=== PATIENT | female | born 2000 | race Caucasian/White ===

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

== ENCOUNTER 2021-04-19 10:37 | Outpatient (REF) | payer OTHER, SELFPAY ==
[2021-04-19 19:27] LABS: Anion Gap 12.8 mmol/L (3-11); BUN 14 mg/dL (7-18); CO2 24.2 mmol/L (21.0-32.0); CREATININE 0.7 mg/dL (0.55-1.02); Calcium 9.2 mg/dL (8.5-10.1); Chloride 103 mmol/L (98-107); Glucose 88 mg/dL (74-106); Potassium 4.3 mmol/L (3.5-5.1); Sodium 140 mmol/L (136-145)
== END 2021-04-19 10:38 | disposition home or self-care (01) ==
LOC: NCHCN 10:37
PROVIDERS: Visit Provider Nurse Practitioner Family
DX: Z51.81 Encounter for therapeutic drug level monitoring (principal); N89.8 Other specified noninflammatory disorders of vagina
CPT/HCPCS: 80048; 87480; 87510; 87660

== ENCOUNTER 2021-08-26 20:40 | Outpatient (REF) | payer MEDICAID, SELFPAY ==
[2021-08-28 14:49] LABS: Chlamydia Result Negative (Negative); GC Result Negative (Negative)
== END 2021-08-26 20:41 | disposition home or self-care (01) ==
LOC: LBN 20:40
PROVIDERS: Visit Provider Nurse Practitioner Family
DX: Z11.3 Encounter for screening for infections with a predominantly sexual mode of transmission (principal)
CPT/HCPCS: 87491; 87591

== ENCOUNTER 2022-06-02 18:48 | Outpatient (REF) | payer BC, SELFPAY ==
[2022-06-02 20:26] LABS: Bilirubin Negative (Negative); Blood Negative (Negative); Clarity Sl Cloudy (Clear); Glucose Negative (Negative); Ketones Negative (Negative); Leukocyte Esterase Negative (Negative); Nitrite Negative (Negative); Specific Gravity 1.025 (1.005-1.025); Urobilinogen 0.2 EU/dL (Up TO 0.2)
== END 2022-06-02 18:49 | disposition home or self-care (01) ==
LOC: NCHCN 18:48
PROVIDERS: Visit Provider Nurse Practitioner Family
DX: R10.9 Unspecified abdominal pain (principal)
CPT/HCPCS: 81003

== ENCOUNTER 2022-06-06 19:32 | Emergency (ER) | payer BC, SELFPAY ==
--- NOTE | 2022-06-06 19:43 | ED.GENADUL_ITS ---
Discharge Plan Disposition Patient Disposition: HOME Condition: Stable Discharge Details Clinical Impression: Ovarian cyst rupture Primary Care Provider: Kaylynn Tristan ED Provider: Jacqueline Magallon Home Meds and New Rx's Prescriptions: Continued norgestimate-ethinyl estradiol [[place]ah] 0.25-35 mg-mcg tablet 1 tab PO DAILY Discharge Instructions Instructions: Ovarian Cyst (ED) Additional Instructions: Please follow-up with the [facility] doctor listed Presents for ultrasound on Thursday 8 Should you have return of pain, you should have an immediate ultrasound Ibuprofen and Tylenol as needed for discomfort Referrals: Roxane Canales DO [OSTEOPATHIC DOCTOR] - Discharge Data Discharge Date/Time-TO BE ENTERED AT DEPARTURE: 06/06/22 23:17 Medical Decision Making Patient without obvious evidence of torsion, clinically patient is resting comfortably in room with mild tenderness in the right lower quadrant CT shows evidence of likely ruptured ovarian cyst, suspect this is hemorrhagic given her level of pain initially She is otherwise hemodynamically stable, CBC and CMP are reassuring She declines as needed analgesia She will take ibuprofen and Tylenol as needed for pain She is aware that she will need an emergent ultrasound of her ovaries should her pain return She is safe for outpatient ovarian ultrasound on Thursday as we do not have capability to perform ultrasonography in the evening or weekend facility Medical Records Medical records reviewed: Yes I reviewed the patient's medical records. Lab Data Lab results reviewed: Yes I reviewed the patient's lab results. HPI General Date/Time Provider Initiated Documentation: 06/06/22 19:41 . HPI Narrative: This otherwise healthy 21-year-old female presents with report of bilateral lower abdominal discomfort. She states this has been ongoing intermittently since the when she was seen at urgent care. States today she presents at approximately 3 she had severe pain in bilateral lower quadrants. She states that she had a similar episode on the but it resolved quickly. She states this episode lasted approximately 2 to 3 minutes and then resolved. At this time she is not in pain. She denies any nausea or vomiting. She denies history of urinary complaints. She denies any chance of . She denies risk of sexually transmitted disease and sexually active and monogamous with her partner. She denies any dyspareunia. Pain was reportedly initially exacerbated with ambulation, is now resolved. Sharp at time of onset. Related Data Home Medications Medication Instructions Recorded Confirmed norgestimate 0.25 mg-ethinyl 1 tab PO DAILY 10/26/20 06/09/22 estradiol 35 mcg tablet ([place]-L[place]ah) Allergies Allergy/AdvReac Type Severity Reaction Status Date / Time No Known Allergies Allergy Unverified 06/09/22 13:20 Review of Systems All systems reviewed & are unremarkable except as noted in HPI and below PFSH All Active Problems (Updated 06/09/22 @ 15:48 by JOHN Huff) Ovarian cyst rupture (Acute) Hemorrhagic cyst of ovary (Acute) Missed menses (Acute) Contraception (Acute) Family History Mother Hypothyroidism Father No problems noted. Sister No problems noted. Sister No problems noted. Brother No problems noted. Social History Smoking/Tobacco Use Status: Never Smoking risk assessment performed?: Yes Alcohol Intake: never Substance use type: does not use Do you feel safe at home: Yes Do you feel safe in your relationship?: Yes History History 0 Para Hx # Term Pregnancies Multiple births Hx # Pregnancies Ectopic pregnancies AB induced Hx Number of Living Children AB spontaneous Exam Const General: cooperative, comfortable and no acute distress Eyes Pupils: PERRL Resp Effort & Inspection: normal respiratory effort Auscultation: clear to auscultation bilaterally Cardio Rate: regular rate Rhythm: regular rhythm GI Inspection: normal to inspection Other: bilateral pelvic tenderness Skin General skin exam: no rashes or lesions noted Neuro General: patient alert and patient oriented x3
[2022-06-06 19:50] VITALS: BP 113/76; PULSE 92; RESP 16; TEMP 37.2; O2SAT 98
--- NOTE | 2022-06-06 20:15 | DI.CT_ITS ---
Exam(s) CT ABDOMEN PELVIS W EXAM: CT ABDOMEN PELVIS W CLINICAL HISTORY: RLQ pain. TECHNIQUE: Imaging Protocol: Axial computed tomography images with coronal and sagittal reformatted images were created and reviewed CONTRAST MATERIAL: Intravenous: Omnipaque 100cc Oral: None COMPARISON: US ABDOMEN PELVIS ULTRASOUND from 05/30/2017 FINDINGS: VISUALIZED LUNG BASES: No nodules nor pleural effusions evident. ABDOMEN: There is no ascites in the upper abdomen. LIVER: There are no focal hepatic lesions evident . GALLBLADDER/BILIARY: Gallbladder is collapsed. No obvious radiopaque calculi within the lumen. CBD is not dilated. PANCREAS: No evidence of pancreatic mass nor dilatation of the pancreatic duct. SPLEEN: Spleen is not enlarged. No obvious intrasplenic lesions. There is a 12 x 10 millimeter dens ity interposed between the spleen and lateral border of the upper pole left kidney. This is probably a benign splenule ADRENALS: There are no significant adrenal masses. KIDNEYS:No cysts evident. No solid renal masses. No calculi nor hydronephrosis.. ABDOMINAL AORTA: Abdominal aorta is not enlarged. LYMPH NODES:There is no retroperitoneal nor paraaortic adenopathy. ABDOMINAL WALL: No evidence of significant anterior abdominal wall nor inguinal hernia. GI: There is no evidence of bowel obstruction, free air, nor abscess. PELVIS: GI: The appendix is difficult to visualize as a separate structure here.No evidence of sigmoid divert iculitis. LYMPH NODES: There is no intrapelvic nor inguinal adenopathy. REPRODUCTIVE: Uterus is retroverted/retroflexed.. In the right adnexa there is a large cyst, probabl y ovarian. This measures 5.4 cm craniocaudal by 4.5 cm wide. Slightly smaller cyst in the left adne xa noted which is possibly in the process of rupturing, given its appearance, as well as moderate kerrie unt of fluid in the cul-de-sac. URINARY BLADDER: No calculi nor obvious masses evident OSSEOUS: No significant osseous lesions. No fractures. SI joints appear unremarkable. IMPRESSION: 1. Large cysts in both adnexal regions with a left ovarian cyst appearing to be rupturing and this ma y explain the small-moderate amount of free fluid in the dependent aspect of the gzwiqy-nfz-ni-sac. The uterus is noted to be retroverted-retroflexed. 2. 12 x 10 millimeter structure/density interposed between the nonenlarged spleen and the lateral bor tyler of the left kidney. This is probably a benign splenule. Study 1st read by [facility] RADIATION DOSE DELIVERED: 805.43mGy.cm Total DLP DATA REPOSITORY: All CT scans at this facility are submitted to the National Radiology Data Registry (NRDR) Dose Index Registry (DIR) with the [employer] (ACR). RADIATION OPTIMIZATION: All CT scans at this facility use at least one of these dose optimization te chniques: automated exposure control; mA and/or kV adjustment per patient size (includes targeted exa ms where dose is matched to clinical indication); or iterative reconstruction.
[2022-06-06 21:38] LABS: Bilirubin Negative (Negative); Blood Negative (Negative); Clarity Clear (Clear); Glucose Negative (Negative); Ketones Negative (Negative); Leukocyte Esterase Negative (Negative); Nitrite Negative (Negative)
[2022-06-06 21:38] LABS: Abs Immature Grans 0.03 10^3/uL (0.0-0.06); Absolute Basophil Count 0.03 10^3/uL (0.0-0.2); Absolute Eosinophil Count 0.09 10^3/uL (0.0-0.7); Absolute Lymphocyte Count 1.92 10^3/uL (1.2-3.4); Absolute Monocyte Count 0.45 10^3/uL (0.1-0.8); Absolute Neutrophil Count 4.86 10^3/uL (1.2-6.7); Basophils % 0.4; Eosinophils % 1.2; HCT 42.7 % (36.0-46.0); HGB 13.9 g/dL (11.2-15.7); Immature Grans % 0.4; MCH 28.6 pg (27.0-33.0); MCHC 32.6 % (32.0-36.0); MCV 88 fL (80-95); MPV 10.2 fL (8.0-11.0); Monocytes % 6.1; Neutrophils % 65.9; Platelet Count 247 10^3/uL (130-400); RBC 4.86 10^6/uL (3.93-5.22); RDW 12.8 % (11.7-14.6); RDW-SD 41.2 fL; WBC 7.38 10^3/uL (4.4-10.8)
[2022-06-06] MEDS: Omnipaque 350 MG/ML 100 ML BTL IJ (21:47)
[2022-06-06 21:52] LABS: ALT 24 U/L (14-59); AST 15 U/L (15-37); Albumin 3.9 g/dL (3.4-5.0); Alkaline Phosphatase 69 U/L (46-116); Anion Gap 7.4 mmol/L (3-11); BUN 7 mg/dL (7-18); Bilirubin, Total 0.2 mg/dL (0.2-1.0); CO2 28.6 mmol/L (21.0-32.0); CREATININE 0.6 mg/dL (0.55-1.02); Calcium 9.4 mg/dL (8.5-10.1); Chloride 104 mmol/L (98-107); Glucose 97 mg/dL (74-106); Potassium 3.9 mmol/L (3.5-5.1); Sodium 140 mmol/L (136-145); Total Protein 7.8 g/dL (6.4-8.2)
--- NOTE | 2022-06-06 22:27 | DI.VRAD_ITS ---
PROCEDURE INFORMATION: Exam: CT Abdomen And Pelvis With Contrast Exam date and time: 06/06/2022 9:48 PM Age: 21 years old Clinical indication: Other: Rlq pain TECHNIQUE: Imaging protocol: Computed tomography of the abdomen and pelvis with contrast. Radiation optimization: All CT scans at this facility use at least one of these dose optimization techniques: automated exposure control; mA and/or kV adjustment per patient size (includes targeted exams where dose is matched to clinical indication); or iterative reconstruction. Contrast material: OMNIPAQUE 350; Contrast volume: 100 ml; Contrast route: INTRAVENOUS (IV); COMPARISON: US ABDOMEN PELVIS ULTRASOUND 05/30/2017 1:08 PM FINDINGS: Lungs: The imaged lung bases are clear. Pleural spaces: No pleural effusion. Heart: The heart is normal in size. No pericardial effusion. Mediastinal space: The distal esophagus is normal appearance. Liver: The liver is mildly enlarged. No abnormal enhancement or mass. Gallbladder and bile ducts: The gallbladder is contracted. No calcified gallstones. No pericholecystic fluid or gallbladder wall thickening. No bile duct dilatation. Pancreas: The pancreas is normal appearance. No pancreatic ductal dilatation. Spleen: The spleen is normal appearance. Adrenal glands: The bilateral adrenal glands are normal appearance. Kidneys and ureters: The bilateral kidneys are normal appearance. Stomach and bowel: The stomach is normal appearance. The small bowel is nondilated and fluid-filled. A moderate amount of stool is seen throughout the colon to the level of the rectum. No bowel obstruction. Appendix: The appendix is normal appearance. Intraperitoneal space: No free air or abscess. A small to moderate amount of free pelvic fluid is seen, as described under the Reproductive findings. Vasculature: The abdominal aorta is normal in caliber without aneurysm. Lymph nodes: No lymphadenopathy. Urinary bladder: Mild circumferential wall thickening within the urinary bladder. The urinary bladder is nondistended. Reproductive: A large simple appearing right ovarian cyst is seen, measuring 5.3 x 4.7 x 6.3 cm. A probable defect is seen along the posterior wall of the cyst, adjacent to small to moderate amount of free pelvic fluid. This likely represents an acutely rupturing physiological cyst. A cyst is also seen within the left ovary, which appears to be collapsing, measuring 3.2 x 3.9 x 3.7 cm. A small amount of fluid also surrounds the left ovarian cyst. The uterus is normal appearance. Bones/joints: No acute osseous abnormality. Soft tissues: Unremarkable. IMPRESSION: 1. Large bilateral simple appearing ovarian cysts, with a small to moderate amount of free pelvic fluid. This likely represents physiological cysts, which are rupturing/ruptured. This can be confirmed with a pelvic ultrasound, as clinically indicated. 2. Mild circumferential wall thickening within the urinary bladder, which may be due to underdistension. Cystitis could have this appearance, in the correct clinical context. Dictated and Authenticated by: Ginna Thompson MD. Ordering:FELIX Phillips MD
[2022-06-06 23:15] VITALS: BP 108/64; PULSE 65; RESP 16; TEMP 37.2; O2SAT 99
--- NOTE | 2022-06-07 08:36 | NUR.NOTE ---
patient called to see if she needed to be on an abx for her burst cyst. Advised her that normally patients aren't put on an abx for this unless there was some sign of infection.
== END 2022-06-06 23:17 | disposition home or self-care (01) ==
PROVIDERS: Emergency Provider Physician Assistant; PCP Nurse Practitioner Family
DX: N83.11 Corpus luteum cyst of right ovary (principal)
CPT/HCPCS: 80053; 81025; 99285; 74177; 81003; 85025; 99284; J3490

== ENCOUNTER 2022-06-09 13:09 | Emergency (ER) | payer BC, SELFPAY ==
[2022-06-09 13:14] VITALS: BP 121/66; PULSE 84; RESP 16; TEMP 37.5; O2SAT 100
--- NOTE | 2022-06-09 14:55 | W.ED.GENAD ---
Discharge Plan Disposition Patient Disposition: HOME Condition: Stable Discharge Details Clinical Impression: Hemorrhagic cyst of ovary Primary Care Provider: Kaylynn Tristan ED Provider: Kya Rodriguez Home Meds and New Rx's Prescriptions: Continued norgestimate-ethinyl estradiol [[place]-Linyah] 0.25-35 mg-mcg tablet 1 tab PO DAILY Discharge Instructions Instructions: Ovarian Cyst (ED) Additional Instructions: As we discussed, your ultrasound shows cysts on both of your ovaries. I would like for you to follow up with [facility] to reassessment and continued management. Please call to schedule appointment, number listed below. You may use ibuprofen for discomfort. Please continue with your control until reassessed by [facility]. If you develop increased pain, fevers/chills, or other new/worsening symptoms, please seek care urgently once again. Referrals: Roxane Canales DO [OSTEOPATHIC DOCTOR] - Discharge Data Discharge Date/Time-TO BE ENTERED AT DEPARTURE: 06/09/22 15:56 Medical Decision Making Patient is a pleasant 21 year old female presenting today for results of her US after being seen in the ED 3 days ago with RLQ discomfort and CT findings concerning for ruptured ovarian cyst. She states pain has improved. No fevers/chills. No N/V. States that this was associated with menses. Had stopped her OCP briefly in the upcoming month as she was not sure if she was ready to concieve but went back on it. Typically does not have this type of pain with her menses since she began her OCP years ago. US reviewed by radiologist: UTERUS: Position: Retroverted. Size: 5.8 long by 4.0 AP by 5.0 transverse cm Endometrium: 0.8 cm. Normal for patient's menstrual status. Myometrium: Unremarkable. Cervix: Unremarkable. OVARIES: Right: 6.8 x 4.0 x 5.0 cm Cyst or mass: There is a 4.8 x 3.1 x 5.4 cm hemorrhagic cyst with retracting clot.? Left: 5.0 x 3.1 x 4.4 cm Cyst or mass: There is a 4 x 4 x 3.3 cm hemorrhagic cyst.? DOPPLER: Color: Symmetric and uniform flow to both ovaries.? CUL-DE-SAC: Free fluid: Small amount of fluid in the cul-de-sac.? Other: None. IMPRESSION: 1. Limited evaluation of the kidneys is unremarkable. 2. Normal-appearing uterus with endometrial stripe within normal limits. 3. Bilateral hemorrhagic cysts.? Consulted with Dr. Canales and reviewed tthe case, she advised that she will f/u with pt in clinic. Can use NSAID for discomfort. Discussed these recommendations with the patient. Discussed return precautions. As her pain is resolved at this time, no further emergent intervention warranted at this time. [facility] Patient also has not yet had her first PAP and encouraged she discuss this with them as well. All of her quesitons and concerns were addressed, she is in agreement with this plan. HPI General Date/Time Provider Initiated Documentation: 06/09/22 14:55. Limitations to Documentation: no limitations. Information obtained by: patient, RN notes reviewed and old records reviewed. History of Present Illness 21 year old F presents to the emergency department with the chief complaint of f/u for recent US of RUQ pain, concerned for ruptured ovarian cyst, described as mild (states pain has resolved since she was here 3 days ago), and is localized to the abdomen. Patient reports no radiation. Patient started experiencing this day(s) and it has been now resolved. No relieving factors improve symptom(s), No exacerbating factors reported . Patient notes no other symptoms.. Patient did receive the following treatments prior to arrival, none Related Data Home Medications Medication Instructions Recorded Confirmed norgestimate 0.25 mg-ethinyl 1 tab PO DAILY 10/26/20 06/09/22 estradiol 35 mcg tablet ([place]) Allergies Allergy/AdvReac Type Severity Reaction Status Date / Time No Known Allergies Allergy Unverified 06/09/22 13:20 General Stated Complaint: Recheck CORNELIA: 5 Review of Systems Constitutional Constitutional: Reports as per HPI, Denies chills and Denies fever(s) Cardiovascular Cardiovascular: Reports as per HPI and Denies dyspnea Respiratory Respiratory: Reports as per HPI, Denies cough and Denies dyspnea Gastrointestinal Gastrointestinal: Reports as per HPI Integumentary/Breasts Skin/Breast: Reports as per HPI and Denies rash PFSH All Active Problems (Updated 06/09/22 @ 15:48 by JOHN Huff) Ovarian cyst rupture (Acute) Hemorrhagic cyst of ovary (Acute) Missed menses (Acute) Contraception (Acute) Family History Mother Hypothyroidism Father No problems noted. Sister No problems noted. Sister No problems noted. Brother No problems noted. Social History Smoking/Tobacco Use Status: Never Smoking risk assessment performed?: Yes Alcohol Intake: never Substance use type: does not use Do you feel safe at home: Yes Do you feel safe in your relationship?: Yes History History 0 Para Hx # Term Pregnancies Multiple births Hx # Pregnancies Ectopic pregnancies AB induced Hx Number of Living Children AB spontaneous Exam Const General: cooperative, healthy appearing, comfortable, no acute distress and well developed Nutritional Appearance: average body habitus and well nourished Orientation: alert and awake Resp Effort & Inspection: normal respiratory effort, able to speak in complete sentences and no respiratory distress Skin General skin exam: no rashes or lesions noted Trauma: no lacerations or abrasions Neuro General: patient alert and patient awake Cognition: normal cognition Speech: speech normal Gait: normal gait Psych Appearance: grossly normal and well kempt Mental Status: mental status grossly normal Speech and Movement: speech and movement normal Course Vital Signs Vital signs: Vital Signs Temperature 37.5 C 06/09/22 13:14 Pulse 84 06/09/22 13:14 Respiratory Rate 16 06/09/22 13:14 Blood Pressure 121/66 06/09/22 13:14 Pulse Oximetry 100 06/09/22 13:14 Temperature 37.5 C 06/09/22 13:14 Temperature Source Temporal Artery Scan 06/09/22 13:14 Pulse 84 06/09/22 13:14 Respiratory Rate 16 06/09/22 13:14 Respiratory Effort Non-Labored 06/09/22 13:17 Blood Pressure 121/66 06/09/22 13:14 Blood Pressure Position Sitting 06/09/22 13:14 Pulse Oximetry 100 06/09/22 13:14 Oxygen Delivery Method Room Air 06/09/22 13:14 Oxygen Flow Rate 0 06/09/22 13:14 Pain Level 0 06/09/22 13:14
== END 2022-06-09 15:56 | disposition home or self-care (01) ==
PROVIDERS: Emergency Provider Physician Assistant; PCP Nurse Practitioner Family
DX: N83.201 Unspecified ovarian cyst, right side (principal); N83.202 Unspecified ovarian cyst, left side
CPT/HCPCS: 99281; 99282

== ENCOUNTER 2022-07-02 21:35 | Outpatient (REF) | payer BC, SELFPAY ==
[2022-07-03 14:41] LABS: Chlamydia Result Negative (Negative); GC Result Negative (Negative)
== END 2022-07-02 21:36 | disposition home or self-care (01) ==
LOC: LBN 21:35
PROVIDERS: PCP Nurse Practitioner Family; Visit Provider Obstetrics & Gynecology
DX: Z11.3 Encounter for screening for infections with a predominantly sexual mode of transmission (principal)
CPT/HCPCS: 87491; 87591

== ENCOUNTER 2022-12-01 13:32 | Outpatient (REF) | payer BC, SELFPAY ==
--- NOTE | 2022-12-01 13:20 | PAPFT_PTH ---
PATIENT: Delmy Lazo LOC: [facility] U#:[id number] AGE/SX: 22/F ROOM: RE12/01/[address]: Sangita Licona NP : 2000 BED: DIS: 12/01/2022 SPEC #: [id number] RECD: 12/01/22 17:52 STATUS: JORGE REGodwin #: [id number] NOÉ: 12/01/22 13:[address]: Sangita Licona NP DEPT: [facility], [facility] Cytology RECD BY: Jacqueline Tolbert ENTERED: 12/01/22 17:52 SP TYPE: PAPFT OTHR DR: Kaylynn Tristan Tissues: 1 - CX/ENDOCX FOR PAP SMEARS Procedures: PAP THIN PREP/UVM Screening Comments: [id number] (CHLAMYDIA/GC)
[2022-12-02 13:55] LABS: Chlamydia Result Negative (Negative); GC Result Negative (Negative)
== END 2022-12-01 13:33 | disposition home or self-care (01) ==
LOC: LBN 13:32
PROVIDERS: PCP Nurse Practitioner Family; Visit Provider Nurse Practitioner Women's Health
DX: Z11.3 Encounter for screening for infections with a predominantly sexual mode of transmission (principal); Z12.4 Encounter for screening for malignant neoplasm of cervix
CPT/HCPCS: 87491; 87591; 88142

== ENCOUNTER 2023-04-15 21:49 | Outpatient (REF) | payer BC, SELFPAY | END 2023-04-15 21:50 | disposition home or self-care (01) | LOC: NCHCN 21:49 | PROVIDERS: PCP Nurse Practitioner Family; Visit Provider Nurse Practitioner Family | DX: N89.8 Other specified noninflammatory disorders of vagina (principal) | CPT/HCPCS: 87480; 87510; 87660 ==

== ENCOUNTER 2023-04-24 20:58 | Outpatient (REF) | payer BC, SELFPAY ==
[2023-04-24 21:25] LABS: Bilirubin Negative (Negative); Blood Trace-intact (Negative); Clarity Clear (Clear); Glucose Negative (Negative); Ketones Negative (Negative); Leukocyte Esterase Negative (Negative); Nitrite Negative (Negative); Specific Gravity <= 1.005 (1.005-1.025); Urobilinogen 0.2 mg/dL (Up to 0.2)
[2023-04-24 21:47] LABS: Bacteria Rare HPF (Negative); C & S Indicated? No; Casts Negative LPF (Negative); Crystals Negative HPF (Negative); Epithelial Cells Rare HPF (Negative); Mucus Negative (Negative); RBC 0-2 HPF (0-2); WBC 0-2 HPF (0-5)
== END 2023-04-24 20:59 | disposition home or self-care (01) ==
LOC: LBN 20:58
PROVIDERS: PCP Nurse Practitioner Family; Visit Provider Physician Assistant
DX: N76.0 Acute vaginitis (principal); N39.0 Urinary tract infection, site not specified
CPT/HCPCS: 81003; 81015; 87480; 87510; 87660

== ENCOUNTER 2023-04-25 16:19 | Outpatient (REF) | payer BC, SELFPAY ==
[2023-04-27 09:34] LABS: Chlamydia Result Negative (Negative); GC Result Negative (Negative)
== END 2023-04-25 16:20 | disposition home or self-care (01) ==
LOC: LBN 16:19
PROVIDERS: PCP Nurse Practitioner Family; Visit Provider Physician Assistant
DX: R10.2 Pelvic and perineal pain (principal)
CPT/HCPCS: 87491; 87591

== ENCOUNTER 2023-09-21 16:51 | Outpatient (REF) | payer MEDICAID, SELFPAY ==
[2023-09-21 21:22] LABS: Bilirubin Negative (Negative); Blood Negative (Negative); Clarity Clear (Clear); Glucose Negative (Negative); Ketones Negative (Negative); Leukocyte Esterase Negative (Negative); Nitrite Negative (Negative); Specific Gravity 1.015 (1.005-1.025); Urobilinogen 0.2 mg/dL (Up to 0.2); pH 6.5 (5-8)
== END 2023-09-21 16:52 | disposition home or self-care (01) ==
LOC: LBN 16:51
PROVIDERS: PCP Nurse Practitioner Family; Visit Provider Nurse Practitioner Family
DX: R39.89 Other symptoms and signs involving the genitourinary system (principal); R35.0 Frequency of micturition; Z33.1 Pregnant state, incidental
CPT/HCPCS: 81003

== ENCOUNTER 2023-10-26 05:15 | Outpatient (CLI) | payer MEDICAID, SELFPAY ==
[2023-10-26 14:38] LABS: Panorama Kit Sent via Fed Ex
[2023-10-26 14:44] LABS: Abs Immature Grans 0.04 10^3/uL (0.0-0.06); Absolute Basophil Count 0.03 10^3/uL (0.0-0.2); Absolute Eosinophil Count 0.08 10^3/uL (0.0-0.7); Absolute Lymphocyte Count 1.71 10^3/uL (1.2-3.4); Absolute Monocyte Count 0.44 10^3/uL (0.1-0.8); Absolute Neutrophil Count 7.06 10^3/uL (1.2-6.7); Basophils % 0.3; Eosinophils % 0.9; HCT 38.5 % (36.0-46.0); Immature Grans % 0.4; Lymphocytes % 18.3; MCH 29.1 pg (27.0-33.0); MCHC 33.8 % (32.0-36.0); MCV 86 fL (80-95); MPV 9.7 fL (8.0-11.0); Monocytes % 4.7; Neutrophils % 75.4; Platelet Count 258 10^3/uL (130-400); RBC 4.47 10^6/uL (3.93-5.22); RDW 12.5 % (11.7-14.6); WBC 9.36 10^3/uL (4.4-10.8)
[2023-10-26 15:35] LABS: TSH (W/Ref FT4) 1.29 uIU/mL (0.36-3.74)
[2023-10-26 23:16] LABS: Hepatitis B Surface Ag Negative (Negative)
[2023-10-26 23:57] LABS: Hepatitis C Ab w Rflx HCV PCR Negative (Negative)
[2023-10-27 10:45] LABS: Rubella IgG Ab (UVM) Positive (See Note); Varicella IgG Antibody Negative (See Note)
[2023-10-27 11:25] LABS: HIV-1/2 Ag & Ab Screen Negative (Negative)
[2023-10-28 18:54] LABS: Syphilis IgG w/Reflex Nonreactive (Nonreactive)
[2023-11-13 12:42] LABS: Result Summary NEGATIVE; Specimen WB Whole Blood
== END 2023-10-26 05:16 | disposition home or self-care (01) ==
LOC: LBO 05:15
PROVIDERS: PCP Nurse Practitioner Family; Visit Provider Advanced Practice Midwife
DX: Z34.91 Encounter for supervision of normal pregnancy, unspecified, first trimester
CPT/HCPCS: 36415; 81220; 81222; 86787; 86803; 86850; 86900; 86901; 87340; 87389; 84443; 85025; 86762; 86780

== ENCOUNTER 2023-10-26 13:23 | Outpatient (REF) | payer MEDICAID, SELFPAY ==
[2023-10-26 15:53] LABS: *AMPHETAMINES SCREEN URINE Negative (Negative); *BARBITURATES SCREEN URINE Negative (Negative); *BENZODIAZEPINES SCREEN URINE Negative (Negative); Cannabinoids THC Negative (Negative); Cocaine Screen,Urine Negative (Negative); METHADONE URINE SCREEN Negative (Negative); OPIATES URINE SCREEN Negative (Negative)
[2023-10-26 15:56] LABS: Tricyclic Antidepressants Negative (Negative)
[2023-10-28 14:40] LABS: Chlamydia Result Negative (Negative); GC Result Negative (Negative)
[2023-10-30 08:52] LABS: Buprenorphine Negative ng/mL (Cutoff: 5.0); Norbuprenorphine Negative ng/mL (Cutoff: 2.5)
== END 2023-10-26 13:24 | disposition home or self-care (01) ==
LOC: LBN 13:23
PROVIDERS: PCP Nurse Practitioner Family; Visit Provider Advanced Practice Midwife
DX: Z34.91 Encounter for supervision of normal pregnancy, unspecified, first trimester
CPT/HCPCS: 80307; 80348; 87491; 87591; 87086

== ENCOUNTER → 2023-12-21 02:15 | Outpatient (CLI) | payer MEDICAID, SELFPAY ==
--- NOTE | 2023-12-21 07:30 | DI.US_ITS ---
Exam(s) US OB 2-3 TRIMESTER EXAM: US OB 2-3 TRIMESTER CLINICAL HISTORY: anatomy survey,z34.90,z34.91. TECHNIQUE: Transabdominal obstetrical ultrasound performed. COMPARISON: US US PELVIS TRANSVAGINAL from 06/09/2022 FINDINGS: Number of fetuses: 1 position: VARIED heart rate: 159bpm Placental location: There is a grade 1 posterior placenta. The placental tip is 4.6 cm from the inte rnal os. No evidence of previa. Amniotic fluid index: Amount of fluid is within normal limits. ANATOMICAL SURVEY: Within normal limits. BIOMETRIC DATA: BPD: 4.46cm, 19weeks 3days HC: 16.98cm, 19weeks 4days AC: 13.97cm, 19weeks 3days FL: 2.79cm, 18weeks 4days Cisterna magna: 6.6mm Cerebellum: 1.81cm Lateral ventricle: EFW: 271.41g, 0.61lb, 25.2% Composite Age: 19weeks 2days NAVA: 05/14/2024 Heart Rate: 159bpm ANATOMICAL SURVEY: Four-chambered heart: Unremarkable. RVOT: Unremarkable. LVOT: Unremarkable. Left-sided stomach: Unremarkable. urinary bladder: Unremarkable. Bilateral kidneys: Unremarkable. Three-vessel cord: Unremarkable. Cord insertion: Unremarkable. Posterior fossa: Unremarkable. ventricles: Unremarkable. nose/lips: Unremarkable. Palate: Unremarkable. spine: Unremarkable. Two arms and two legs: Unremarkable. IMPRESSION: 1. Single live intrauterine gestation as above. 2. Normal anatomic survey. DATA REPOSITORY:
== END ==
PROVIDERS: PCP Nurse Practitioner Family; Visit Provider Advanced Practice Midwife
DX: Z34.92 Encounter for supervision of normal pregnancy, unspecified, second trimester (principal); Z3A.19 19 weeks gestation of pregnancy
CPT/HCPCS: 76805

== ENCOUNTER 2024-01-04 12:23 | Outpatient (REF) | payer MEDICAID, SELFPAY | END 2024-01-04 12:24 | disposition home or self-care (01) | LOC: LBN 12:23 | PROVIDERS: PCP Nurse Practitioner Family; Visit Provider Advanced Practice Midwife | DX: O26.892 Other specified pregnancy related conditions, second trimester (principal); N89.8 Other specified noninflammatory disorders of vagina; Z3A.21 21 weeks gestation of pregnancy | CPT/HCPCS: 87480; 87510; 87660 ==

== ENCOUNTER 2024-01-30 03:47 | Emergency (ER) | payer MEDICAID, SELFPAY ==
[2024-01-30 03:50] VITALS: BP 127/71; PULSE 110; RESP 18; TEMP 36.8; O2SAT 100
[2024-01-30 04:19] LABS: Bilirubin Negative (Negative); Blood Large (Negative); Clarity Clear (Clear); Glucose Negative (Negative); Ketones Negative (Negative); Leukocyte Esterase Negative (Negative); Nitrite Negative (Negative); Urobilinogen 0.2 mg/dL (Up to 0.2)
[2024-01-30 04:21] LABS: Bacteria Rare HPF (Negative); C & S Indicated? No; Casts Negative LPF (Negative); Crystals Negative HPF (Negative); Epithelial Cells Few HPF (Negative); Mucus Negative (Negative); WBC Negative HPF (0-5)
[2024-01-30] MEDS: Normal Saline 1,000 ML 1000 ML IV (04:34)
[2024-01-30] MEDS: ACETAMINOPHEN 1,000 MG/100 ML BTL 400 MG IVPB (04:34)
[2024-01-30 04:35] LABS: Absolute Basophil Count 0.05 10^3/uL (0.0-0.2); Absolute Eosinophil Count 0.09 10^3/uL (0.0-0.7); Absolute Lymphocyte Count 1.29 10^3/uL (1.2-3.4); Absolute Monocyte Count 0.69 10^3/uL (0.1-0.8); Absolute Neutrophil Count 8.35 10^3/uL (1.2-6.7); Basophils % 0.5; Eosinophils % 0.8; HCT 33.8 % (36.0-46.0); HGB 11.4 g/dL (11.2-15.7); Immature Grans % 1.9; Lymphocytes % 12.1; MCH 30.4 pg (27.0-33.0); MCHC 33.7 % (32.0-36.0); MCV 90 fL (80-95); MPV 9.5 fL (8.0-11.0); Monocytes % 6.5; Neutrophils % 78.2; Platelet Count 190 10^3/uL (130-400); RBC 3.75 10^6/uL (3.93-5.22); RDW 13.5 % (11.7-14.6); RDW-SD 44.2 fL; WBC 10.67 10^3/uL (4.4-10.8)
--- NOTE | 2024-01-30 04:36 | W.ED.GENAD ---
Discharge Plan Disposition Patient Disposition: Home Condition: Improving Discharge Details Clinical Impression: Hematuria, Renal colic on left side Primary Care Provider: Kaylynn Tristan ED Provider: Kota Gary Home Meds and New Rx's Prescriptions: New metoclopramide HCl [Reglan] 10 mg tablet 10 mg PO Q8H PRN PRN (Reason: nausea and vomiting) Qty: 10 0RF hydrocodone-acetaminophen 5-325 mg tablet 1 tab PO Q8H PRN (Reason: pain) Qty: 10 0RF No Action PNV,calcium 16-hons-dqiro acid 27 mg iron- 1 mg tablet 1 tab PO DAILY Qty: 90 4RF Rx Instructions: give with food (meal/snack) Discharge Instructions Instructions: Renal Colic (ED) Additional Instructions: You can take two 325 mg acetaminophen tablets every 4-6 hours as needed for symptoms of left-sided flank pain. You can take 1 Reglan tablet every 8 hours as needed for symptoms of any nausea and vomiting that might develop. You can take 1 Yancey tablet up to every 8 hours as needed for pain not alleviated by the acetaminophen alone. Bear in mind that a Yancey tablet contains 325 mg of acetaminophen, so do not take additional acetaminophen with it. Yancey may make you sleepy or impair your coordination. Use caution similar to taking alcohol when using this medication. Never drive or perform any hazardous activities, be prepared to rest. Your symptoms are most likely going to resolve on their own over the course of the next 12 to 48 hours. If your symptoms are lasting longer than this, or not being treated well with this care plan, contact and follow-up with your [employer] group for further management instructions. You can always return to the ER for any new concerns or sudden changes in your health which you feel require emergency medical attention. Discharge Data Discharge Physician: Kota Gary [facility] General Date/Time Provider Initiated Documentation: 01/30/24 04:01. HPI Narrative: The patient is a 23-year-old female, G1, P0, at 25 weeks gestation, who presents the emergency department this evening complaining of a left flank discomfort which she describes as an intense tingling feeling which awoke her from sleep and prevented her from going back to bed. The patient urinated twice and saw blood in her urine, which she describes as a intense pink color. Patient denies any stabbing or piercing pain. The patient denies any nausea or vomiting associated with the symptoms. The patient has been having regular bowel movements. She denies having any significant prior history of recurrent urinary tract infections. She tells me that she only knows of 1 prior urinary tract infection which did not feel similar to this. She has not been sexually active with her current partner in the last 48 hours. She denies any bleeding from the vagina or any other vaginal discharge. Related Data Home Medications Medication Instructions Recorded Confirmed vitamin with calcium 1 tab PO DAILY #90 tabs 09/09/23 01/30/24 no.72-iron 27 mg-folic acid 1 mg tablet hydrocodone 5 mg-acetaminophen 325 1 tab PO Q8H PRN pain #10 tabs 01/30/24 mg tablet metoclopramide HCl 10 mg tablet 10 mg PO Q8H PRN PRN nausea and 01/30/24 (Reglan) vomiting #10 tabs Previous Rx's Medication Instructions Recorded vitamin with calcium 1 tab PO DAILY #90 tabs 09/09/23 no.72-iron 27 mg-folic acid 1 mg tablet hydrocodone 5 mg-acetaminophen 325 1 tab PO Q8H PRN pain #10 tabs 01/30/24 mg tablet metoclopramide HCl 10 mg tablet 10 mg PO Q8H PRN PRN nausea and 01/30/24 (Reglan) vomiting #10 tabs Allergies Allergy/AdvReac Type Severity Reaction Status Date / Time No Known Allergies Allergy Verified 01/30/24 03:58 General Stated Complaint: FlankPain CORNELIA: 3 Exam Const General: cooperative, healthy appearing, no acute distress, well developed and well groomed Resp Effort & Inspection: normal respiratory effort and able to speak in complete sentences Auscultation: clear to auscultation bilaterally Cardio Rate: regular rate Rhythm: regular rhythm GI Other: The patient has a gravid abdomen, with palpable movement. There are normal bowel sounds. There is no significant CVA tenderness. Neuro Cranial Nerves: CN's II-XI intact bilaterally Motor: muscle tone normal throughout and strength 5/5 throughout Sensory Exam: no sensory deficits noted Extrem Other: No significant cyanosis, clubbing, or edema. Course Vital Signs Vital signs: Vital Signs Temperature 36.8 C 01/30/24 03:50 Pulse 110 H 01/30/24 03:50 Respiratory Rate 18 01/30/24 03:50 Blood Pressure 127/71 01/30/24 03:50 Pulse Oximetry 100 01/30/24 03:50 Temperature 36.8 C 01/30/24 03:50 Temperature Source Temporal Artery Scan 01/30/24 03:50 Pulse 110 H 01/30/24 03:50 Respiratory Rate 18 01/30/24 03:50 Respiratory Effort Normal 01/30/24 03:56 Blood Pressure 127/71 01/30/24 03:50 Pulse Oximetry 100 01/30/24 03:50 Oxygen Delivery Method Room Air 01/30/24 03:50 Oxygen Flow Rate 0 01/30/24 03:50 Pain Level 2 01/30/24 03:56 Lab/Test Results Lab/Test Results: Laboratory Tests Range/Units 01/30/24 03:55 Urine Color (Yellow) Yellow Urine Clarity (Clear) Clear Urine pH (5-8) 7.0 Ur Specific [place] (1.005-1.025) 1.010 Urine Protein (Neg-Trace) mg/dL Negative Urine Ketones (Negative) mg/dL Negative Urine Blood (Negative) Large H Urine Nitrite (Negative) Negative Urine Bilirubin (Negative) Negative Urine Urobilinogen (Up to 0.2) mg/dL 0.2 Ur Leukocyte Esterase (Negative) Negative Urine RBC (0-2) HPF 10-20 H Urine WBC (0-5) HPF Negative Ur Epithelial Cells (Negative) HPF Few Urine Crystals (Negative) HPF Negative Urine Bacteria (Negative) HPF Rare Urine Casts (Negative) LPF Negative Urine Mucus (Negative) Negative Ur Culture Indicated? No Urine Glucose (Negative) mg/dL Negative Medical Decision Making The patient was seen and examined. Her urine was positive for essentially only red blood cells. A bedside ultrasound did not reveal any significant abnormalities in the visualized portions of the fetus or placenta. They did not appear to be any significant subchorionic bleeding on the visualized portions of the placenta. Images of the left kidney did not show any significant dilation of the calyx or visualized portions of the proximal ureter. While symptoms and available laboratory data to seem to support a likely renal stone in transit, there is no evidence to suggest a concomitant urinary tract infection. There were no white blood cells or leukocyte esterase within the urine. The patient does not have any fevers or chills. There are no urinary symptoms consistent with urinary tract infection such as urgency or frequency. The patient denies any lower pelvic cramping. The patient will have her kidney function checked here tonight, will be hydrated and given IV acetaminophen to help alleviate her discomfort. Assuming that she continues to have her current level of discomfort, the patient can most likely be discharged home with oral analgesics and close OB follow-up. 0630 - The patient has improved here in the ER with treatment. The patient likely has a small renal calculus which is minimally symptomatic, at least for now. I discussed the case with Dr. Jimenez, who will let the office know in case the patient has any significant decompnesation in the interval. Quality:SDOH Health Related Social Needs: No Data to Display PFSH All Active Problems (Updated 01/30/24 @ 06:34 by Kota Gary MD) Renal colic on left side (Acute) Hematuria (Acute) Rh negative state in antepartum period (Acute) Vaginal discharge during (Acute) Vaginal irritation (Acute) Sciatic nerve pain (Acute) Susceptible to varicella (non-immune), currently (Acute) Family history of thyroid disease in mother (Acute) (Acute) Medical History (Updated 01/30/24 @ 06:34 by Kota Gary MD) Constipation w/u by PCP, considering GI referral Hemorrhagic cysts of both ovaries Family History Mother Hypothyroidism Father No problems noted. Sister No problems noted. Sister No problems noted. Brother No problems noted. Social History Smoking/Tobacco Use Status: Never Smoking risk assessment performed?: Yes Alcohol Intake: never Substance use type: does not use current occupation: [employer] Pets and animals: Yes Pets and animals: dog(s) Sexually active: Yes Do you think of yourself as: straight/heterosexual Current gender identity: female Do you feel safe at home: Yes Do you feel safe in your relationship?: Yes History History 1 Para 0 Hx # Term Pregnancies 0 Multiple births 0 Hx # Pregnancies 0 Ectopic pregnancies 0 AB induced 0 Hx Number of Living Children 0 AB spontaneous 0
[2024-01-30 04:45] LABS: Anion Gap 11.7 mmol/L (3-11); BUN 8 mg/dL (7-18); CO2 23.3 mmol/L (21.0-32.0); CREATININE 0.5 mg/dL (0.55-1.02); Calcium 8.6 mg/dL (8.5-10.1); Chloride 105 mmol/L (98-107); Estimated GFR 135.91 (mL/min/1.73m2); Glucose 100 mg/dL (74-106); Potassium 3.7 mmol/L (3.5-5.1); Sodium 140 mmol/L (136-145)
[2024-01-30 06:34] VITALS: BP 104/61; PULSE 91; RESP 16; O2SAT 99
== END 2024-01-30 06:42 | disposition home or self-care (01) ==
PROVIDERS: Emergency Provider Emergency Medicine Emergency Medical Services; PCP Nurse Practitioner Family
DX: R10.32 Left lower quadrant pain (principal); N23 Unspecified renal colic; R31.9 Hematuria, unspecified; O26.832 Pregnancy related renal disease, second trimester
CPT/HCPCS: 36415; 80048; 96361; 96365; 99284; 81003; 81015; 85025; 99283; J0131

== ENCOUNTER 2024-02-03 11:49 | Outpatient (REF) | payer MEDICAID, SELFPAY | END 2024-02-03 11:50 | disposition home or self-care (01) | LOC: LBN 11:49 | PROVIDERS: PCP Nurse Practitioner Family; Visit Provider Advanced Practice Midwife | DX: O26.892 Other specified pregnancy related conditions, second trimester (principal); R30.0 Dysuria; R31.9 Hematuria, unspecified; Z3A.25 25 weeks gestation of pregnancy | CPT/HCPCS: 87086 ==

== ENCOUNTER → 2024-02-05 00:22 | Outpatient (CLI) | payer MEDICAID, SELFPAY ==
--- NOTE | 2024-02-05 06:45 | DI.US_ITS ---
Exam(s) US RENAL EXAM: US RENAL CLINICAL HISTORY: follow up POCUS done in ED,lt sided abd pain,hematuria in ,r31.9. TECHNIQUE: Jackson scale, color and spectral Doppler were used. COMPARISON: CT CT ABDOMEN PELVIS W from 06/06/2022 US POCUS EXAM from 10/01/2023 US US OB 2-3 TRIMESTER from 12/21/2023 FINDINGS: Renal size in cm: Right: 11.1. Left: 12.1. Echogenicity: Normal. Hydronephrosis: Moderate left hydronephrosis. Cyst or mass: No. Nephrolithiasis: There is a 1.4 cm echogenic focus in the inferior pole of the left kidney. There is a 4 mm echogenic focus in the upper pole of the left kidney. Other findings: There is a known intrauterine gestation present. No diagnostic images of the fetus w ere obtained. Bladder:Normal. Ureteral jets: Right: Not visualized on this examination. Left: Visualized and unremarkable. Prevoid vol:330 cc Postvoid vol:0 cc Renal color flow: Symmetric and within normal limits. IMPRESSION: 1. Moderate left hydronephrosis. 2. Echogenic foci in the left kidney suspicious for nephrolithiasis. DATA REPOSITORY:
== END ==
PROVIDERS: PCP Nurse Practitioner Family; Visit Provider Advanced Practice Midwife
DX: O26.892 Other specified pregnancy related conditions, second trimester (principal); R31.9 Hematuria, unspecified; R10.32 Left lower quadrant pain; N13.30 Unspecified hydronephrosis; N20.0 Calculus of kidney; Z3A.26 26 weeks gestation of pregnancy
CPT/HCPCS: 76770

== ENCOUNTER 2024-02-23 05:13 | Outpatient (CLI) | payer MEDICAID, SELFPAY ==
[2024-02-23 12:23] LABS: HCT 32.4 % (36.0-46.0); HGB 10.8 g/dL (11.2-15.7); MCH 30.3 pg (27.0-33.0); MCHC 33.3 % (32.0-36.0); MCV 91 fL (80-95); MPV 9.7 fL (8.0-11.0); Platelet Count 204 10^3/uL (130-400); RBC 3.56 10^6/uL (3.93-5.22); RDW 13.4 % (11.7-14.6); RDW-SD 44.6 fL; WBC 9.44 10^3/uL (4.4-10.8)
[2024-02-23 12:29] LABS: Glucose,1 Hr (Glucola) 156 mg/dL (80-140)
== END 2024-02-23 05:14 | disposition home or self-care (01) ==
LOC: LBO 05:13
PROVIDERS: PCP Nurse Practitioner Family; Visit Provider Advanced Practice Midwife
DX: Z34.93 Encounter for supervision of normal pregnancy, unspecified, third trimester (principal); O26.899 Other specified pregnancy related conditions, unspecified trimester; Z67.91 Unspecified blood type, Rh negative
CPT/HCPCS: 36415; 82950; 85027; 86850; 90384

== ENCOUNTER 2024-03-01 05:10 | Outpatient (CLI) | payer MEDICAID, SELFPAY ==
[2024-03-01 08:57] LABS: Glucose 1 Hour 157 mg/dL
[2024-03-01 10:59] LABS: Glucose 3 Hour 103 mg/dL
== END 2024-03-01 05:11 | disposition home or self-care (01) ==
LOC: LBO 05:10
PROVIDERS: PCP Nurse Practitioner Family; Visit Provider Advanced Practice Midwife
DX: Z34.93 Encounter for supervision of normal pregnancy, unspecified, third trimester (principal); Z3A.28 28 weeks gestation of pregnancy
CPT/HCPCS: 36415; 82951

== ENCOUNTER 2024-04-18 09:04 | Outpatient (CLI) | payer MEDICAID, SELFPAY ==
[2024-04-18 09:26] VITALS: BP 110/64; PULSE 102; TEMP 36.7
[2024-04-18 09:39] VITALS: BP 110/64; PULSE 102
[2024-04-18 10:30] LABS: HCT 34.4 % (36.0-46.0); HGB 11.2 g/dL (11.2-15.7); MCH 29.7 pg (27.0-33.0); MCHC 32.6 % (32.0-36.0); MCV 91 fL (80-95); Platelet Count 177 10^3/uL (130-400); RBC 3.77 10^6/uL (3.93-5.22); RDW 13.6 % (11.7-14.6); RDW-SD 45.7 fL; WBC 8.79 10^3/uL (4.4-10.8)
--- NOTE | 2024-04-18 10:39 | W.OBNST ---
Date of service: 04/18/24 Time of Service: 10:40 NST Evaluation Reason for NST Reasons for Nonstress Test: GESTATIONAL HYPERTENSION Gestational Age Gestational Age in Weeks and Days: 36 Weeks and 3Days Test and Monitor Explained Test/Monitor Explained: Test Explained, Monitor Explained and Patient Verbalized Understanding Vital Signs Blood Pressure: 110/64 Pulse: 102 Temperature: 98.1 F Urine Results Urine Protein: Negative Urine Ketones: Negative Urine Glucose: Negative Urine Blood: Negative NST Information Date on Monitor: 04/18/24 Time on Monitor: 09:28 Date off Monitor: 04/18/24 Time off Monitor: 09:55 Total Time on Monitor: 27 NST Interventions: None NST Evaluation Patient States Movement: Present FHR Baseline: 155 Variability: Moderate 6-25 bpm Accelerations: 15x15 Decelerations: None NST Results: Reactive Note Ultrasound Done: N/A. NST Note Note: Delmy experienced increased edema over the weekend in heat and humidity. Her ankles have a trace of edema this morning and she was seen at the Center. Relief methods discussed CBC drawn and is pending. GBS swab taken. Return to [facility] in 1 week. NST Reviewed and Verified by: Lea Harris
[2024-04-18 10:40] VITALS: BP 110/64; PULSE 102; TEMP 36.7
== END 2024-04-18 10:25 | disposition home or self-care (01) ==
LOC: BCD 09:05 → OBS 09:23
PROVIDERS: PCP Nurse Practitioner Family; Visit Provider Advanced Practice Midwife
DX: O13.3 Gestational [pregnancy-induced] hypertension without significant proteinuria, third trimester (principal); Z3A.36 36 weeks gestation of pregnancy
CPT/HCPCS: 59025; 36415; 85027; 87081

== ENCOUNTER 2024-05-20 02:17 | Inpatient (IN) | payer MEDICAID, SELFPAY ==
[2024-05-20] VITALS (203 sets, daily range): BP systolic 106–152; BP diastolic 54–94; PULSE 0–137; RESP 14–18; TEMP 36.5–37.4; O2SAT 97–100; BMI 39.4
--- OUTSIDE RECORDS SUMMARY | 2024-05-20 00:40 | XMS_ITS | Clinical Summary ---
Author Organization [facility] Address [facility] [place] [address] Care Team Providers Care Sort Line Name Role Phone Kaylynn Tristan APRN Primary Care Provider [phone] Allergies No known active allergies Medications Medication Sig Dispensed Refills Start Date End Date Status clobetasol-emollient (TEMOVATE E) 0.05 % Cream Apply to eczema twice daily 50 g 3 06/01/2017 Active medroxyPROGESTERone (DEPO-PROVERA) 150 mg/mL Suspension 05/23/2019 Active norgestimate-ethinyl estradioL (Sprintec-28) 0.25-35 mg-mcg Tablet Take 1 tablet by mouth. 10/26/2020 Active spironolactone (Aldactone) 100 mg Tablet Take one tablet by mouth nightly for one week then one tablet by mouth twice daily 60 tablet 1 01/25/2021 Active Active Problems Problem Noted Date Diagnosed Date Eczema 08/18/2017 Acne 12/01/2014 Eczematous dermatitis 01/31/2013 Social History Tobacco Use Types Packs/Day Years Used Date Smoking Tobacco: Never Smokeless Tobacco: Never Sex and Gender Information Value Date Recorded Sex Assigned at Not on file Gender Identity Not on file Sexual Orientation Not on file Plan of Treatment Health Maintenance Due Date Last Done Comments Chlamydia Screening 2016 HPV vaccine (1 - 3-dose series) 2016 HIV screen 2019 Hepatitis C Screening 2019 Hepatitis B vaccine (0-59 yrs) (1) 2020 Tdap adult 2020 Tetanus vaccine 2020 PAP Smear 2022 Covid-19 Vaccine ( season) 2023 Influenza (Flu) vaccine (1 o f 1 - Influenza standard series) 06/12/2024 Care Teams Sort Line Relationship Specialty Start Date End Date Kaylynn Tristan APRN [address] [place] [address] PCP - General Family Medicine 12/14/20
--- OUTSIDE RECORDS SUMMARY | 2024-05-20 00:40 | XMS_ITS | Encounter Summary ---
Author Organization [facility] Address [address] [place] [address] Care Team Providers Care Relief Captain Name Role Phone Saira Jeffers [facility] Primary Care Provider + Encounter Details Date Type Department Care Team (Late st Contact Info) Description 10/26/2023 Lab Requisition [facility] Pathology & Laboratory Medicine - [address] [address] Outr Resulting Lab, Provider Social History Tobacco Use Types Packs/Day Years Used Date Smoking Tobacco: Never Assessed Sex and Gender Information Value Date Recorded Sex Assigned at Not on file Gender Identity Not on file Sexual Orientation Not on file documented as of this encounter Plan of Treatment Not on file documented as of this encounter Procedures Procedure Name Priority Date/Time Associated Diagnosis Comments HIV 1/2 ANTIGEN AND ANTIBODY, 4TH GENERATION Routine 10/26/2023 14:30 EST documented in this encounter Results * HIV 1/2 ANTIGEN AND ANTIBODY, 4TH GENERATION (10/26/2023 14:30 EST) HIV 1 and 2 Antibody/p24 Antigen, 4th Generation Negative Negative 10/27/2023 11:20 EST [facility] Comment:If acute HIV-1 infec tion is suspected in a high risk patient, submit plasma specimen for HIV-1 RNA quantitation test. Blood VENOUS BLOOD / Unknown 10/26/2023 14:30 EST 10/26/2023 21:39 EST Narrative [facility] - 10/27/2023 11:20 EST Fourth Generation assay performed on the Siemens Centaur XPT. Provider Outr Resulting Lab IMMUNOLOGY A ND SEROLOGY ORDERABLES [facility] [address] [place] [address] documented in this encounter Visit Diagnoses Not on filedocumented in this encounter Care Teams Relief Captain Relationship Specialty Start Date End Date Saira Jeffers FNP-BC PCP - General 05/04/17 documented as of this encounter
--- OUTSIDE RECORDS SUMMARY | 2024-05-20 00:40 | XMS_ITS | Encounter Summary ---
Author Organization [facility] [place] [address] Care Team Providers Care Cooker Meal Name Role Phone Saira Linares APRN Primary Care Provider + Reason for Visit * Reason Comments Follow-up Encounter Details Date Type Department Care Team (Late st Contact Info) Description 10/29/2017 10:00 AM EST Office Visit Dermatology at [place] [address] [facility] [address] Reece Pacheco MD [address] [facility] [place] [address] Eczema, unspecified type Social History Tobacco Use Types Packs/Day Years Used Date Smoking Tobacco: Never Smokeless Tobacco: Never Sex and Gender Information Value Date Recorded Sex Assigned at Not on file Gender Identity Not on file Sexual Orientation Not on file documented as of this encounter Progress Notes * Reece Pacheco MD - 10/29/2017 10:00 AM EST PROBLEMS: 1. Acne vulgaris. 2. Followup eczematous dermatitis. Delmy follows up today by herself. She has been doing well. She has run out of medication so things are starting to act up a little bit again both in terms of the eczema and her acne. 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 Actually today, more just on the mild side. This is an improvement over her last visit. She does have some small a few scattered icepick scarred areas. She has no significant eczematous dermatitis on the antecubital fossa or body. She has some mild erythema and mild eczematous dermatitis on the antecubital fossa and behind her knees where it is recurring following running out of her cyclosporin on October 25. A/P: 1. Eczematous dermatitis, atopic, out of cyclosporin. a. Continue current dosing of cyclosporin. Will ask her just to take 1 mg p.o. b.i.d. through the winter months. b. Return to clinic in three months for repeat check. c. At that time, we will taper her down to one a day. d. Discussed the option of Dupixent, but I think for now I would stick with the modified cyclosporin, which is working well for her. e. Continue clobetasol cream p.r.n. for her eczema and CeraVe cream as an emollient for dry skin. 2. Acne vulgaris. a. The patient is out of her Bactrim, renew this double strength 1 p.o. b.i.d. #60 dispensed with two refills. b. Return to clinic in three months for repeat check. Answer patient questions. cc: Saira Linares APRN documented in this encounter Plan of Treatment Not on file documented as of this encounter Visit Diagnoses Diagnosis Eczema, unspecified type documented in this encounter Care Teams Cooker Meal Relationship Specialty Start Date End Date Saira Linares APRN [address] [place] [address] PCP - General Family Medicine 06/01/17 12/13/20 documented as of this encounter
--- OUTSIDE RECORDS SUMMARY | 2024-05-20 00:40 | XMS_ITS | Encounter Summary ---
Author Organization [facility] [place] [address] Care Team Providers Care Vaccine Key Customer Leader Name Role Phone Saira Linares APRN Primary Care Provider + Reason for Visit * Reason Comments Follow-up Encounter Details Date Type Department Care Team (Late st Contact Info) Description 12/31/2018 8:45 AM EDT Office Visit Dermatology at [address] [place] [address] Reece Pacheco MD [address] [facility] [place] [address] Eczema, unspecified type; Acne vulgaris Social History Tobacco Use Types Packs/Day Years Used Date Smoking Tobacco: Never Smokeless Tobacco: Never Sex and Gender Information Value Date Recorded Sex Assigned at Not on file Gender Identity Not on file Sexual Orientation Not on file documented as of this encounter Progress Notes * Reece Pacheco MD - 12/31/2018 8:45 AM EDT Problem: 1. Follow-up acne vulgaris using topical clindamycin 1% solution twice daily, off of oral antibiotics times 3 months 2. Follow-up atopic eczematous dermatitis on cyclosporine 100 mg 1 p.o. bid janet Brock follows up and continues to do beautifully. Both her acne and eczema doing well. She confides to me today that she actually has not been taking cyclosporine since June, when she had her wisdom teeth out and had to stop cyclosporine. Her acne has been doing well off of the Bactrim and is using the clindamycin solution in the morning and the tretinoin cream at night. Physical examination reveals a pleasant 18-year-old who has no active acne vulgaris today. Her blood pressure is good at 100/62. She has no eczema in the popliteal fossa, antecubital fossa but nothing on her neck and hands. Assessment plan: Eczematous dermatitis and atopic, quiescent, off of all therapies except for him on gentle emollients 1. Discontinue use of cyclosporine which patient did herself already back in June 2. Continue with CeraVe cream as an emollient, continue with clobetasol cream as needed for active eczema, and continue with sensitive skin care precautions. Avoid fragranced soaps detergents etc. Acne vulgaris, inflammatory, controlled 1. Continue clindamycin 1% solution apply to face in the mornings, and use tretinoin 0.025% cream in the evenings. 2. Return to clinic in 6 months for repeat check CC: Saira Linares APRN documented in this encounter Plan of Treatment Not on file documented as of this encounter Visit Diagnoses Diagnosis Eczema, unspecified type Acne vulgaris Other acne documented in this encounter Care Teams Vaccine Key Customer Leader Relationship Specialty Start Date End Date Saira Linares APRN [address] [place] [address] PCP - General Family Medicine 06/01/17 12/13/20 documented as of this encounter
--- OUTSIDE RECORDS SUMMARY | 2024-05-20 00:40 | XMS_ITS | Encounter Summary ---
Author Organization [facility] Address [address] [place] [address] Care Team Providers Care Slitter And Rewinder Name Role Phone Saira Jeffers [facility] Primary Care Provider + Encounter Details Date Type Department Care Team (Late st Contact Info) Description 04/26/2023 Lab Requisition [facility] Pathology & Laboratory Medicine - [address] [address] Outr Resulting Lab, Provider Social History Tobacco [...] Procedure Name Priority Date/Time Associated Diagnosis Comments CHLAMYDIA/N. GONORRHOEAE AMPLIFIED NUCLEIC ACID Routine 04/25/2023 17:00 EDT documented in this encounter Results * CHLAMYDIA/N. GONORRHOEAE AMPLIFIED RNA (04/25/2023 17:00 EDT) Neisseria gonorrhoeae Result Negative Negative 04/27/2023 9:28 EDT [facility] Chlamydia trachomatis Result Negative Negative 04/27/2023 9:28 EDT [facility] Urine URINE / Unknown 04/25/2023 1 7:00 EDT 04/26/2023 15:41 EDT Narrative [facility] - 04/27/2023 9:28 EDT A first catch urine specimen is acceptable for detection of Gonorrhea and Chlamydia, but might detect up to 10% fewer infections when compared with vaginal and endocervical swab samples. Provider Outr Resulting Lab MICROBIOLOGY - GENERAL ORDERABLES [facility] [address] [place] [address] documented in this encounter Visit Diagnoses Not on filedocumented in this encounter Care Teams Slitter And Rewinder Relationship Specialty Start Date End Date Saira Jeffers FNP- PCP - General 05/04/17 documented as of this encounter
--- OUTSIDE RECORDS SUMMARY | 2024-05-20 00:40 | XMS_ITS | Encounter Summary ---
Author Organization [facility] Address [facility] [place] [address] Care Team Providers Care Sleep Lab Technician Name Role Phone Saira Linares APRN Primary Care Provider + Encounter Details Date Type Department Care Team (Late st Contact Info) Description 07/03/2017 Refill Dermatology at [address] [place] [address] Bianca Schulz, PROFESSOR OF BIOLOGY Social History Tobacco Use Types Packs/Day Years Used Date Smoking Tobacco: Never Smokeless Tobacco: Never Sex and Gender Information Value Date Recorded Sex Assigned at Not on file Gender Identity Not on file Sexual Orientation Not on file documented as of this encounter Plan of Treatment Not on file documented as of this encounter Visit Diagnoses Not on filedocumented in this encounter Care Teams Sleep Lab Technician Relationship Specialty Start Date End Date Saira Linares APRN [address] [place] [address] PCP - General Family Medicine 06/01/17 12/13/20 documented as of this encounter
--- OUTSIDE RECORDS SUMMARY | 2024-05-20 00:40 | XMS_ITS | Encounter Summary ---
Author Organization [facility] [place] [address] Care Team Providers Care Weatherization And Housing Inspector Name Role Phone Abdi Ro MD Primary Care Provider [phone] Reason for Visit * Reason Comments Follow-up Encounter Details Date Type Department Care Team (Late st Contact Info) Description 12/01/2014 3:15 PM EST Office Visit Dermatology at [place] [address] [facility] [place] [address] [place] [address] Reece Pacheco MD [address] [facility], [place] [address] Eczematous dermatitis (Primary Dx); Acne vulgaris Discharge Disposition: Home Social History Tobacco Use Types Packs/Day Years Used Date Smoking Tobacco: Never Sex and Gender Information Value Date Recorded Sex Assigned at Not on file Gender Identity Not on file Sexual Orientation Not on file documented as of this encounter Patient Instructions * Patient Instructions* Rachel Clark LPN - 12/01/2014 3:19 PM EST Images from the original note were not included. [facility] Dermatitis: After Your Child's Visit Your Care Instructions Dermatitis is the general name used for any rash or inflammation of the skin. Different kinds of dermatitis cause different kinds of rashes. Common causes of a rash include new medicines, plants (such as poison oak or poison milton), heat, stress, and allergies to soaps, cosmetics, detergents, chemicals, and fabrics. Certain illnesses can also cause a rash. Unless caused by an infection, these rashes cannot be spread from person to person. How long your child's rash will last depends on what caused it. Rashes may last a few days or months. Follow-up care is a penn part of your child's treatment and safety. Be sure to make and go to all appointments, and call your doctor if your child is having problems. It's also a good idea to know your child's test results and keep a list of the medicines your child takes. How can you care for your child at home? ?? Do not let your child scratch. Cut your child's nails short, and file them smooth. Or you may have your child wear gloves if this helps keep him or her from scratching. ?? If you use soap on the rash, choose a gentle soap and use as little as possible. ?? Put cold, wet cloths on the rash to reduce itching. ?? Keep your child cool and out of the sun. Heat makes itching worse. ?? Leave the rash open to the air when you can. If your child's clothes have to cover the rash, have him or her wear cotton or silk. ?? If the rash itches, use hydrocortisone cream. Follow the directions on the label. Calamine lotion may help for plant rashes. ?? Try an aypp-nge-pltjqyy antihistamine such as diphenhydramine (Benadryl) or loratadine (Claritin). Read and follow all instructions on the label. ?? If your child gets a prescription steroid cream or pills, use them as directed. When should you call for help? Call your doctor now or seek immediate medical care if: ?? Your child has signs of infection, such as: ?? Increased pain, swelling, warmth, or redness. ?? Red streaks leading from the rash. ?? Pus draining from the rash. ?? A fever. ?? Your child has joint pain along with the rash. ?? The rash gets worse or spreads to other parts of your child's body. Watch closely for changes in your child's health, and be sure to contact your doctor if: ?? Your child does not get better after 2 to 3 weeks of home treatment. Where can you learn more? Visit our health information library at [email or web address] You can also view health information on [employer], your personal patient account. Log in or sign up today. Enter D979 in the search box to learn more about Dermatitis: After Your Child's Visit. ?? [phone] [facility] [employer] [employer], [place]. Care instructions adapted under license by [facility]. This care instruction is for use with your licensed healthcare professional. If you have questions about a medical condition or this instruction, always ask your healthcare professional. [employer] disclaims any warranty or liability for your use of this information. Content Version: 10.3.173276; Current as of: December 21, 2013 documented in this encounter Progress Notes * Reece Pacheco MD - 12/01/2014 3:50 PM EST Problem: Followup eczematous dermatitis. Delmy follows up today with her grandfather, Mani. She has been doing reasonably well but needs refills. Physical examination reveals mild patches of eczematous dermatitis on the right antecubital fossa and on her left medial ankle. Otherwise she has no cutaneous involvement. She has a little bit on the nape of the neck. She has erythematous, slightly hyperkeratotic patches. She has early opened and closed comedonal acne of the forehead and central face. Assessment and Plan: 1. 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 a. Patient has been using fluocinonide 0.1% cream, but would recommend that we switch now because of probable tachyphylaxis to another alternative corticosteroid, clobetasol cream. Use this q.day b.i.d. to affected areas of eczema as needed, 30 grams dispensed with three refills. b. Continue using CeraVe cream as an emollient. c. Continue avoiding fragranced products, soaps. d. For scalp involvement, she was given clobetasol solution to apply to scalp on a q.h.s. basis as needed, 60 mL dispensed with five refills; and also use ketoconazole 2% shampoo as a good shampoo as needed, 120 mL dispensed with five refills. 2. Acne vulgaris, facial, opened and closed comedonal. a. Today the patient states that things are good. Often she will have more inflammatory papules, but she never has involvement of the chest or back. b. Recommend that we begin clindamycin 1% solution, apply to face q.a.m., 60 mL dispensed with five refills; and begin tretinoin 0.025% cream, applying on a q.h.s. basis one half hour after washing, 20 grams dispensed with five refills. Return to clinic here at the point of diminishing returns. I am pleased to see that overall her eczema is improving with age and is now quite mild compared to when I saw her as a child. COPY: Abdi Ro M.D. documented in this encounter Plan of Treatment Not on file documented as of this encounter Visit Diagnoses Diagnosis Eczematous dermatitis- Primary Contact dermatitis and other eczema, due to unspecified cause Acne vulgaris Other acne documented in this encounter Care Teams Weatherization And Housing Inspector Relationship Specialty Start Date End Date Abdi Ro MD [address] [place] [address] PCP - General 09/03/10 05/31/17 documented as of this encounter
--- OUTSIDE RECORDS SUMMARY | 2024-05-20 00:40 | XMS_ITS | Encounter Summary ---
Author Organization [facility] Address [facility] [place] [address] Care Team Providers Care Patent Solicitor Name Role Phone Kaylynn Tristan MELISA Primary Care Provider [phone] Encounter Details Date Type Department Care Team (Late st Contact Info) Description 01/25/2021 2:45 PM EDT TH Visit (TeleHealth) Dermatology at [address] [place] [address] Reece Pacheco MD [address] [facility], [place] [address] Acne vulgaris Social History Tobacco Use Types Packs/Day Years Used Date Smoking Tobacco: Never Smokeless Tobacco: Never Sex and Gender Information Value Date Recorded Sex Assigned at Not on file Gender Identity Not on file Sexual Orientation Not on file documented as of this encounter Progress Notes * Reece Pacheco MD - 01/25/2021 2:45 PM EDT Problem: 1. ??Follow-up acne vulgaris ??using topical clindamycin 1% solution twice daily 2. ??Follow-up atopic eczematous dermatitis??off of cyclosporine??100 mg 1 p.o.??bid??modified??since June 2018 3. telehealth telephone platform visit Delmy is contacted today utilizing the telehealth telephone platform and did not see much improvement with 50 twice daily of cyclosporine. She is having some mild headaches associated with it. She has not had any other problems. She wonders about advancing the dosing. I think that would be a good idea. Assessment plan: Acne vulgaris inflammatory in a young adult 1. Advance spironolactone from 50 mg 1 p.o. twice daily to 100 mg. Take 100 mg nightly for a week then 1 p.o. twice daily thereafter. 2. Spironolactone 100 mg 1 p.o. nightly x1 week then 1 p.o. twice daily thereafter dispense #60 with 1 refill 3. We will plan another telehealth conference in 6 weeks. CC: Kaylynn Tristan APRN documented in this encounter Plan of Treatment Not on file documented as of this encounter Visit Diagnoses Diagnosis Acne vulgaris Other acne documented in this encounter Care Teams Patent Solicitor Relationship Specialty Start Date End Date Kaylynn Tristan APRN [address] [place] [address] PCP - General Family Medicine 12/14/20 documented as of this encounter
--- OUTSIDE RECORDS SUMMARY | 2024-05-20 00:40 | XMS_ITS | Encounter Summary ---
Author Organization [facility] Address [facility] [place] [address] Care Team Providers Care Brazing Furnace Feeder Name Role Phone Abdi Ro MD Primary Care Provider [phone] Reason for Visit * Reason Comments Eczema Encounter Details Date Type Department Care Team (Late st Contact Info) Description 01/31/2013 1:45 PM EDT Office Visit Dermatology [facility] [address] [place] [address] Reece Pacheco MD [address] [facility] [address], [place] [address] Eczematous dermatitis (Primary Dx) Social History Tobacco Use Types Packs/Day Years Used Date Smoking Tobacco: Never Sex and Gender Information Value Date Recorded Sex Assigned at Not on file Gender Identity Not on file Sexual Orientation Not on file documented as of this encounter Progress Notes * Reece Pacheco MD - 01/31/2013 2:02 PM EDT Problem is followup eczema. Delmy follows up today with her grandmother and apparently over the last couple of weeks she has had a bad flare of her eczema. She did well all winter. She was seen about a month ago by Dr. Ro for bronchitis and was given azithromycin, Phenergan with codeine, and also had been given Guiatuss. The eczema has gotten so bad and has so quickly gotten bad that she is not able to get ahead of it with her topicals, which heretofore have been working well for her. Physical examination reveals a pleasant 12-year-old whom I last saw in October of 2010. She has eczematous spongiotic papules individually and then coalescing into small patches widely over the torso, upper and lower extremities. On the antecubital and popliteal fossa, she has lichenified patches. Assessment and Plan: Eczematous dermatitis and atopic, flaring. a. Begin prednisone 10 mg, take three of these p.o. b.i.d. for four days, then two p.o. q.day for a week, one p.o. q.day for a week, then one p.o. q.o.day for a week, then discontinue. Dispensed one course. b. Refills called in for desoximetasone 0.25% ointment, which she can apply on a q.day basis b.i.d. 45 grams with five refills called in to [facility]. For eyelid involvement in the future, refills called in for her 2.5% hydrocortisone cream, which they can apply b.i.d. p.r.n. to affected areas. 45 grams dispensed with five refills. d. Recommend that they use CeraVe cream, as CeraVe cream is a better option than Eucerin for moisturizing her skin. They have been more recently just using Cetaphil lotion, but I think CeraVe would be much better for her eczema. Return to clinic here for future flares/problems. COPY: Abdi Ro M.D. documented in this encounter Plan of Treatment Not on file documented as of this encounter Visit Diagnoses Diagnosis Eczematous dermatitis- Primary Contact dermatitis and other eczema, due to unspecified cause documented in this encounter Care Teams Brazing Furnace Feeder Relationship Specialty Start Date End Date Abdi Ro MD [address] [place] [address] PCP - General 09/03/10 05/31/17 documented as of this encounter
--- OUTSIDE RECORDS SUMMARY | 2024-05-20 00:40 | XMS_ITS | Encounter Summary ---
Author Organization [facility] Address [address] [place] [address] Care Team Providers Care Seasonal Warehouse Associate Name Role Phone Saira Jeffers [facility] Primary Care Provider + Encounter Details Date Type Department Care Team (Late st Contact Info) Description 10/26/2023 Lab Requisition [facility] [place] [facility] Pathology & Laboratory Medicine - [address] [address] Outr Resulting Lab, Provider Social History Tobacco [...] Procedure Name Priority Date/Time Associated Diagnosis Comments HEPATITIS C AB W REFLEX TO HCV RNA BY PCR Routine 10/26/2023 14:30 EST HEPATITIS B SURFACE ANTIGEN Routine 10/26/2023 14:30 EST documented in this encounter Results * HEPATITIS B SURFACE ANTIGEN (10/26/2023 14:30 EST) Hep B Surface Ag Negative Negative 10/26/2023 23:11 EST [facility] Blood VENOUS BLOOD / Unknown 10/26/2023 14:30 EST 10/26/2023 21:32 EST Provider Outr Resulting Lab CHEMISTRY & BLOOD GAS ORDERABLES [facility] [address] [place] [id number] * HEPATITIS C AB W REFLEX TO HCV RNA BY PCR (10/26/2023 14:30 EST) Hep C Antibody Negative Negative 10/26/2023 23:51 EST [facility] Blood VENOUS BLOOD / Unknown 10/26/2023 14:30 EST 10/26/2023 21:32 EST Provider Outr Resulting Lab CHEMISTRY & BLOOD GAS ORDERABLES Performing Organization Address City/State/[facility] Co de Phone Number [facility] [address] [place] [address] documented in this encounter Visit Diagnoses Not on filedocumented in this encounter Care Teams Seasonal Warehouse Associate Relationship Specialty Start Date End Date Saira Jeffers, DIGITAL FORENSIC EXAMINER-DICK PCP - General 05/04/17 documented as of this encounter
--- OUTSIDE RECORDS SUMMARY | 2024-05-20 00:40 | XMS_ITS | Encounter Summary ---
Author Organization [facility] Address [facility] [place] [address] Care Team Providers Care Heavy Truck Mechanic Name Role Phone Kaylynn Tristan MELISA Primary Care Provider [phone] Encounter Details Date Type Department Care Team (Late st Contact Info) Description 08/30/2021 9:30 AM EST TH Visit (TeleHealth) Dermatology at [address] [place] [address] Reece Pacheco MD [address] [facility], [place] [address] Acne vulgaris; Eczema, unspecified type Social History Tobacco Use Types Packs/Day Years Used Date Smoking Tobacco: Never Smokeless Tobacco: Never Sex and Gender Information Value Date Recorded Sex Assigned at Not on file Gender Identity Not on file Sexual Orientation Not on file documented as of this encounter Progress Notes * Reece Pacheco MD - 08/30/2021 9:30 AM EST Problem: 1. ??Follow-up acne vulgaris now on spironolactone 100 mg 1 p.o. twice daily x6 weeks 2. ??Follow-up atopic eczematous dermatitis??off of cyclosporine??100 mg 1 p.o.??bid??modified??since June 2018 3. On no active therapy for her atopic eczematous dermatitis 4.?? telehealth telephone platform visit ?? Delmy follows up utilizing the [employer] telephone platform. She states her acne is quiescent. She has even been able to stop the spironolactone and has had no flares of her acne since September. 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 As she is getting a little bit of some eczema acting up with the change of seasons on her hands but she is able to control this with the CeraVe cream and clobetasol. Assessment plan: Adult acne vulgaris 1. Quiescent 2. Patient off of spironolactone 3. Agree with cessation of medication return to clinic now will be as needed. Eczematous dermatitis and atopic, quiescent 1. Continue sensitive skin care precautions 2. Continue CeraVe cream as emollient 3. If her flare hands flare, continue with clobetasol as needed. 4. Return to clinic as needed. CC: Kaylynn Tristan APRN documented in this encounter Plan of Treatment Not on file documented as of this encounter Visit Diagnoses Diagnosis Acne vulgaris Other acne Eczema, unspecified type documented in this encounter Care Teams Heavy Truck Mechanic Relationship Specialty Start Date End Date Kaylynn Tristan APRN [address] [place] [address] PCP - General Family Medicine 12/14/20 documented as of this encounter
--- OUTSIDE RECORDS SUMMARY | 2024-05-20 00:40 | XMS_ITS | Encounter Summary ---
Author Organization [facility] Address [facility] [place] [address] Care Team Providers Care Rodent Exterminator Name Role Phone Abdi Ro MD Primary Care Provider [phone] Encounter Details Date Type Department Care Team (Late st Contact Info) Description 10/14/2010 4:45 PM EST Office Visit Dermatology [address] [facility] [address] [place], [place] [address] Reece Pacheco MD [address] [place] [address], [place] [address] Social History Tobacco Use Types Packs/Day Years Used Date Smoking Tobacco: Never Assessed Sex and Gender Information Value Date Recorded Sex Assigned at Not on file Gender Identity Not on file Sexual Orientation Not on file documented as of this encounter Plan of Treatment Not on file documented as of this encounter Visit Diagnoses Not on filedocumented in this encounter Care Teams Rodent Exterminator Relationship Specialty Start Date End Date Abdi Ro MD [address] [place] [address] PCP - General 09/03/10 05/31/17 documented as of this encounter
--- OUTSIDE RECORDS SUMMARY | 2024-05-20 00:40 | XMS_ITS | Encounter Summary ---
Author Organization [facility] Address [facility] [place] [address] Care Team Providers Care Administrative Associate Name Role Phone Kaylynn Tristan MELISA Primary Care Provider [phone] Reason for Visit * Reason Comments Acne Encounter Details Date Type Department Care Team (Late st Contact Info) Description 12/14/2020 8:45 AM EST Office Visit Dermatology at [place] [address] [place] [phone] Reece Pacheco MD [address] [facility], [place] [address] Eczema, unspecified type; Acne vulgaris Social History Tobacco Use Types Packs/Day Years Used Date Smoking Tobacco: Never Smokeless Tobacco: Never Sex and Gender Information Value Date Recorded Sex Assigned at Not on file Gender Identity Not on file Sexual Orientation Not on file documented as of this encounter Progress Notes * Reece Pacheco MD - 12/14/2020 8:45 AM EST Problem: 1. ??Follow-up acne vulgaris ??using topical clindamycin 1% solution twice daily 2. ??Follow-up atopic eczematous dermatitis off of cyclosporine 100 mg 1 p.o.??bid??modified since June 2018 ?? Delmy follows up and is now 20. She is working at [employer]'s first shift, 4 days a week. Her eczema is really quiesced sent. She is pleased about that. She is using clindamycin once or twice a day but her facial acne is getting worse gradually over time. Physical examination reveals a pleasant 20-year-old who has acne on the jawline and the lateral cheeks but sparing the chest the back sparing her neck and sparing her forehead. Assessment plan: Acne vulgaris, inflammatory, no longer controlled with clindamycin 1% solution 1. Begin spironolactone 50 mg 1 p.o. every morning for 1 week then 1 p.o. twice daily thereafter dispense #60 with 1 refill. 2. We will call in to her [facility] [place] 3. Plan a telephone follow-up in 6 weeks. Consider advancing dose if necessary Atopic eczematous dermatitis, now in remission 1. Continue with CeraVe cream and as needed use of clobetasol if and when needed. CC: Kaylynn Tristan APRN documented in this encounter Plan of Treatment Not on file documented as of this encounter Visit Diagnoses Diagnosis Eczema, unspecified type Acne vulgaris Other acne documented in this encounter Care Teams Administrative Associate Relationship Specialty Start Date End Date Kaylynn Tristan APRN [address] [place] [address] PCP - General Family Medicine 12/14/20 documented as of this encounter
--- OUTSIDE RECORDS SUMMARY | 2024-05-20 00:40 | XMS_ITS | Encounter Summary ---
Author Organization [facility] Address [facility] [place] [address] Care Team Providers Care Cattle Examiner Name Role Phone Saira Linares APRN Primary Care Provider + Reason for Visit * Reason Comments Follow-up Acne Encounter Details Date Type Department Care Team (Late st Contact Info) Description 07/03/2017 4:30 PM EDT Office Visit Dermatology at [address] [place] [address] Reece Pacheco MD [address] [facility], [place] [address] Eczema, unspecified type Social History Tobacco Use Types Packs/Day Years Used Date Smoking Tobacco: Never Smokeless Tobacco: Never Sex and Gender Information Value Date Recorded Sex Assigned at Not on file Gender Identity Not on file Sexual Orientation Not on file documented as of this encounter Progress Notes * Reece Pacheco MD - 07/03/2017 4:30 PM EDT PROBLEM: 1. Followup eczematous dermatitis. 2. Followup acne vulgaris. Delmy follows up with her grandmother, Gabby. Her acne has been doing much better since we started cyclosporin 100 mg modified 1 p.o. b.i.d. 1 month ago. She has been having a little bit of a queasy feeling in her stomach, however. She has been taking medication sometimes on a full stomach, sometimes not. Also, after 2 weeks of not seeing improvement with the minocycline she stopped it. Physical examination reveals a pleasant 16-year-old who has widespread eczematous patches on the nape of the neck, the popliteal antecubital fossa, on her arms and legs are much better. They are much less prominent. She had a little bit of itching last night and so has some eczematous patches on the dorsal hands between the finger web spaces. However, certainly is much better. Her acne, unfortunately, still is fairly prominent with moderate severity, open and closed comedonal acne and moderate inflammatory acne vulgaris involvement of the face too. Blood pressure today was taken and was 110/70. ASSESSMENT AND PLAN: 1. Eczematous dermatitis, atopic, improved. a. Continue cyclosporin modified 100 mg p.o. b.i.d., #60 dispensed with 1 refill called into her [facility]. Plan another 6 weeks. Then return to clinic. Will taper down once at that point. b. Mentioned briefly the option of other therapy such as Dupixent. c. Continue clobetasol cream applying this b.i.d. 2. Acne vulgaris. a. Cautioned patient that acne therapies take 4-6 weeks of regular rastafarian dosing before she will see improvement. b. Double dosing of her minocycline to 50-100 mg 1 p.o. b.i.d., #60 dispensed with 1 refill. Return to clinic in 6 weeks for repeat check. CC: Saira Linares APRN documented in this encounter Plan of Treatment Not on file documented as of this encounter Visit Diagnoses Diagnosis Eczema, unspecified type documented in this encounter Care Teams Cattle Examiner Relationship Specialty Start Date End Date Saira Linares APRN [address] [place] [address] PCP - General Family Medicine 06/01/17 12/13/20 documented as of this encounter
--- OUTSIDE RECORDS SUMMARY | 2024-05-20 00:40 | XMS_ITS | Referral Summary ---
Author Organization [facility] Address [address] [place] [address] Care Team Providers Care Dining Manager Name Role Phone Saira Jeffers [facility] Primary Care Provider + Social History Tobacco Use Types Packs/Day Years Used Date Smoking Tobacco: Never Assessed Sex and Gender Information Value Date Recorded Sex Assigned at Not on file Gender Identity Not on file Sexual Orientation Not on file Plan of Treatment Not on file Procedures Procedure Name Priority Date/Time Associated Diagnosis Comments HEPATITIS C AB W REFLEX TO HCV RNA BY PCR Routine 10/26/2023 14:30 EST from Last 3 Months or Most Recently Relevant to Health Maintenance Results * HEPATITIS C AB W REFLEX TO HCV RNA BY PCR (10/26/2023 14:30 EST) Hep C Antibody Negative Negative 10/26/2023 23:51 EST [facility] Blood VENOUS BLOOD / Unknown 10/26/2023 14:30 EST 10/26/2023 21:32 EST Provider Outr Resulting Lab CHEMISTRY & BLOOD GAS ORDERABLES [facility] [address] [place] [address] from Last 3 Months or Most Recently Relevant to Health Maintenance Care Teams Dining Manager Relationship Specialty Start Date End Date Saira Jeffers [facility] PCP - General 05/04/17
--- OUTSIDE RECORDS SUMMARY | 2024-05-20 00:40 | XMS_ITS | Clinical Summary ---
Author Organization [facility] Address [address] [place] [address] Care Team Providers Care Furniture Lumber Production Worker Name Role Phone Saira Jeffers [facility]- Primary Care Provider + Social History Tobacco Use Types Packs/Day Years Used Date Smoking Tobacco: Never Assessed Sex and Gender Information Value Date Recorded Sex Assigned at Not on file Gender Identity Not on file Sexual Orientation Not on file Plan of Treatment Health Maintenance Due Date Last Done Comments Hepatitis B Vaccine (1 of 3 - 19+ 3-dose series) 08/11 COVID-19 Vaccine (2022- season) 2023 Hepatitis C Screen Completed 10/26/2023 Procedures Procedure Name Priority Date/Time Associated Diagnosis Comments HEPATITIS C AB W REFLEX TO HCV RNA BY PCR Routine 10/26/2023 14:30 EST from Last 3 Months or Most Recently Relevant to Health Maintenance Results * HEPATITIS C AB W REFLEX TO HCV RNA BY PCR (10/26/2023 14:30 EST) Hep C Antibody Negative Negative 10/26/2023 23:51 EST [facility] Blood VENOUS BLOOD / Unknown 10/26/2023 14:30 EST 10/26/2023 21:32 EST Provider Outr Resulting Lab CHEMISTRY & BLOOD GAS ORDERABLES [facility] [address] [place] [address] from Last 3 Months or Most Recently Relevant to Health Maintenance Care Teams Furniture Lumber Production Worker Relationship Specialty Start Date End Date [facility] PCP - General 05/04/17
--- OUTSIDE RECORDS SUMMARY | 2024-05-20 00:40 | XMS_ITS | Encounter Summary ---
Author Organization [facility] Address [facility] [place] [address] Care Team Providers Care Cw Operator Name Role Phone Kaylynn Tristan APRN Primary Care Provider [phone] Encounter Details Date Type Department Care Team (Late st Contact Info) Description 12/14/2020 Refill Dermatology at [address] [place] [phone] Bianca Schulz, OLIVE KNOCKER Social History Tobacco Use Types Packs/Day Years [...] on filedocumented in this encounter Care Teams Cw Operator Relationship Specialty Start Date End Date Kaylynn Tristan APRN [address] [place] [address] PCP - General Family Medicine 12/14/20 documented as of this encounter
--- OUTSIDE RECORDS SUMMARY | 2024-05-20 00:40 | XMS_ITS | Encounter Summary ---
Author Organization [facility] Address [facility] [place] [address] Care Team Providers Care Raimann Machine Operator Name Role Phone Kaylynn Tristan MELISA Primary Care Provider [phone] Encounter Details Date Type Department Care Team (Late st Contact Info) Description 03/01/2021 3:45 PM EDT TH Visit (TeleHealth) Dermatology at [place] [address] [facility] [place] [address] Reece Pacheco MD [address] [facility] [place] [address] Acne vulgaris; Eczema, unspecified type Social History Tobacco Use Types Packs/Day Years Used Date Smoking Tobacco: Never Smokeless Tobacco: Never Sex and Gender Information Value Date Recorded Sex Assigned at Not on file Gender Identity Not on file Sexual Orientation Not on file documented as of this encounter Progress Notes * Reece Pacheco MD - 03/01/2021 3:45 PM EDT Problem: 1. ??Follow-up acne vulgaris now on spironolactone 100 mg 1 p.o. twice daily x6 weeks 2. ??Follow-up atopic eczematous dermatitis??off of cyclosporine??100 mg 1 p.o.??bid??modified??since June 2018 3. On no active therapy for her atopic eczematous dermatitis 4. telehealth telephone platform visit Delmy follows up utilizing the [employer] telephone platform and is enjoying a day of from work. She states that her acne is doing much better. The 100 mg twice daily is working well for her without any side effects. While she does have some increased urination she has no headaches and no intermenstrual spotting. She states that if she gets an acne breakout, it is limited to just 1 or 2 lesions and these do not last long they heal very rapidly. She is pleased with his progress and will like to continue the medication. Assessment and plan: Acne vulgaris, inflammatory in a young adult 1. Continue spironolactone 100 mg 1 p.o. twice daily dispense #180 for a 3-month supply with 1 refill 2. We will plan another telehealth telephone visit in 6 months. 3. Patient to contact us with any questions or concerns. 4. Congratulated on her wonderful response to therapy History of atopic eczematous dermatitis 1. Quiescent off of all treatments. CC: Kaylynn Tristan APRN ?? documented in this encounter Plan of Treatment Not on file documented as of this encounter Visit Diagnoses Diagnosis Acne vulgaris Other acne Eczema, unspecified type documented in this encounter Care Teams Raimann Machine Operator Relationship Specialty Start Date End Date Kaylynn Tristan APRN [address] [place] [address] PCP - General Family Medicine 12/14/20 documented as of this encounter
--- OUTSIDE RECORDS SUMMARY | 2024-05-20 00:40 | XMS_ITS | Encounter Summary ---
Author Organization [facility] [place] [address] Care Team Providers Care Airline Pilot/First Officer Name Role Phone Saira Linares APRN Primary Care Provider + Reason for Visit * Reason Comments Eczema Follow-up Encounter Details Date Type Department Care Team (Late st Contact Info) Description 06/01/2017 4:00 PM EDT Office Visit Dermatology at [address] [place] [address] Reece Pacheco MD [address] [facility] [place] [address] Eczema, unspecified type Social History Tobacco Use Types Packs/Day Years Used Date Smoking Tobacco: Never Smokeless Tobacco: Never Sex and Gender Information Value Date Recorded Sex Assigned at Not on file Gender Identity Not on file Sexual Orientation Not on file documented as of this encounter Progress Notes * Reece Pacheco MD - 06/01/2017 4:00 PM EDT PROBLEM: Followup eczematous dermatitis. Delmy follows up today with her grandmother, Gabby. Unfortunately, her eczema is flaring and has been flaring since last winter. Physical examination reveals a pleasant now 16-year-old who has widespread eczematous patches in the posterior scalp, on the nape of her neck, in the popliteal and antecubital fossae, patchy areas on the arms, on her legs. When she tries to shave, she will get eczema. Her skin is diffusely xerotic. She does not have any significant folliculitis but some areas do appear to be perhaps colonized. A/P: 1. Eczematous dermatitis in atopic currently flaring for several months. a. Patient was given triamcinolone cream to use by her PCP which unfortunately has not been helpful. b. Recommend that we begin cyclosporin 100 mg 1 p.o. b.i.d.; #60 dispensed with zero refills, called into [facility] in [facility]. We will taper her rapidly down and off of this once her skin is controlled. She is beyond the reach of just using simple topicals. c. Begin clobetasol cream, apply to eczema on a b.i.d. basis; 50 g dispensed with 3 refills. Also this will be called into [facility] in [facility]. 2. Acne vulgaris. a. Begin minocycline 50 mg 1 p.o. b.i.d.; dispense #60 with 2 refills. Also called into [facility]. This will also help with her bacterial colonization. b. Recommend using a fragrance-free shampoo such as Free and Clear or DHS Clear shampoo. c. Continue using fragrance-free soap. Follow sensitive skin care precautions. Return to clinic in a month for repeat check. cc: Saira Linares APRN documented in this encounter Plan of Treatment Not on file documented as of this encounter Visit Diagnoses Diagnosis Eczema, unspecified type documented in this encounter Care Teams Airline Pilot/First Officer Relationship Specialty Start Date End Date Saira Linares APRN [address] [place] [address] PCP - General Family Medicine 06/01/17 12/13/20 documented as of this encounter
--- OUTSIDE RECORDS SUMMARY | 2024-05-20 00:40 | XMS_ITS | Encounter Summary ---
Author Organization [facility] Address [facility] [place] [address] Care Team Providers Care Talent Acquisition Program Manager Name Role Phone Saira Linares APRN Primary Care Provider + Reason for Visit * Reason Comments Follow-up Eczema Encounter Details Date Type Department Care Team (Late st Contact Info) Description 09/17/2018 2:00 PM EST Office Visit Dermatology at [address] [place] [address] Reece Pacheco MD [address] [facility] [place] [address] Eczema, unspecified type; Acne vulgaris Social History Tobacco Use Types Packs/Day Years Used Date Smoking Tobacco: Never Smokeless Tobacco: Never Sex and Gender Information Value Date Recorded Sex Assigned at Not on file Gender Identity Not on file Sexual Orientation Not on file documented as of this encounter Progress Notes * Reece Pacheco MD - 09/17/2018 2:00 PM EST Problem: 1. Follow-up acne vulgaris using topical clindamycin 1% solution twice daily, off of oral antibiotics times 3 months 2. Follow-up atopic eczematous dermatitis on cyclosporine 100 mg 1 p.o. daily janet Brock follows up and is doing beautifully. Both her acne is doing well and her eczema. Physical examination reveals a pleasant 18-year-old who just had her 18th birthday and has good blood pressure today of 100/64. She has moderate comedonal acne however that is forming, but no significant inflammatory involvement. She has no eczema in the popliteal fossa nor in the antecubital fossa. She has really minimal to no eczema on her neck and hands she doing very well. She is quite pleased. Renal function studies 3 months were within normal limits. Assessment plan: Eczematous dermatitis in an atopic, doing well on cyclosporine modified 100 mg 1 p.o. daily 1. Continue this dosing 2. Dispense 90 of the cyclosporine modified capsules will be called into [facility] in [place] without refills. 3. Return to clinic in 3 months for repeat check. 4. May continue with CeraVe cream as an emollient and if she needs it, may use clobetasol cream foractive areas of eczema. 5. Return to clinic in 3 months for repeat check. We will repeat renal function studies after that next visit Acne vulgaris inflammatory controlled but with worsening comedonal involvement 1. Continue clindamycin 1% solution applying to face in the morning, but in the evening in its place use tretinoin 0.025% cream applying Q OHS for 2 weeks then once nightly thereafter dispense 20 g with 3 refills. CC: Saira Linares APRN documented in this encounter Plan of Treatment Not on file documented as of this encounter Visit Diagnoses Diagnosis Eczema, unspecified type Acne vulgaris Other acne documented in this encounter Care Teams Talent Acquisition Program Manager Relationship Specialty Start Date End Date Saira Linares APRN [address] [place] [address] PCP - General Family Medicine 06/01/17 12/13/20 documented as of this encounter
--- OUTSIDE RECORDS SUMMARY | 2024-05-20 00:40 | XMS_ITS | Encounter Summary ---
Author Organization [facility] Address [facility] [place] [address] Care Team Providers Care Flexographic Printing Press Operator Name Role Phone Kaylynn Tristan APRN Primary Care Provider [phone] Encounter Details Date Type Department Care Team (Late st Contact Info) Description 01/25/2021 Refill Dermatology at [address] [place] [phone] Bianca Schulz, FINISHING LAB TECHNICIAN Social History Tobacco Use Types Packs/Day Years [...] on filedocumented in this encounter Care Teams Flexographic Printing Press Operator Relationship Specialty Start Date End Date Kaylynn Tristan APRN [address] [place] [address] PCP - General Family Medicine 12/14/20 documented as of this encounter
--- OUTSIDE RECORDS SUMMARY | 2024-05-20 00:40 | XMS_ITS | Encounter Summary ---
Author Organization [facility] Address [facility] [place] [address] Care Team Providers Care Medical Records Technician Name Role Phone Saira Linares APRN Primary Care Provider + Encounter Details Date Type Department Care Team (Late st Contact Info) Description 08/18/2017 Refill Dermatology at [address] [place] [address] Bianca Schulz, TROLLEY CLEANER Social History Tobacco Use Types Packs/Day Years [...] on filedocumented in this encounter Care Teams Medical Records Technician Relationship Specialty Start Date End Date Saira Linares APRN [address] [place] [address] PCP - General Family Medicine 06/01/17 12/13/20 documented as of this encounter
--- OUTSIDE RECORDS SUMMARY | 2024-05-20 00:40 | XMS_ITS | Encounter Summary ---
Author Organization [facility] Address [facility] [place] [address] Care Team Providers Care Second Butler Name Role Phone Abdi Ro MD Primary Care Provider [phone] Reason for Visit * Reason Comments Eczema Encounter Details Date Type Department Care Team (Late st Contact Info) Description 06/02/2013 1:00 PM EDT Office Visit Dermatology [address] [place] [address] [address] [place] [address] Reece Pacheco MD [address] [facility] [address] [place] [address] Eczematous dermatitis (Primary Dx) Social History Tobacco Use Types Packs/Day Years Used Date Smoking Tobacco: Never Sex and Gender Information Value Date Recorded Sex Assigned at Not on file Gender Identity Not on file Sexual Orientation Not on file documented as of this encounter Progress Notes * Reece Pacheco MD - 06/02/2013 1:15 PM EDT Problem is followup eczema. Delmy follows up today with her grandmother, Gabby. She has had a rough summer. She has had a number of flares. They called my office when they were on vacation in [facility] visiting a [place] because of a significant flare. I called in refills of her prednisone, which she is now into the third day of and will be taking for three weeks. Already things are improving. Physical examination reveals a pleasant 12-year-old who has healing plaques of eczema on the lower forearms, popliteal fossa, also patches on her forearms and on the back of her heels. She had a couple of papules on her abdomen. There was postinflammatory hypopigmentation at the sites of involvement. Assessment and Plan: Eczematous dermatitis in an atopic, improving on prednisone. a. Continue prednisone course and then DC. b. Patient may have developed tachyphylaxis to desoximetasone that she has been using now actually on a four-year basis that she has been using on a p.r.n. basis. We will DC that and instead begin using fluocinonide ointment. Apply this on a b.i.d. basis p.r.n. to affected areas. Would recommend that she use it now to clear up remaining cutaneous lesions. c. May continue to use 2.5% hydrocortisone cream for face and eyelid involvement. d. Continue using CeraVe cream as an emollient. e. Grandmother, Gabby, does have a pool in which Delmy swims, and Gabby does use chlorine for the pool water. She is looking into a saltwater system, and I would encourage that for Delmy's skin. Recommend that I see her back again in another two months for repeat check. COPY: Abdi Ro M.D. documented in this encounter Plan of Treatment Not on file documented as of this encounter Visit Diagnoses Diagnosis Eczematous dermatitis- Primary Contact dermatitis and other eczema, due to unspecified cause documented in this encounter Care Teams Second Butler Relationship Specialty Start Date End Date Abdi Ro MD [address] [place] [address] PCP - General 09/03/10 05/31/17 documented as of this encounter
--- OUTSIDE RECORDS SUMMARY | 2024-05-20 00:40 | XMS_ITS | Encounter Summary ---
Author Organization [facility] Address [address] [place] [address] Care Team Providers Care Structural Steel Erection Supervisor Name Role Phone Saira Jeffers [facility] Primary Care Provider + Encounter Details Date Type Department Care Team (Late st Contact Info) Description 10/26/2023 Lab Requisition [facility] Pathology & Laboratory Medicine - [address] [address] Outr Resulting Lab, Provider Social History Tobacco [...] Procedure Name Priority Date/Time Associated Diagnosis Comments RUBELLA IGG ANTIBODY Routine 10/26/2023 14:30 EST VARICELLA IGG ANTIBODY Routine 10/26/2023 14:30 EST documented in this encounter Results * VARICELLA IGG ANTIBODY (10/26/2023 14:30 EST) Varicella IgG Ab Negative See Note 10/27/2023 10:39 EST [facility] Comment:Absence of detectabl e Varicella Zoster virus IgG antibodies. A negative result generally indicates no detectable antibody, but does not rule out acute infection. If VZV exposure is suspected, a second sample should be collected and tested no less than one or two weeks later. Blood VENOUS BLOOD / Unknown 10/26/2023 14:30 EST 10/26/2023 21:31 EST Provider Outr Resulting Lab IMMUNOLOGY A ND SEROLOGY ORDERABLES Performing Organization Address [facility] Co de Phone Number [facility] [address] [place] [address] * RUBELLA IGG ANTIBODY (10/26/2023 14:30 EST) Rubella IgG Ab Positive See Note 10/27/2023 10:40 EST [facility] Comment:Positive for IgG ant ibodies to Rubella virus. Blood VENOUS BLOOD / Unknown 10/26/2023 14:30 EST 10/26/2023 21:31 EST Provider Outr Resulting Lab CHEMISTRY & BLOOD GAS ORDERABLES Performing Organization Address [facility] Co de Phone Number [facility] [address] [place] [address] documented in this encounter Visit Diagnoses Not on filedocumented in this encounter Care Teams Structural Steel Erection Supervisor Relationship Specialty Start Date End Date Saira Jeffers, INFORMATICS COORDINATOR-DICK PCP - General 05/04/17 documented as of this encounter
--- OUTSIDE RECORDS SUMMARY | 2024-05-20 00:40 | XMS_ITS | Encounter Summary ---
Author Organization [facility] Address [facility] [place] [address] Care Team Providers Care Store Operations Manager Name Role Phone Saira Linares APRN Primary Care Provider + Encounter Details Date Type Department Care Team (Late st Contact Info) Description 06/01/2017 Refill Dermatology at [address] [place] [address] Bianca Schulz, STAPLE LASTER Social History Tobacco Use Types Packs/Day Years [...] on filedocumented in this encounter Care Teams Store Operations Manager Relationship Specialty Start Date End Date Saira Linares APRN [address] [place] [address] PCP - General Family Medicine 06/01/17 12/13/20 documented as of this encounter
--- OUTSIDE RECORDS SUMMARY | 2024-05-20 00:40 | XMS_ITS | Encounter Summary ---
Author Organization [facility] Address [facility] [place] [address] Care Team Providers Care Commercial Roofer Name Role Phone Abdi Ro MD Primary Care Provider [phone] Reason for Visit * Reason Comments Follow-up Encounter Details Date Type Department Care Team (Late st Contact Info) Description 08/08/2013 4:05 PM EDT Office Visit Dermatology at [place] [address] [facility] [place] [address] Reece Pacheco MD [address] [facility] [place] [address] Eczematous dermatitis (Primary Dx) Social History Tobacco Use Types Packs/Day Years Used Date Smoking Tobacco: Never Sex and Gender Information Value Date Recorded Sex Assigned at Not on file Gender Identity Not on file Sexual Orientation Not on file documented as of this encounter Progress Notes * Reece Pacheco MD - 08/08/2013 4:37 PM EDT Problem: Followup of eczema. Delmy follows up today for a two month check. She is here with her grandmother, Gabby. She has been doing reasonably well, but has intermittent flares. Because she does not like the fluocinonide ointment, she has not been using that much, but has been relying instead on 2.5% hydrocortisone cream. She did have a flare in [facility] earlier this summer, then a course of prednisone was called in that really had straightened things out. Physical examination reveals patches of eczematous dermatitis on her antecubital fossa, on the wrists, and on her posterior ankles. She has no facial involvement today. Assessment and Plan: 1. Eczematous dermatitis and an atopic. a. Continue fluocinonide 0.01%, but switch from ointment to cream, 60 grams dispensed with five refills. Recommend that she use this on a b.i.d. basis to affected areas until clear. b. Continue using CeraVe cream as an emollient at least once a day. c. Continue using 2.5% hydrocortisone cream for face and eyelid involvement b.i.d. p.r.n. d. Patient in the past has taken loratadine per Dr. Ro and was taking 5 mg once a day. Recommend that she go back on this to see if will not help decrease her itching. Today, she was given #30 of the 5 mg loratadine with three refills. Return to clinic in two months for repeat check. COPY: Abdi Ro M.D. documented in this encounter Plan of Treatment Not on file documented as of this encounter Visit Diagnoses Diagnosis Eczematous dermatitis- Primary Contact dermatitis and other eczema, due to unspecified cause documented in this encounter Care Teams Commercial Roofer Relationship Specialty Start Date End Date Abdi Ro MD [address] [place] [address] PCP - General 09/03/10 05/31/17 documented as of this encounter
--- OUTSIDE RECORDS SUMMARY | 2024-05-20 00:40 | XMS_ITS | Encounter Summary ---
Author Organization [facility] Address [facility] [place] [address] Care Team Providers Care Director Talent Name Role Phone Saira Linares APRN Primary Care Provider + Reason for Visit * Reason Comments Follow-up Acne Encounter Details Date Type Department Care Team (Late st Contact Info) Description 08/18/2017 4:15 PM EST Office Visit Dermatology at [address] [place] [address] Reece Pacheco MD [address] [facility] [place] [address] Eczema, unspecified type Social History Tobacco Use Types Packs/Day Years Used Date Smoking Tobacco: Never Smokeless Tobacco: Never Sex and Gender Information Value Date Recorded Sex Assigned at Not on file Gender Identity Not on file Sexual Orientation Not on file documented as of this encounter Progress Notes * Reece Pacheco MD - 08/18/2017 4:15 PM EST PROBLEM: 1. Follow up acne vulgaris. 2. Follow up eczematous dermatitis. Delmy follows up today by herself. She has been doing well. Her acne however is a problem. Despite minocycline 100 mg 1 p.o. b.i.d. she still has moderate inflammatory acne vulgaris of the cheeks. Some of these are borderline scarring and are leaving some icepick jurado on her lateral cheeks. This does not involve her back or shoulders or chest. Her eczema is very well controlled with modified cyclosporin, taking one of these b.i.d. Blood pressure today is 98/72. Physical examination reveals a pleasant 17-year-old girl who has [id number] inflammatory acne vulgaris of the bilateral cheeks, a little bit on the lateral cheeks as well, and forehead. She has no significant eczematous dermatitis on the antecubital fossa or behind her knees. A/P: 1. Eczematous dermatitis, atopic, well controlled. a. Attempt to modify cyclosporin from 100 mg p.o. b.i.d. to just 1 p.o. daily. She just picked up #60 so will have enough now for 2 months at this dosing. b. We discussed in the past the option of Dupixent and I think that would be another options for her. c. Continue clobetasol cream applying this b.i.d. p.r.n. 2. Acne vulgaris. a. Discontinue minocycline. b. Begin instead Bactrim double-strength 1 p.o. b.i.d. Patient has no known sulfa allergy. Dispensed #60 with 1 refill. Return to clinic in 6 weeks for repeat check. CC: Saira Linares APRN documented in this encounter Plan of Treatment Not on file documented as of this encounter Visit Diagnoses Diagnosis Eczema, unspecified type documented in this encounter Care Teams Director Talent Relationship Specialty Start Date End Date Saira Linares APRN [address] [place] [id number] PCP - General Family Medicine 06/01/17 12/13/20 documented as of this encounter
--- OUTSIDE RECORDS SUMMARY | 2024-05-20 00:40 | XMS_ITS | Encounter Summary ---
Author Organization [facility] Address [facility] [place] [address] Care Team Providers Care Pedodontist Name Role Phone Saira Linares APRN Primary Care Provider + Reason for Visit * Reason Comments Follow-up Encounter Details Date Type Department Care Team (Late st Contact Info) Description 05/21/2018 8:30 AM EDT Office Visit Dermatology at [address] [place] [address] Reece Pacheco MD [address] [facility] [place] [address] Eczema, unspecified type; Acne vulgaris Social History Tobacco Use Types Packs/Day Years Used Date Smoking Tobacco: Never Smokeless Tobacco: Never Sex and Gender Information Value Date Recorded Sex Assigned at Not on file Gender Identity Not on file Sexual Orientation Not on file documented as of this encounter Progress Notes * Reece Pacheco MD - 05/21/2018 8:30 AM EDT Problem: 1. Follow-up acne vulgaris on Bactrim 2. 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 I tapered her down from twice daily cyclosporineto daily but she did not feel like she was doing well with that so she increased back to twice daily dosing and course out of medication. She been out of it for 2 weeks. Her r acne continues to be under good control on twice daily Bactrim. She states however (?) That she has been taking minocycline. Physical examination reveals a pleasant 17-year-old whose acne today is quiescent. She e has small eczematous patches one on either dorsal hand and one on the right anterior ankle. Otherwise her skinis clear. Things really look good. Off of cyclosporine today her blood pressure is 104/70 Assessment plan: Eczematous dermatitis in an atopic, out of cyclosporine times 2 weeks 1. Encouraged patient not this change dosing without discussing with me first 2. Recommend that we stick with just 1 a day of cyclosporine today she is given #90 for 3 supply ofthe 100 mg modifyed cyclosporine. Take 1 p.o. daily this will be [facility] [place] 2. Stressed importance of CeraVe cream as an emollient and the use of her clobetasol cream for active eczematous dermatitis. Remember to use the creams using regularly not just intermittently as she is currently doing. Topical therapy is very important adjunct for control of her eczema. 4. Discussed the fact that her eczema is likely doing better now than it will this winters are usually the worst for her. Return to clinic in 3 months for repeat check 5. Continue sensitive skin care precautions Acne vulgaris 1. DC oral antibiotics Bactrim 2. Begin clindamycin 1% solution apply to face on a twice daily basis. 60with with 5 refills. Return to clinic here in 3 months repeat check Cc: Lyndsey Linares APRN documented in this encounter Plan of Treatment Not on file documented as of this encounter Visit Diagnoses Diagnosis Eczema, unspecified type Acne vulgaris Other acne documented in this encounter Care Teams Pedodontist Relationship Specialty Start Date End Date Saira Linares APRN [address] [place] [address] PCP - General Family Medicine 06/01/17 12/13/20 documented as of this encounter
--- OUTSIDE RECORDS SUMMARY | 2024-05-20 00:40 | XMS_ITS | Encounter Summary ---
Author Organization [facility] Address [facility] [place] [address] Care Team Providers Care Store Shopper Name Role Phone Saira Linares APRN Primary Care Provider + Reason for Visit * Reason Comments Eczema Encounter Details Date Type Department Care Team (Late st Contact Info) Description 02/05/2018 8:30 AM EDT Office Visit Dermatology at [place] [address] [facility] [place] [address] Reece Pacheco MD [address] [facility] [place] [address] Eczema, unspecified type; Acne vulgaris Social History Tobacco Use Types Packs/Day Years Used Date Smoking Tobacco: Never Smokeless Tobacco: Never Sex and Gender Information Value Date Recorded Sex Assigned at Not on file Gender Identity Not on file Sexual Orientation Not on file documented as of this encounter Progress Notes * Reece Pacheco MD - 02/05/2018 8:30 AM EDT Problem: 1. Acne vulgaris 2. Follow-up atopic eczematous dermatitis. Delmy follows up today with her grandfather chris. She been doing well. The her acne and eczema under good control. Physical examination reveals a pleasant 17-year-old whose mild to moderate inflammatory acne vulgaris of the bilateral cheeks is actually under excellent control. She is a few erythematous macules present at's prior sites of involvement. She has mild erythema in the patchy fashion in the antecubital fossa and some areas over the dorsal hands but this is quite minimal. She has no active eczematousdermatitis. Her blood pressure today on cyclosporine is 112/72. Assessment plan: Eczematous dermatitis atopic on cyclosporine modified. 1. Recommend that we taper from twice daily dosing to daily dosing of her cyclosporine 100 mg modified will call in #90 for a 3 month supply to her [facility] in [place] return to clinic here in 3 months for repeat check Acne vulgaris 1. Continue Bactrim double strength 1 p.o. twice daily we will dispense #180 for a 3 month supply with 0 refills. Today we will check CBC BUN and creatinine to monitor both her Bactrim and her cyclosporine and we will call both these prescriptions into her [facility] in [place]. Cc: Saira Linares APRN documented in this encounter Plan of Treatment Not on file documented as of this encounter Visit Diagnoses Diagnosis Eczema, unspecified type Acne vulgaris Other acne documented in this encounter Care Teams Store Shopper Relationship Specialty Start Date End Date Saira Linares APRN [address] [place] [address] PCP - General Family Medicine 06/01/17 12/13/20 documented as of this encounter
--- OUTSIDE RECORDS SUMMARY | 2024-05-20 00:40 | XMS_ITS | Encounter Summary ---
Author Organization [facility] Address [facility] [place] [address] Care Team Providers Care Stain Dipper Name Role Phone Saira Linares APRN Primary Care Provider + Reason for Visit * Reason Comments Follow-up Skin Check Encounter Details Date Type Department Care Team (Late st Contact Info) Description 07/04/2019 8:45 AM EDT Office Visit Dermatology at [address] [place] [address] Reece Pacheco MD [address] [facility] [place] [address] Eczema, unspecified type; Acne vulgaris Social History Tobacco Use Types Packs/Day Years Used Date Smoking Tobacco: Never Smokeless Tobacco: Never Sex and Gender Information Value Date Recorded Sex Assigned at Not on file Gender Identity Not on file Sexual Orientation Not on file documented as of this encounter Progress Notes * Reece Pacheco MD - 07/04/2019 8:45 AM EDT Problem: 1. ??Follow-up acne vulgaris ??using topical clindamycin 1% solution twice daily 2. ??Follow-up atopic eczematous dermatitis off of cyclosporine 100 mg 1 p.o. bid modified since June 2018 Delmy follows up and is doing beautifully. Her eczema is almost nonexistent. She has one little dry patch on her right lateral ankle but is not itchy is quite minimal and she is not applying any emollients nor any clobetasol cream to that. She is not taking any antihistamines. Her acne is well controlled with twice daily applications and clindamycin 1% solution. Physical examination reveals a pleasant 18-year-old who has 2 small inflammatory superficial acne papules today on her upper lip and one on her glabella. Otherwise she is clear. Her skin is mildly dry but there is no evidence of any active eczematous dermatitis. She has no eczema in the popliteal fossae, antecubital fossae, nothing on her neck nor hands Assessment plan: Eczematous dermatitis in an atopic, quiescent, off of all therapies. 1. Patient is clobetasol cream to use at home if she needs it, and CeraVe cream 2. Continue to avoid fragranced soaps detergents etc. 3. Continue with sensitive skin care precautions 4. Encouraged evaluation therapy this winter if her skin becomes dry and itchy Acne vulgaris, inflammatory, controlled 1. Continue with clindamycin 1% solution applying twice daily to face. 2. Return to clinic in 6 months for recheck. 3. If doing well at that time may be able to recommend PRN follow-ups. CC: Saira Linares APRN documented in this encounter Plan of Treatment Not on file documented as of this encounter Visit Diagnoses Diagnosis Eczema, unspecified type Acne vulgaris Other acne documented in this encounter Care Teams Stain Dipper Relationship Specialty Start Date End Date Saira Linares APRN [address] [place] [address] PCP - General Family Medicine 06/01/17 12/13/20 documented as of this encounter
--- OUTSIDE RECORDS SUMMARY | 2024-05-20 00:40 | XMS_ITS | Encounter Summary ---
Author Organization [facility] Address [address] [place] [address] Care Team Providers Care Paste Worker Name Role Phone Saira Jeffers [facility] Primary Care Provider + Encounter Details Date Type Department Care Team (Late st Contact Info) Description 12/02/2022 Lab Requisition [facility] Pathology & Laboratory Medicine - [address] [address] Sangita Licona, MARINE INSULATOR [address] [place] [address] Encounter for other general examination Social History Tobacco Use Types Packs/Day Years Used Date Smoking Tobacco: Never Assessed Sex and Gender Information Value Date Recorded Sex Assigned at Not on file Gender Identity Not on file Sexual Orientation Not on file documented as of this encounter Plan of Treatment Not on file documented as of this encounter Procedures Procedure Name Priority Date/Time Associated Diagnosis Comments PAP TEST Today 12/01/2022 13:20 EST Encounter for other general examination documented in this encounter Results * PAP TEST (12/01/2022 13:20 EST) Specimens A. Cervix and/or Endocervix , ThinPrep Imaging System with Manual Evaluation 12/15/2022 10:36 [facility] Specimen Adequacy Satisfactory for Evaluation - transformation zone component present 12/15/2022 10:36 [facility] General Categorization Negative for intraepithelial lesion or malignancy 12/15/2022 10:36 [facility] Attestation . 12/15/2022 10:36 [facility] at 1036 Clinical History SEE BELOW 12/16/19 10:36 EST [facility] Performing Lab [facility] 12/15/2022 10:36 EST [facility] Scanned Images 12/15/2022 10:36 EST [facility] Papanicolaou smear specimen (specimen) CERVIX UTERI STRUCTURE / Unknown 12/01/2022 13:20 EST 12/02/2022 13:39 EST Sangita Licona MARINE INSULATOR PATHOLOGY ORDERAB LES [facility] [address] [place] [address] documented in this encounter Visit Diagnoses Diagnosis Encounter for other general examination documented in this encounter Care Teams Paste Worker Relationship Specialty Start Date End Date Saira Jeffers FNP-DICK PCP - General 05/04/17 documented as of this encounter
--- OUTSIDE RECORDS SUMMARY | 2024-05-20 00:40 | XMS_ITS | Encounter Summary ---
Author Organization [facility] Address [address] [place] [address] Care Team Providers Care Custom Leather Products Maker Name Role Phone Saira Jeffers [facility] Primary Care Provider + Encounter Details Date Type Department Care Team (Late st Contact Info) Description 10/26/2023 Lab Requisition [facility] Pathology & Laboratory Medicine - [address] [address] Outr Resulting Lab, Provider Social History Tobacco [...] Comments CHLAMYDIA/N. GONORRHOEAE AMPLIFIED NUCLEIC ACID Routine 10/26/2023 14:00 EST documented in this encounter Results * CHLAMYDIA/N. GONORRHOEAE AMPLIFIED RNA (10/26/2023 14:00 EST) Neisseria gonorrhoeae Result Negative Negative 10/28/2023 14:34 EST [facility] Chlamydia trachomatis Result Negative Negative 10/28/2023 14:34 EST [facility] Swab VAGINAL STRUCTURE / Unknown 10/26/2023 14:00 EST 10/27/2023 10:03 EST Provider Outr Resulting Lab MICROBIOLOGY - GENERAL ORDERABLES [facility] [address] [place] [address] documented in this encounter Visit Diagnoses Not on filedocumented in this encounter Care Teams Custom Leather Products Maker Relationship Specialty Start Date End Date Saira Jeffers, RETAIL LEASING AGENT- PCP - General 05/04/17 documented as of this encounter
--- OUTSIDE RECORDS SUMMARY | 2024-05-20 00:41 | XMS_ITS | Encounter Summary ---
Author Organization [facility] Address [address] [place] [address] Care Team Providers Care Quill Cleaner Name Role Phone Saira Jeffers [facility] Primary Care Provider + Encounter Details Date Type Department Care Team (Late st Contact Info) Description 07/02/2022 Lab Requisition [facility] Pathology & Laboratory Medicine - [address] [address] Outr Resulting Lab, Provider Social History Tobacco [...] Comments CHLAMYDIA/N. GONORRHOEAE AMPLIFIED NUCLEIC ACID Routine 07/02/2022 12:56 EDT documented in this encounter Results * CHLAMYDIA/N. GONORRHOEAE AMPLIFIED RNA (07/02/2022 12:56 EDT) Neisseria gonorrhoeae Result Negative Negative 07/03/2022 14:36 EDT [facility] Chlamydia trachomatis Result Negative Negative 07/03/2022 14:36 EDT [facility] Urine URINE / Unknown 07/02/2022 1 2:56 EDT 07/02/2022 22:14 EDT Narrative [facility] - 07/03/2022 14:36 EDT A first catch urine specimen is acceptable for detection of Gonorrhea and Chlamydia, but might detect up to 10% fewer infections when compared with vaginal and endocervical swab samples. Provider Outr Resulting Lab MICROBIOLOGY - GENERAL ORDERABLES [facility] [address] [place] [address] documented in this encounter Visit Diagnoses Not on filedocumented in this encounter Care Teams Quill Cleaner Relationship Specialty Start Date End Date Saira Jeffers FNP- PCP - General 05/04/17 documented as of this encounter
--- OUTSIDE RECORDS SUMMARY | 2024-05-20 00:41 | XMS_ITS | Data Portability ---
Author Organization [place] [facility], [facility] Address [place] [address] Assessment Encounter Date Assessment Date Assessment LastModified by Organization Details LastModified Time 11/06/2023 11/06/2023 Delmy is here today for annual exam. She is approximately 12 weeks . She is feeling well. She declines COVID-19 vaccination. Influenza vaccination was administered today. Delmy is taking a vitamin and not using any substances. She is established with OB. She feels as though her mental health is doing well. She is managing constipation sufficiently at this time. We agree to FU approximately 3 months after her due date. [email or web address] Not available 11/09/2023 10:03:42 Plan of Treatment Reminders Order Date Submit Date Provider Last Modified By Organization Details Last Modified Time Details Appointments Office Visit 30 2023 10:00A M TYREL TRISTAN, Not available Not available Not available Lab None recorded . Referral None recorded . Procedures None recorded . Surgeries None recorded . Imaging None recorded . Medication Orders None recorded . Patient TargetsNo targets recorded. Patient InstructionsNo instructions recorded. Reason for Referral None Reported. Results Created Date Observation Date Name Description Value Unit Range Abnormal Flag LastModifiedBy Organization Detail LastModifiedTime 10/26/19 24 10/26/2023 PANOR AMA KIT panorama kit Sent via Fed Ex Not Available [address] [place], [address] 10/26/2023 14:40:23 10/26/19 24 10/26/2023 COMPL ETE BLOOD COUNT W/DIF F WBC 9.36 10_3/ uL 4.4-10 .8 normal Not Available [address] [place], [address] 10/26/2023 14:47:30 10/26/19 24 10/26/2023 COMPL ETE BLOOD COUNT W/DIF F RBC 4.47 10_6/ uL 3.93-5 .22 normal Not Available [address] [place], [address] 10/26/2023 14:47:30 10/26/19 24 10/26/2023 COMPL ETE BLOOD COUNT W/DIF F HGB 13.0 g/dL 11.2-1 5.7 normal Not Available [address] [place], [address] 10/26/2023 14:47:30 10/26/19 24 10/26/2023 COMPL ETE BLOOD COUNT W/DIF F HCT 38.5 % 36.0-4 6.0 normal Not Available [address] [place], [address] 10/26/2023 14:47:30 10/26/19 24 10/26/2023 COMPL ETE BLOOD COUNT W/DIF F MCV 86 fL 80-95 normal Not Available [address] [place], [address] 10/26/2023 14:47:30 10/26/19 24 10/26/2023 COMPL ETE BLOOD COUNT W/DIF F MCH 29.1 pg 27.0-3 3.0 normal Not Available [address] [place], [address] 10/26/2023 14:47:30 10/26/19 24 10/26/2023 COMPL ETE BLOOD COUNT W/DIF F MCHC 33.8 % 32.0-3 6.0 normal Not Available [address] [place], [address] 10/26/2023 14:47:30 10/26/19 24 10/26/2023 COMPL ETE BLOOD COUNT W/DIF F RDW 12.5 % 11.7-1 4.6 normal Not Available [address] [place], [address] 10/26/2023 14:47:30 10/26/19 24 10/26/2023 COMPL ETE BLOOD COUNT W/DIF F platelet count 258 10_3/ uL 130-40 0 normal Not Available [address] [place], [address] 10/26/2023 14:47:30 10/26/19 24 10/26/2023 COMPL ETE BLOOD COUNT W/DIF F MPV 9.7 fL 8.0-11 .0 normal Not Available [address] [place], [address] 10/26/2023 14:47:30 10/26/19 24 10/26/2023 COMPL ETE BLOOD COUNT W/DIF F neutrophils % 75.4 Not Available [address] [place], [address] 10/26/2023 14:47:30 10/26/19 24 10/26/2023 COMPL ETE BLOOD COUNT W/DIF F lymphocytes % 18.3 Not Available [address] [place], [address] 10/26/2023 14:47:30 10/26/19 24 10/26/2023 COMPL ETE BLOOD COUNT W/DIF F monocytes % 4.7 Not Available [address] [place], [address] 10/26/2023 14:47:30 10/26/19 24 10/26/2023 COMPL ETE BLOOD COUNT W/DIF F eosinophils % 0.9 Not Available [address] [place], [address] 10/26/2023 14:47:30 10/26/19 24 10/26/2023 COMPL ETE BLOOD COUNT W/DIF F basophils % 0.3 Not Available [address] [place], [address] 10/26/2023 14:47:30 10/26/19 24 10/26/2023 COMPL ETE BLOOD COUNT W/DIF F immature grans % 0.4 Not Available [address] [place], [address] 10/26/2023 14:47:30 10/26/19 24 10/26/2023 COMPL ETE BLOOD COUNT W/DIF F nucleated RBC 0.0 % 0.0-0. 3 normal Not Available [address] [place], [address] 10/26/2023 14:47:30 10/26/19 24 10/26/2023 COMPL ETE BLOOD COUNT W/DIF F absolute neutrophil count 7.06 10_3/ uL 1.2-6. 7 high Not Available [address] [place], [address] 10/26/2023 14:47:30 10/26/19 24 10/26/2023 COMPL ETE BLOOD COUNT W/DIF F absolute lymphocyte count 1.71 10_3/ uL 1.2-3. 4 normal Not Available [address] [place], [address] 10/26/2023 14:47:30 10/26/19 24 10/26/2023 COMPL ETE BLOOD COUNT W/DIF F absolute monocyte count 0.44 10_3/ uL 0.1-0. 8 normal Not Available [address] [place], [address] 10/26/2023 14:47:30 10/26/19 24 10/26/2023 COMPL ETE BLOOD COUNT W/DIF F absolute eosinophil count 0.08 10_3/ uL 0.0-0. 7 normal Not Available [address] [place], [address] 10/26/2023 14:47:30 10/26/19 24 10/26/2023 COMPL ETE BLOOD COUNT W/DIF F absolute basophil count 0.03 10_3/ uL 0.0-0. 2 normal Not Available [address] [place], [address] 10/26/2023 14:47:30 10/26/19 24 10/26/2023 TSH (W/RE F FT4) TSH (w/ref FT4) 1.29 uIU/m L 0.36-3 .74 normal Not Available [address] [place], [address] 10/26/2023 15:41:36 10/26/19 24 10/26/2023 URINE DRUG SCREE N ([facility] ) methadone Negati ve negati ve Not Available [address] [place], [address] 10/26/2023 15:58:39 10/26/19 24 10/26/2023 URINE DRUG SCREE N ([facility] ) benzodiazepi nas Negati ve negati ve Not Available [address] [place], [address] 10/26/2023 15:58:39 10/26/19 24 10/26/2023 URINE DRUG SCREE N ([facility] ) cocaine Negati ve negati ve Not Available [address] [place], [address] 10/26/2023 15:58:39 10/26/19 24 10/26/2023 URINE DRUG SCREE N ([facility] ) amphetamines Negati ve negati ve Not Available [address] [place], [address] 10/26/2023 15:58:39 10/26/19 24 10/26/2023 URINE DRUG SCREE N ([facility] ) tetrahydroca nnabinol Negati ve negati ve Not Available [address] [place], [address] 10/26/2023 15:58:39 10/26/19 24 10/26/2023 URINE DRUG SCREE N ([facility] ) opiates Negati ve negati ve Not Available [address] [place], [address] 10/26/2023 15:58:39 10/26/19 24 10/26/2023 URINE DRUG SCREE N ([facility] ) barbiturates Negati ve negati ve Not Available [address] [place], [address] 10/26/2023 15:58:39 10/26/19 24 10/26/2023 URINE DRUG SCREE N ([facility] ) tricyclic antidepressa nts Negati ve negati ve Not Available [address] [place], [address] 10/26/2023 15:58:39 10/26/19 24 10/26/2023 HEPAT ITIS C AB W RFLX HCV PCR hepatitis C Ab W rflx HCV PCR Negati ve negati ve Not Available [address] [place], [address] 10/27/2023 08:35:26 10/26/19 24 10/26/2023 HEPAT ITIS B SURFA CE AG hepatitis B surface Ag Negati ve negati ve Not Available [address] [place], [address] 10/27/2023 08:35:26 10/26/19 24 10/27/2023 HIV-1 /2 AG AB SCREE N HIV-1/2 Ag Ab screen Negati ve negati ve Not Available [address] [place], [address] 10/27/2023 12:35:53 10/26/19 24 10/27/2023 URINE CULTU RE urine culture Not Available [address] [place], [address] 10/27/2023 12:36:46 10/26/19 24 10/27/2023 URINE CULTU RE urine culture colon ies/m L Not Available [address] [place], [address] 10/27/2023 12:36:46 10/26/19 24 10/28/2023 URINE CULTU RE urine culture Not Available [address] [place], [address] 10/28/2023 08:32:40 10/26/19 24 10/28/2023 URINE CULTU RE urine culture colon ies/m L Not Available [address] [place], [address] 10/28/2023 08:32:40 10/26/19 24 10/28/2023 CHLAM YDIA/ GC AMPLI FIED RNA chlamydia result Negati ve negati ve Not Available [address] [place], [address] 10/28/2023 15:18:39 10/26/19 24 10/28/2023 CHLAM YDIA/ GC AMPLI FIED RNA GC result Negati ve negati ve Not Available [address] [place], [address] 10/28/2023 15:18:39 10/26/19 24 10/27/2023 RUBEL LA IGG AB (UVM) rubella IgG Ab (uvm) Positi ve see note Not Available [address] [place], [address] 10/29/2023 12:26:29 10/26/19 24 10/27/2023 VARIC AFIA IGG ANTIB NANCY varicella IgG antibody Negati ve see note Not Available [address] [place], [address] 10/29/2023 12:26:29 10/26/19 24 10/28/2023 SYPHI LIS IGG W/REF MARYAN syphilis IgG w/reflex Nonrea ctive nonrea ctive Not Available [address] [place], [address] 10/29/2023 12:26:30 10/26/19 24 10/30/2023 BUPRE NORPH INE METAB OLITE , U buprenorphin e Negati ve NG/mL cutoff : 5.0 Not Available [address] [place], [address] 10/30/2023 09:21:26 10/26/19 24 10/30/2023 BUPRE NORPH INE METAB OLITE , U norbuprenorp henrik Negati ve NG/mL cutoff : 2.5 Not Available [address] [place], [address] 10/30/2023 09:21:26 10/26/19 24 11/13/2023 CYSTI C FIBRO SIS MUTAT ION PANEL result summary NEGATI VE Not Available [address] [place], [address] 11/13/2023 15:51:21 10/26/19 24 11/13/2023 CYSTI C FIBRO SIS MUTAT ION PANEL result SEE BELOW Not Available [address] [place], [address] 11/13/2023 15:51:21 10/26/19 24 11/13/2023 CYSTI C FIBRO SIS MUTAT ION PANEL interpretati on See Commen t Not Available [address] [place], [address] 11/13/2023 15:51:21 10/26/19 24 11/13/2023 CYSTI C FIBRO SIS MUTAT ION PANEL method See Commen t Not Available [address] [place], [address] 11/13/2023 15:51:21 10/26/19 24 11/13/2023 CYSTI C FIBRO SIS MUTAT ION PANEL specimen WB Whole Blood Not Available [address] [place], [address] 11/13/2023 15:51:21 10/26/19 24 11/13/2023 CYSTI C FIBRO SIS MUTAT ION PANEL released by SEE BELOW Not Available [address] [place], [address] 11/13/2023 15:51:21 01/04/20 24 01/04/2024 VAGIN AL PATHO GEN SCREE N vaginal pathogen screen Not Available [address] [place], [address] 01/04/2024 14:44:40 01/30/20 24 01/30/2024 URINA LYSIS color Yellow yellow Not Available [address] [place], [address] 01/30/2024 04:26:06 01/30/20 24 01/30/2024 URINA LYSIS clarity Clear clear Not Available [address] [place], [address] 01/30/2024 04:26:06 01/30/20 24 01/30/2024 URINA LYSIS specific gravity 1.010 1.005- 1.025 normal Not Available [address] [place], [address] 01/30/2024 04:26:06 01/30/20 24 01/30/2024 URINA LYSIS pH 7.0 5-8 normal Not Available [address] [place], [address] 01/30/2024 04:26:06 01/30/20 24 01/30/2024 URINA LYSIS leukocyte esterase Negati ve negati ve Not Available [address] [place], [address] 01/30/2024 04:26:06 01/30/20 24 01/30/2024 URINA LYSIS nitrite Negati ve negati ve Not Available [address] [place], [address] 01/30/2024 04:26:06 01/30/20 24 01/30/2024 URINA LYSIS protein Negati ve mg/dL neg-tr [place] Not Available [address] [place], [address] 01/30/2024 04:26:06 01/30/20 24 01/30/2024 URINA LYSIS glucose Negati ve mg/dL negati ve Not Available [address] [place], [address] 01/30/2024 04:26:06 01/30/20 24 01/30/2024 URINA LYSIS ketones Negati ve mg/dL negati ve Not Available [address] [place], [address] 01/30/2024 04:26:06 01/30/2001/30/2024 URINA LYSIS urobilinogen 0.2 mg/dL up to 0.2 Not Available [address] [place], [address] 01/30/2024 04:26:06 01/30/20 24 01/30/2024 URINA LYSIS bilirubin Negati ve negati ve Not Available [address] [place], [address] 01/30/2024 04:26:06 01/30/20 24 01/30/2024 URINA LYSIS blood Large negati ve abnormal Not Available [address] [place], [address] 01/30/2024 04:26:06 01/30/20 24 01/30/2024 MICRO SCOPI C FINDI NGS WBC Negati ve hpf 0-5 Not Available [address] [place], [address] 01/30/2024 04:26:08 04/20/20 24 01/30/2024 MICRO SCOPI C FINDI NGS RBC 10-20 hpf 0-2 abnormal Not Available Jethro ramirez [address] [place], [address] 01/30/2024 04:26:08 01/30/20 24 01/30/2024 MICRO SCOPI C FINDI NGS epithelial cells Few hpf negati ve Not Available [address] [place], [address] 01/30/2024 04:26:08 01/30/20 24 01/30/2024 MICRO SCOPI C FINDI NGS bacteria Rare hpf negati ve Not Available [address] [place], [address] 01/30/2024 04:26:08 01/30/20 24 01/30/2024 MICRO SCOPI C FINDI NGS crystals Negati ve hpf negati ve Not Available [address] [place], [address] 01/30/2024 04:26:08 01/30/20 24 01/30/2024 MICRO SCOPI C FINDI NGS mucus Negati ve negati ve Not Available [address] [place], [address] 01/30/2024 04:26:08 01/30/20 24 01/30/2024 MICRO SCOPI C FINDI NGS casts Negati ve lpf negati ve Not Available [address] [place], [address] 01/30/2024 04:26:08 01/30/20 24 01/30/2024 MICRO SCOPI C FINDI NGS C S indicated? No Not Available [address] [place], [address] 01/30/2024 04:26:08 01/30/20 24 01/30/2024 COMPL ETE BLOOD COUNT W/DIF F WBC 10.67 10_3/ uL 4.4-10 .8 normal Not Available [address] [place], [address] 01/30/2024 04:41:07 01/30/20 24 01/30/2024 COMPL ETE BLOOD COUNT W/DIF F RBC 3.75 10_6/ uL 3.93-5 .22 low Not Available [address] [place], [address] 01/30/2024 04:41:07 01/30/20 24 01/30/2024 COMPL ETE BLOOD COUNT W/DIF F HGB 11.4 g/dL 11.2-1 5.7 normal Not Available [address] [place], [address] 01/30/2024 04:41:07 01/30/20 24 01/30/2024 COMPL ETE BLOOD COUNT W/DIF F HCT 33.8 % 36.0-4 6.0 low Not Available [address] [place], [address] 01/30/2024 04:41:07 01/30/20 24 01/30/2024 COMPL ETE BLOOD COUNT W/DIF F MCV 90 fL 80-95 normal Not Available [address] [place], [address] 01/30/2024 04:41:07 01/30/20 24 01/30/2024 COMPL ETE BLOOD COUNT W/DIF F MCH 30.4 pg 27.0-3 3.0 normal Not Available [address] [place], [address] 01/30/2024 04:41:07 01/30/20 24 01/30/2024 COMPL ETE BLOOD COUNT W/DIF F MCHC 33.7 % 32.0-3 6.0 normal Not Available [address] [place], [address] 01/30/2024 04:41:07 01/30/20 24 01/30/2024 COMPL ETE BLOOD COUNT W/DIF F RDW 13.5 % 11.7-1 4.6 normal Not Available [address] [place], [address] 01/30/2024 04:41:07 01/30/20 24 01/30/2024 COMPL ETE BLOOD COUNT W/DIF F platelet count 190 10_3/ uL 130-40 0 normal Not Available [address] [place], [address] 01/30/2024 04:41:07 01/30/20 24 01/30/2024 COMPL ETE BLOOD COUNT W/DIF F MPV 9.5 fL 8.0-11 .0 normal Not Available [address] [place], [address] 01/30/2024 04:41:07 01/30/20 24 01/30/2024 COMPL ETE BLOOD COUNT W/DIF F neutrophils % 78.2 Not Available [address] [place], [address] 01/30/2024 04:41:07 01/30/20 24 01/30/2024 COMPL ETE BLOOD COUNT W/DIF F lymphocytes % 12.1 Not Available [address] [place], [address] 01/30/2024 04:41:07 01/30/20 24 01/30/2024 COMPL ETE BLOOD COUNT W/DIF F monocytes % 6.5 Not Available [address] [place], [address] 01/30/2024 04:41:07 01/30/20 24 01/30/2024 COMPL ETE BLOOD COUNT W/DIF F eosinophils % 0.8 Not Available [address] [place], [address] 01/30/2024 04:41:07 01/30/20 24 01/30/2024 COMPL ETE BLOOD COUNT W/DIF F basophils % 0.5 Not Available [address] [place], [address] 01/30/2024 04:41:07 01/30/20 24 01/30/2024 COMPL ETE BLOOD COUNT W/DIF F immature grans % 1.9 Not Available [address] [place], [address] 01/30/2024 04:41:07 01/30/20 24 01/30/2024 COMPL ETE BLOOD COUNT W/DIF F nucleated RBC 0.0 % 0.0-0. 3 normal Not Available [address] [place], [address] 01/30/2024 04:41:07 01/30/20 24 01/30/2024 COMPL ETE BLOOD COUNT W/DIF F absolute neutrophil count 8.35 10_3/ uL 1.2-6. 7 high Not Available [address] [place], [address] 01/30/2024 04:41:07 01/30/20 24 01/30/2024 COMPL ETE BLOOD COUNT W/DIF F absolute lymphocyte count 1.29 10_3/ uL 1.2-3. 4 normal Not Available [address] [place], [address] 01/30/2024 04:41:07 01/30/20 24 01/30/2024 COMPL ETE BLOOD COUNT W/DIF F absolute monocyte count 0.69 10_3/ uL 0.1-0. 8 normal Not Available [address] [place], [address] 01/30/2024 04:41:07 01/30/20 24 01/30/2024 COMPL ETE BLOOD COUNT W/DIF F absolute eosinophil count 0.09 10_3/ uL 0.0-0. 7 normal Not Available [address] [place], [address] 01/30/2024 04:41:07 01/30/20 24 01/30/2024 COMPL ETE BLOOD COUNT W/DIF F absolute basophil count 0.05 10_3/ uL 0.0-0. 2 normal Not Available [address] [place], [address] 01/30/2024 04:41:07 01/30/20 24 01/30/2024 BASIC METAB OLIC PANEL calcium 8.6 mg/dL 8.5-10 .1 normal Not Available [address] [place], [address] 01/30/2024 04:53:07 01/30/20 24 01/30/2024 BASIC METAB OLIC PANEL glucose 100 mg/dL 74-106 normal Not Available Jethro ramirez [address] [place], [address] 01/30/2024 04:53:07 01/30/20 24 01/30/2024 BASIC METAB OLIC PANEL BUN 8 mg/dL 7-18 normal Not Available Jethro ramirez [address] [place], [address] 01/30/2024 04:53:07 01/30/20 24 01/30/2024 BASIC METAB OLIC PANEL creatinine 0.5 mg/dL 0.55-1 .02 low Not Available [address] [place], [address] 01/30/2024 04:53:07 01/30/20 24 01/30/2024 BASIC METAB OLIC PANEL estimated GFR 135.91 mL/min /1.73m 2 Not Available [address] [place], [address] 01/30/2024 04:53:07 01/30/20 24 01/30/2024 BASIC METAB OLIC PANEL sodium 140 mmol/ L 136-14 5 normal Not Available [address] [place], [address] 01/30/2024 04:53:07 01/30/20 24 01/30/2024 BASIC METAB OLIC PANEL potassium 3.7 mmol/ L 3.5-5. 1 normal Not Available [address] [place], [address] 01/30/2024 04:53:07 01/30/20 24 01/30/2024 BASIC METAB OLIC PANEL chloride 105 mmol/ L 98-107 normal Not Available [address] [place], [address] 01/30/2024 04:53:07 01/30/20 24 01/30/2024 BASIC METAB OLIC PANEL CO2 23.3 mmol/ L 21.0-3 2.0 normal Not Available [address] [place], [address] 01/30/2024 04:53:07 01/30/20 24 01/30/2024 BASIC METAB OLIC PANEL anion gap 11.7 mmol/ L 3-11 high Not Available [address] [place], [address] 01/30/2024 04:53:07 02/03/20 24 02/04/2024 URINE CULTU RE urine culture Not Available [address] [place], [address] 02/04/2024 15:40:34 02/03/20 24 02/04/2024 URINE CULTU RE urine culture colon ies/m L Not Available [address] [place], [address] 02/04/2024 15:40:34 02/03/20 24 02/05/2024 URINE CULTU RE urine culture Not Available [address] [place], [address] 02/05/2024 07:56:11 02/03/20 24 02/05/2024 URINE CULTU RE urine culture colon ies/m L Not Available [address] [place], [address] 02/05/2024 07:56:11 02/23/20 24 02/23/2024 COMPL ETE BLOOD COUNT NO DIFF WBC 9.44 10_3/ uL 4.4-10 .8 normal Not Available [address] [place], [address] 02/23/2024 12:26:54 02/23/20 24 02/23/2024 COMPL ETE BLOOD COUNT NO DIFF RBC 3.56 10_6/ uL 3.93-5 .22 low Not Available [address] [place], [address] 02/23/2024 12:26:54 02/23/20 24 02/23/2024 COMPL ETE BLOOD COUNT NO DIFF HGB 10.8 g/dL 11.2-1 5.7 low Not Available [address] [place], [address] 02/23/2024 12:26:54 02/23/20 24 02/23/2024 COMPL ETE BLOOD COUNT NO DIFF HCT 32.4 % 36.0-4 6.0 low Not Available [address] [place], [address] 02/23/2024 12:26:54 02/23/20 24 02/23/2024 COMPL ETE BLOOD COUNT NO DIFF MCV 91 fL 80-95 normal Not Available [address] [place], [address] 02/23/2024 12:26:54 02/23/20 24 02/23/2024 COMPL ETE BLOOD COUNT NO DIFF MCH 30.3 pg 27.0-3 3.0 normal Not Available [address] [place], [address] 02/23/2024 12:26:54 02/23/20 24 02/23/2024 COMPL ETE BLOOD COUNT NO DIFF MCHC 33.3 % 32.0-3 6.0 normal Not Available [address] [place], [address] 02/23/2024 12:26:54 02/23/20 24 02/23/2024 COMPL ETE BLOOD COUNT NO DIFF RDW 13.4 % 11.7-1 4.6 normal Not Available [address] [place], [address] 02/23/2024 12:26:54 02/23/20 24 02/23/2024 COMPL ETE BLOOD COUNT NO DIFF platelet count 204 10_3/ uL 130-40 0 normal Not Available [address] [place], [address] 02/23/2024 12:26:54 02/23/20 24 02/23/2024 COMPL ETE BLOOD COUNT NO DIFF MPV 9.7 fL 8.0-11 .0 normal Not Available [address] [place], [address] 02/23/2024 12:26:54 02/23/20 24 02/23/2024 GLUCO SE,1 HR (GLUC KALINA) glucose,1 HR (glucola) 156 mg/dL 80-140 high Not Available [address] [place], [address] 02/23/2024 12:32:51 02/23/20 24 02/23/2024 ABS abs NEGATI VE Not Available [address] [place], [address] 02/23/2024 13:06:57 02/23/20 24 02/23/2024 ANTE PARTU M RHOGA M ante rhogam ISSUED 1521 Not Available [address] [place], [address] 02/23/2024 15:24:21 02/23/20 24 02/23/2024 ABS abs NEGATI VE Not Available [address] [place], [address] 02/23/2024 15:24:23 02/23/20 24 02/23/2024 ANTE PARTU M RHOGA M ante rhogam ISSUED 1343 Not Available [address] [place], [address] 02/23/2024 15:26:28 02/23/20 24 02/23/2024 ABS abs NEGATI VE Not Available [address] [place], [address] 02/23/2024 15:26:30 02/23/20 24 02/23/2024 ANTE PARTU M RHOGA M ante rhogam TRANSF USED 1343 Not Available [address] [place], [address] 02/23/2024 15:27:37 02/23/20 24 02/23/2024 ABS abs NEGATI VE Not Available [address] [place], [address] 02/23/2024 15:27:38 02/23/20 24 02/23/2024 ANTE PARTU M RHOGA M ante rhogam TRANSF USED 1343 Not Available [address] [place], [address] 02/23/2024 15:30:55 02/23/20 24 02/23/2024 ABS abs NEGATI VE Not Available [address] [place], [address] 02/23/2024 15:30:56 02/23/20 24 02/23/2024 T T [id number] Not Available [address] [place], [address] 02/23/2024 15:30:57 02/23/20 24 02/23/2024 T T [id number] 2 Not Available [address] [place], [address] 02/23/2024 15:30:58 02/23/20 24 02/23/2024 T T 2359 Not Available [address] [place], [address] 02/23/2024 15:30:59 03/01/20 24 03/01/2024 3 HOUR GLUCO SE DEMETRICE ANCE TEST 3 hour glucose tolerance test mg/dL Not Available [address] [place], [address] 03/01/2024 13:18:54 04/18/20 24 04/18/2024 COMPL ETE BLOOD COUNT NO DIFF WBC 8.79 10_3/ uL 4.4-10 .8 normal Not Available [address] [place], [address] 04/18/2024 10:37:23 04/18/20 24 04/18/2024 COMPL ETE BLOOD COUNT NO DIFF RBC 3.77 10_6/ uL 3.93-5 .22 low Not Available [address] [place], [address] 04/18/2024 10:37:23 04/18/20 24 04/18/2024 COMPL ETE BLOOD COUNT NO DIFF HGB 11.2 g/dL 11.2-1 5.7 normal Not Available [address] [place], [address] 04/18/2024 10:37:23 04/18/20 24 04/18/2024 COMPL ETE BLOOD COUNT NO DIFF HCT 34.4 % 36.0-4 6.0 low Not Available [address] [place], [address] 04/18/2024 10:37:23 04/18/20 24 04/18/2024 COMPL ETE BLOOD COUNT NO DIFF MCV 91 fL 80-95 normal Not Available [facility] [address] [place], [address] 04/18/2024 10:37:23 04/18/20 24 04/18/2024 COMPL ETE BLOOD COUNT NO DIFF MCH 29.7 pg 27.0-3 3.0 normal Not Available [address] [place], [address] 04/18/2024 10:37:23 04/18/20 24 04/18/2024 COMPL ETE BLOOD COUNT NO DIFF MCHC 32.6 % 32.0-3 6.0 normal Not Available [address] [place], [id number] 04/18/2024 10:37:23 04/18/20 24 04/18/2024 COMPL ETE BLOOD COUNT NO DIFF RDW 13.6 % 11.7-1 4.6 normal Not Available [address] [place], [address] 04/18/2024 10:37:23 04/18/20 24 04/18/2024 COMPL ETE BLOOD COUNT NO DIFF platelet count 177 10_3/ uL 130-40 0 normal Not Available [address] [place], [address] 04/18/2024 10:37:23 04/18/20 24 04/18/2024 COMPL ETE BLOOD COUNT NO DIFF MPV 10.0 fL 8.0-11 .0 normal Not Available [address] [place], [address] 04/18/2024 10:37:23 04/18/20 24 04/21/2024 STREP B CULTU RE strep B culture Not Available [address] [place], [address] 04/21/2024 09:19:44 12/21/19 24 12/21/2023 ultra sound imagi ng repor t Zaheer t Name: Tamar Olivarez Unit #: [id number] Loc: DI Orderi ng Provid er: KelleyJenelle Marissa t #: [id number] Status : REG CLI Primar y Care Provid er: Tyrel Tristan Date of Exam: Sex: F Admiss ion Date: : 1999 Age: 23 Exam(s ) US OB 2-[address] EXAM: US OB 2-[address] CLINIC AL HISTOR Y: anatom y survey ,z34.9 0,z34. 91. TECHNI QUE: Transa bdomin al obstet rical ultras ound perfor med. COMPAR SADIQ: US US PELVIS TRANSV AGINAL from 2021 FINDIN GS: Number of fetuse s: 1 positi on: VARIED heart rate: 159bpm Placen agustín locati on: There is a grade 1 nematology teacher ior placen ta. The placen agustín tip is 4.6 cm from the internet marketing consultant al os. No eviden ce of previa . Amniot ic fluid index: Amount of fluid is within normal limits . ANATOM ICAL SURVEY : Within normal limits . BIOMET ARCHANA DATA: BPD: 4.46cm , 19week s 3days HC: 16.98c m, 19week s 4days AC: 13.97c m, 19week s 3days FL: 2.79cm , 18week s 4days Cister na magna: 6.6mm Cerebe llum: 1.81cm Latera l ventri shadi: EFW: 271.41 g, 0.61lb , 25.2% Compos ite Age: 19week s 2days NAVA: 2023 Heart Rate: 159bpm ANATOM ICAL SURVEY : Four-c hamber ed heart: Unrema rkable . RVOT: Unrema rkable . LVOT: Unrema rkable . Left-s ided stomac h: Unrema rkable . urinar y bladde r: Unrema rkable . Bilate ral kidney s: Unrema rkable . Three- vessel cord: Unrema rkable . Cord insert ion: Unrema rkable . Construction Code Administrator ior fossa: Unrema rkable . ventri cles: Unrema rkable . nose/l ips: Unrema rkable . Palate : Unrema rkable . spine: Unrema rkable . Two arms and two legs: Unrema rkable . IMPRES HEATHER: 1. Single live intrau terine gestat ion as above. 2. Normal anatom ic survey . DATA REPOSI TORY: Gabee d By: Jenelle Benson CC: ------ ------ ------ ------ ------ ------ ------ ------ ------ ------ ------ ------ - Dictat ed By: Ricky Charles M.D. 1428 Transc ribed By: Ricky Charles 1428 This is privil eged, confid ential inform ation intend ed only for the provid er named. Any use or distri bution by any person other than this provid er is strict ly prohib ited. If you receiv e this report in error, please notify us immedi parvezly at [phone] and return the origin al report to us at the addres s above. Thank- you. [email or web address] [place] [id number], [place], [address] 12/22/2023 09:18:07 02/05/20 24 02/05/2024 ultra sound imagi ng repor t Patikell t Name: Tamar Olivarez Unit #: [id number] Loc: DI Orderi ng Provid er: Malia Leon [facility] Accoun t #: [id number] Status : REG CLI Primar y Care Provid er: Kun Tyrel Date of Exam: Sex: F Admiss ion Date: : 1999 Age: 23 Exam(s ) US RENAL EXAM: US RENAL CLINIC AL HISTOR Y: follow up POCUS done in ED,lt sided abd pain,h ematur ia in pregna ncy,r3 1.9. TECHNI QUE: Jackson scale, color and spectr al Dopple r were used. COMPAR SADIQ: CT CT ABDOME N PELVIS W from 2021 US POCUS EXAM from 2022 US US OB 2-[address] from 2023 FINDIN GS: Renal size in cm: Right: 11.1. Left: 12.1. Echoge nicity : Normal . Hydron ephros is: Modera te left hydron ephros is. Cyst or mass: No. Nephro lithia sis: There is a 1.4 cm echoge rae focus in the inferi or pole of the left kidney . There is a 4 mm echoge rae focus in the upper pole of the left kidney . Other findin gs: There is a known intrau terine gestat ion presen t. No diagno stic images of the fetus were obtain ed. Ranjit r:Norm al. Ureter al jets: Right: Not visual ized on this examin ation. Left: Visual ized and unrema rkable . Prevoi d vol:33 0 cc Postvo id vol:0 cc Renal color flow: Symmet archana and within normal limits . IMPRES HEATHER: 1. Modera te left hydron ephros is. 2. Echoge rae foci in the left kidney suspic ious for nephro lithia sis. DATA REPOSI TORY: Walker childs By: Malia Leon CC: ------ ------ ------ ------ ------ ------ ------ ------ ------ ------ ------ ------ - Dictat ed By: Ricky Charles M.D. [id number] Transc ribed By: Ricky Charles 932 This is privil eged, confid ential inform ation intend ed only for the provid er named. Any use or distri bution by any person other than this provid er is strict ly prohib ited. If you receiv e this report in error, please notify us immedi ately at [phone] and return the origin al report to us at the addres s above. Thank- you. [email or web address] [place] [id number] [facility] [place], [address] 02/09/2024 11:51:09 Result Notes None recorded. Problems Name Status Onset Date Resolution Date Notes Provider Name and Address Organization Details Recorded Time Counseling Active 201605/06/2022 - Comments only - Tyrel COLUNGA - Not interested in taking control pill anymore, but not quite ready to become . Her and her partner have began discussion however. She notes that she has not taken the pill in a couple of days, would be open to should it occur. Today we discussed considering the Caya diaphragm, may be an appropriate option for her. Encouraged to start a vitamin, may elect to go with a skin hair and nails vitamin with folic acid instead of a with iron due to her constipation history. Would need to switch to traditional if she became . She will follow-up should she want to trial the diaphragm. Problem Code: Z71.89; Problem Code Type: ICD-10; Not Available [facility] 3 05:31:42 Constipation Active 201605/06/2022 - Comments only - Tyrel Tristan LAMINATION OPERATOR - Stable, bowel movements 1-2 times per week. Has noticed some improvement with increase in fiber, eating frosted mini weights. Today we discussed that she may benefit from Metamucil capsules, had a hard time tolerating powder. Problem Code: K59.00; Problem Code Type: ICD-10; Not Available [facility] 3 05:31:42 Anxiety disorder Active 201905/06/2022 - Comments only - Tyrel Tristan LAMINATION OPERATOR - Stable at this time. Problem Code: F41.9; Problem Code Type: ICD-10; Not Available [facility] 3 05:31:42 Headache Active 202005/06/2022 - Comments only - Tyrel Tristan LAMINATION OPERATOR - Doing well at this time, using about 1 dose of Excedrin per week. Problem Code: R51.9; Problem Code Type: ICD-10; Not Available [facility] 3 05:31:42 Adult health examination Active 202005/06/2022 - Comments only - Tyrel Tristan LAMINATION OPERATOR - Annual exam completed at today's visit. Declines COVID-19 vaccination. Tetanus and HPV vaccinations are up-to-date. 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 It appears as though she has a yeast infection. She has failed Monistat multiple times. Will send for fluconazole. I have asked her to wait on starting the prescription until vaginal pathogen skin screen returns. We will call her tomorrow. Rx sent tonight due to firm pharmacy delays. Problem Code: N89.8; Problem Code Type: ICD-10; Not Available [facility] 3 05:31:42 Excessive and frequent menstruation Completed 201605/20/2018 Problem Code: N92.0; Problem Code Type: ICD-10; Not Available [facility] 3 05:31:43 Eczema Completed 201605/06/2022 Problem Code: L30.9; Problem Code Type: ICD-10; Not Available [facility] 3 05:31:43 Contraception care management Completed 201704/19/2021 Problem Code: Z30.9; Problem Code Type: ICD-10; Not Available [facility] 3 05:31:43 Chest pain Completed 201605/20/2018 Problem Code: R07.89; Problem Code Type: ICD-10; Not Available [facility] 3 05:31:43 Acute pharyngitis Completed 201810/11/2020 Problem Code: J02.9; Problem Code Type: ICD-10; Not Available [facility] 3 05:31:43 Dizziness and giddiness Completed 201605/20/2018 Problem Code: R42; Problem Code Type: ICD-10; Not Available [facility] 3 05:31:43 Therapeutic drug monitoring assay Completed 202001/03/2022 Problem Code: Z51.81; Problem Code Type: ICD-10; Not Available [facility] 3 05:31:43 Candidiasis of skin Completed 201910/11/2020 Problem Code: B37.2; Problem Code Type: ICD-10; Not Available [facility] 3 05:31:43 Dysuria Completed 201610/11/2020 Problem Code: R30.0; Problem Code Type: ICD-10; Not Available [facility] 3 05:31:44 Allergic rhinitis Completed 201604/19/2021 Problem Code: J30.9; Problem Code Type: ICD-10; Not Available [facility] 3 05:31:44 Simple goiter Completed 201605/25/2019 Problem Code: E04.9; Problem Code Type: ICD-10; Not Available [facility] 3 05:31:44 Hypertrophic condition of skin Completed 201705/06/2022 Problem Code: L91.8; Problem Code Type: ICD-10; Not Available [facility] 3 05:31:44 Acne Completed 201605/06/2022 Problem Code: L70.9; Problem Code Type: ICD-10; Not Available [facility] 3 05:31:44 Impacted cerumen of bilateral ears Completed 201605/25/2019 Problem Code: H61.23; Problem Code Type: ICD-10; Not Available [facility] 3 05:31:44 Problem Notes None recorded. Procedures Surgical History None recorded. Imaging Results Imaging Date Name Status LastModified by Organiz ation Details LastModified Time 12/21/2023 ultrasound imaging report completed [email or web address] [address] [place], [address] 12/22/2023 09:18:07 02/05/2024 ultrasound imaging report completed [email or web address] [address] [place], [address] 02/09/2024 11:51:09 Procedure Notes None recorded. Medical Equipment None Reported. Allergies No known drug allergies Medications Name Sig Start Date Stop Date Status Note LastModified by Organization Details LastModified Time Miralax 17 gram/dose oral powder Take 1 scoop dissolve d in water once a day 05/06 completed Not Available Not Available Not Available norgestim ate 0.25 mg-ethiny l estradiol 35 mcg tablet Take 1 tablet by mouth once a day 04/16 completed Not Available Not Available Not Available Retin-A 0.025 % topical cream Apply pea-size d amount once night per week, graduall y increasi ng to once each night 08/10 completed Not Available Not Available Not Available fluconazo le 150 mg tablet TAKE 1 TABLET BY MOUTH EVERY 72 HOURS 11/06 completed Not Available Not Available Not Available Keflex 500 mg capsule Take 1 tab by mouth three times daily 03/02 completed Not Available Not Available Not Available minocycli ne 100 mg capsule Take 1 cap by mouth twice daily 05/24 completed Through [facility] derm, *for acne* Not Available Not Available Not Available metronida zole 0.75 % (37.5 mg/5 gram) vaginal gel APPLY TOPICALL Y TO THE AFFECTED AREA EVERY DAY AT BEDTIME FOR 5 DAYS 11/06 completed Not Available Not Available Not Available spironola ctone 100 mg tablet Take 1 tablet by mouth twice a day 01/03 completed Not Available Not Available Not Available clobetaso l 0.05 % topical cream apply twice daily to affect area (s). 10/11 completed Prescrib ed by dermattano rowan for eczema Not Available Not Available Not Available Excedrin Migraine 250 mg-250 mg-65 mg tablet Take 2 tablet by mouth once a day as needed 11/06 completed Not Available Not Available Not Available triamcino lone acetonide 0.1 % topical cream Apply to affected area twice daily 08/20 completed Not Available Not Available Not Available Aldactone 50 mg tablet take 1 qam for 1 week then 1 bid thereaft er 2020 active derm Not Available Not Available Not Avai lable clindamyc in 1 % topical gel Apply topicall y to affected area twice daily 12/14 completed [facility] derm Not Available Not Available Not Available Depo-Prov era 150 mg/mL intramusc ular suspensio n Inject 1 ml intramus cularly every three months 05/24 completed Not Available Not Available Not Available minocycli ne 50 mg capsule Dose unknown - takes 1 pill bid, prescrib ed by dermatol emory 08/20 completed Not Available Not Available Not Available cyclospor ine modified 100 mg capsule 1 po bid 01/11 completed derm Not Available Not Available Not Available fluticaso ne propionat e 50 mcg/actua tion nasal spray,christie pension SHAKE WELL AND INSTILL 1 SPRAY INTO BOTH NOSTRILS TWICE A DAY. MAY REDUCE TO ONCE DAILY IF SYMPTOMS ARE CONTROLL ED. active Not Available Not Available No t Available loratadin e 10 mg tablet Take 1 tab by mouth daily 05/24 completed Not Available Not Available Not Available cyclospor ine 100 mg capsule 05/24 completed Prescrib ed by dermattano rowan for eczema Not Available Not Available Not Available clindamyc in phosphate 1 % topical solution Apply to skin twice a day 05/06 completed Not Available Not Available Not Available Bactrim DS 800 mg-160 mg tablet Take 1 tab by mouth twice daily For acne 09/16 completed Through [facility] derm Not Available Not Available Not Available medroxypr ogesteron e 150 mg/mL intramusc ular syringe INJECT 1 MILLILTE R INTRAMUS CULARLY EVERY 3 MONTHS 11/22 completed Not Available Not Available Not Available Golytely 236 gram-22.7 4 gram-6.74 gram-5.86 gram oral solution 240 ml by mouth 03/06 completed Not Available Not Available Not Available Metamucil (with sugar) 3.4 gram/7 gram oral powder Take 2 TBS in 8 ounces of water daily. 04/19 completed Not Available Not Available Not Available Nexplanon 68 mg subdermal implant inserted 11/22/1908/22 completed Not Available Not Available Not Available Vienva 0.1 mg-20 mcg tablet TAKE 1 TABLET BY MOUTH EVERY DAY 11/06 completed Not Available Not Available Not Available magnesium 400 mg (as magnesium oxide) tablet Take 1 tablet by mouth once a day 05/06 completed Not Available Not Available Not Available Vitals Date Recorded Body height Body mass index (BMI) Body weight Body temperature Heart rate Oxygen saturation Oxygen saturation in Arterial blood by Pulse oximetry Respiratory rate Systolic blood pressure Diastolic blood pressure Provider Name and Address Organization Details Last Updated DateTime 4 171.45 cm 24.4 kg/m2 34299.5 9 g 97.3 [degF] 105 /min 99 % 99 % 20 /min 108 mm[Hg] 60 mm[Hg] MANUEL HART MA [facility] 14:15:24 Social History Question Answer Notes LastModified by Organizat ion Details LastModified Time Tobacco Smoking Status Never Smoker MANUEL HART MA [facility], [facility] 11/06/2023 14:06:23 Is Blood Transfusion Acceptable In An Emergency? Yes Information not available 11/06/2023 Are You Currently Employed? Yes Information not available 11/06/2023 What Type Of Diet Are You Following? REGULAR Information n ot available 11/06/2023 What Is The Highest Grade Or Level Of School You Have Completed Or The Highest Degree You Have Received? [id number] Information not available 11/06/2023 Who Is Your Employer? 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 3 Information not available 11/06/2023 How Many Times Per Week Do You Exercise? 1-2 Times Per Week Information not available 11/06/2023 Do You Work In Healthcare? No Information not available 11/06/2023 What Do You Do For Fun? Read Information not available 11/06/2023 Would You Say That, In General, Your Health Is Very Good Information not available 11/06/2023 Women Aged 18-50 - Would You Like To Become In The Next Year? (Female Patients Only) Yes Information not available 11/06/2023 How Often Does Anyone, Including Family, Physically Hurt You? Never Information not available 11/06/2023 How Often Does Anyone, Including Family, Insult Or Talk Down To You? Never Information no t available 11/06/2023 How Often Does Anyone, Including Family, Threaten You With Harm? Never Information not available 11/06/2023 How Often Does Anyone, Including Family, Scream Or Curse At You? Never Information not available 11/06/2023 Within The Past 12 Months, You Worried That Your Food Would Run Out Before You Got Money To Buy More. Never True Information n ot available 11/06/2023 Within The Past 12 Months, The Food You Bought Just Didn't Last And You Didn't Have Money To Get More. Never True Information n ot available 11/06/2023 How Hard Is It For You To Pay For The Very Basics Like Food, Housing, Medical Care, And Heating? Would You Say It Is: Not Hard At All Information not available 11/06/2023 In The Past 12 Months, Has Lack Of Reliable Transportation Kept You From Medical Appointments, Meetings, Work Or From Getting Things Needed For Daily Living? No Information not available 11/06/2023 What Is Your Housing Situation Today? I Have Housing. Information not available 11/06/2023 Who Do You Live With? Boyfriend [email or web address] Information not available 11/06/2023 How Often In The Past Year Have You Used Marijuana (including Smoking, Vaping, Dabbing, Or Edibles)? Never Information not available 11/06/2023 How Often In The Past Year Have You Used Prescription Medications That Were Not Prescribed To You? Never Information n ot available 11/06/2023 How Often In The Past Year Have You Taken Your Own Prescription Medication More Than The Way It Was Prescribed Or For Different Reasons Than Its Intended Purpose? Never Information no t available 11/06/2023 How Often In The Past Year Have You Used Other Drugs (for Example, Heroin, Cocaine, Meth, Salvia, Inhalants)? Never Information not available 11/06/2023 Have You Ever Used IV Drugs? No Information not available 11/06/2023 Date Of Most Recent SBINS 11/06/2023 Information not available 11/06/2023 Do You Have A Medical Power Of Security Coordinator? No Information not available 11/06/2023 What Was The Date Of Your Most Recent Tobacco Screening? 11/06/2023 Information not available 11/06/2023 How Many Children Do You Have? 0 Information not available 11/06/2023 Do You Use Protection During Sex? No Information not available 11/06/2023 Do You Use Protection Against STDs? No Information not available 11/06/2023 What Is Your Relationship Status? Single Information not available 11/06/2023 Are You Sexually Active? Yes Information not available 11/06/2023 What Types Of Sporting Activities Do You Participate In? None Information not available 11/06/2023 Has Tobacco Cessation Counseling Been Provided? No Not Needed Information not available 11/06/2023 Are You Currently In School? No Information not available 11/06/2023 What Contraceptive Method Was Reported At Start Of This Visit? None Information not available 11/06/2023 Do You Have Any Dietary Restrictions? No Information not available 11/06/2023 Do You Or Have You Ever Used Any Other Forms Of Tobacco Or Nicotine? No Information not available 11/06/2023 Do You Want To Talk About Contraception Or Prevention During Your Visit Today? No - This Question Does Not Apply To Me/I Prefer Not To Answer Information not available 11/06/2023 What Is Your Status? Information no t available 11/06/2023 What Is Your Reason For Having No Contraceptive Method At Start Of This Visit? Other Information not available 11/06/2023 Sex: Female Functional Status Question Answer Note LastModified by Organizat ion Details LastModified Time What is your exercise level? Occasional Information not available 11/06/2023 Mental Status None recorded. Family History Relationship Description Onset Age of this Age Resolved Age Notes Paternal Grandfather Family history of malignant neoplasm Paternal Grandmother Family history of heart failure MD at 57 Medical History No medical history recorded. Gynecological History Statement/Question Response Date of LMP 08/07/2023 LMP Approximate Sexually Active? Y Obstetrics History GPAL:G 0 P 0 0 0 0 Immunizations Vaccine Type Date Status Provider Name and Address Organization Details Recorded Time Influenza, split virus, quadrivalent, PF 11/06/2023 completed KEANU MENENDEZ [address], [place], [address], [facility] 11/09/2023 09:58:10 MMR 06/08/2007 completed Not Available [facility] 04:01:25 MMR 09/26/2003 completed Not Available [facility] 04:01:25 DTaP, unspecified formulation 2001 completed Not Available [facility] 08/21/2023 04:01:25 DTaP, unspecified formulation 2001 completed Not Available [facility] 08/21/2023 04:01:26 DTaP, unspecified formulation 02/21/2002 completed Not Available [facility] 08/21/2023 04:01:26 DTaP, unspecified formulation 06/08/2007 completed Not Available [facility] 08/21/2023 04:01:26 DTaP, unspecified formulation 09/23/2005 completed Not Available [facility] 08/21/2023 04:01:26 meningococcal MCV4P 05/20/2018 completed Not Available [facility] 08/21/2023 04:01:26 meningococcal MCV4P 05/24/2019 completed Not Available [facility] 08/21/2023 04:01:26 Tdap 10/14/2013 completed Not Available [facility] 04:01:26 HPV, unspecified formulation 12/03/2015 completed Not Available [facility] 08/21/2023 04:01:26 HPV, unspecified formulation 01/25/2016 completed Not Available [facility] 08/21/2023 04:01:26 Influenza, split virus, quadrivalent, PF 07/17/2017 completed Not Available [facility] 08/21/2023 04:01:27 Influenza, split virus, quadrivalent, PF 08/23/2019 completed Not Available [facility] 08/21/2023 04:01:27 Pneumococcal Conjugate, unspecified formulation 2001 completed Not Available [facility] 08/21/2023 04:01:27 Pneumococcal Conjugate, unspecified formulation 01/17/2002 completed Not Available [facility] 08/21/2023 04:01:27 Pneumococcal Conjugate, unspecified formulation 04/07/2002 completed Not Available [facility] 08/21/2023 04:01:27 HPV9 04/16/2017 completed Not Available [facility] 04:01:27 Hib, unspecified formulation 2001 completed Not Available [facility] 08/21/2023 04:01:27 Hib, unspecified formulation 2001 completed Not Available [facility] 08/21/2023 04:01:27 Hib, unspecified formulation 02/21/2002 completed Not Available [facility] 08/21/2023 04:01:27 varicella 03/24/2003 completed Not Available [facility] 04:01:27 varicella 03/30/2008 completed Not Available [facility] 04:01:27 Hep B, unspecified formulation 04/07/2002 completed Not Available [facility] 08/21/2023 04:01:28 Hep B, unspecified formulation 2001 completed Not Available [facility] 08/21/2023 04:01:28 Hep B, unspecified formulation 2001 completed Not Available [facility] 08/21/2023 04:01:28 Hep B, unspecified formulation 09/23/2005 completed Not Available [facility] 08/21/2023 04:01:28 Hep A, adult 05/20/2018 completed Not Available [facility] 08/21/2023 04:01:28 Hep A, ped/adol, 2 dose 04/16/2017 completed Not Available [facility] 08/21/2023 04:01:28 influenza, unspecified formulation 2014 completed Not Available [facility] 08/21/2023 04:01:28 polio, unspecified formulation 2001 completed Not Available [facility] 08/21/2023 04:01:28 polio, unspecified formulation 01/17/2002 completed Not Available [facility] 08/21/2023 04:01:28 polio, unspecified formulation 06/07/2002 completed Not Available [facility] 08/21/2023 04:01:29 polio, unspecified formulation 09/23/2005 completed Not Available [facility] 08/21/2023 04:01:29 Tdap 02/23/2024 completed Barb Rodriguez RN [facility], [facility] 02/24/2024 06:42:01 Past Encounters Encounter ID Performer Location Encounter Start Date Encounter Closed Date Diagnosis/Indication Diagnosis SNOMED-CT Code [id number] KEANU MENENDEZ [address] [address] 11/06/2023 13:53:18 11/06/2023 15:00:07 Active or passive immunization [id number] Adult heal th examination [id number] Constipation [id number] Anxiety disorder [id number] 06 Health Concerns Section Related Observation LastModified by Organization Detai ls LastModified Time None Recorded Concern Status LastModified by Organization Details LastModified Time None Recorded Advance Directives Directive None Recorded Payers Encounter Date Sequence Insurance Name Policy Number Policy Ford Covered Member ID Ford Member ID Guarantor Name 11/06/2023 1 [facility] (MEDICAID) Delmy Lazo [id number] Delmy [id number] Notes Date Note Type Note Provider Name and Address Organization Details Recorded Time 11/06/2023 text/html HPI Notes: Esther marr is here today for annual exam and to receive necessary preventative care. She is about 12 weeks . She is taking a vitamin. She is doing well. She has some constipation, that she occasionally takes a stool softner for. KEANU MEN[address], [place], [id number], [facility] 11/09/2023 10:04:07 OBGyn Episode No OBEpisode recorded.
--- OUTSIDE RECORDS SUMMARY | 2024-05-20 00:41 | XMS_ITS | Encounter Summary ---
Author Organization [facility] Address [address] [place] [id number] Care Team Providers Care Farm Worker Name Role Phone Saira Jeffers [facility] Primary Care Provider + Encounter Details Date Type Department Care Team (Late st Contact Info) Description 12/01/2022 Lab Requisition [facility] Pathology & Laboratory Medicine - [address] [address] Outr Resulting Lab, Provider Social History Tobacco [...] Associated Diagnosis Comments CHLAMYDIA/N. GONORRHOEAE AMPLIFIED NUCLEIC ACID, THINPREP Routine 12/01/2022 13:20 EST documented in this encounter Results * CHLAMYDIA/N. GONORRHOEAE AMPLIFIED RNA, THINPREP (12/01/2022 13:20 EST) Neisseria gonorrhoeae Result Negative Negative 12/02/2022 13:51 EST [facility] Chlamydia trachomatis Result Negative Negative 12/02/2022 13:51 EST [facility] Papanicolaou smear specimen (specimen) CERVIX UTERI STRUCTURE / Unknown 12/01/2022 13:20 EST 12/02/2022 7:58 EST Provider Outr Resulting Lab MICROBIOLOGY - GENERAL ORDERABLES [facility] [address] [place] [address] documented in this encounter Visit Diagnoses Not on filedocumented in this encounter Care Teams Farm Worker Relationship Specialty Start Date End Date Saira Jeffers FNP- PCP - General 05/04/17 documented as of this encounter
--- OUTSIDE RECORDS SUMMARY | 2024-05-20 00:41 | XMS_ITS | Encounter Summary ---
Author Organization [facility] Address [address] [place] [address] Care Team Providers Care Mortar Carrier Name Role Phone Saira Jeffers [facility] Primary Care Provider + Encounter Details Date Type Department Care Team (Late st Contact Info) Description 04/27/2020 Lab Requisition [facility] Pathology & Laboratory Medicine - [address] [address] Outr Resulting Lab, Provider Social History Tobacco [...] Comments CHLAMYDIA/N. GONORRHOEAE AMPLIFIED NUCLEIC ACID Routine 04/27/2020 9:00 EDT documented in this encounter Results * CHLAMYDIA/N. GONORRHOEAE AMPLIFIED RNA (04/27/2020 9:00 EDT) Neisseria gonorrhoeae Result Negative Negative 05/01/2020 10:56 EDT [facility] Chlamydia trachomatis Result Negative Negative 05/01/2020 10:56 EDT [facility] Swab ENTIRE ENDOCERVIX / Unknown 04/27/2020 9:00 EDT 04/27/2020 21:37 EDT Provider Outr Resulting Lab MICROBIOLOGY - GENERAL ORDERABLES [facility] [address] [place] [address] documented in this encounter Visit Diagnoses Not on filedocumented in this encounter Care Teams Mortar Carrier Relationship Specialty Start Date End Date Saira Jeffers, COBBLER UPPER- PCP - General 05/04/17 documented as of this encounter
--- OUTSIDE RECORDS SUMMARY | 2024-05-20 00:41 | XMS_ITS | Encounter Summary ---
Author Organization [facility] Address [address] [place] [address] Care Team Providers Care Traffic Inspector Name Role Phone Saira Jeffers [facility] Primary Care Provider + Encounter Details Date Type Department Care Team (Late st Contact Info) Description 08/27/2021 Lab Requisition [facility] Pathology & [place] [address] Outr Resulting Lab, Provider Social History Tobacco [...] Comments CHLAMYDIA/N. GONORRHOEAE AMPLIFIED NUCLEIC ACID Routine 08/26/2021 14:00 EST documented in this encounter Results * CHLAMYDIA/N. GONORRHOEAE AMPLIFIED RNA (08/26/2021 14:00 EST) Neisseria gonorrhoeae Result Negative Negative 08/28/2021 14:44 EST [facility] Chlamydia trachomatis Result Negative Negative 08/28/2021 14:44 EST [facility] Swab ENTIRE ENDOCERVIX / Unknown 08/26/2021 14:00 EST 08/27/2021 17:21 EST Provider Outr Resulting Lab MICROBIOLOGY - GENERAL ORDERABLES [facility] [address] [place] [address] documented in this encounter Visit Diagnoses Not on filedocumented in this encounter Care Teams Traffic Inspector Relationship Specialty Start Date End Date Saira Jeffers, REMARKETING REP- PCP - General 05/04/17 documented as of this encounter
--- OUTSIDE RECORDS SUMMARY | 2024-05-20 00:41 | XMS_ITS | Encounter Summary ---
Author Organization [facility] Address [address] [place] [address] Care Team Providers Care Travel Manager Name Role Phone Saira Jeffers [facility] Primary Care Provider + Encounter Details Date Type Department Care Team (Late st Contact Info) Description 10/26/2020 Lab Requisition [facility] Pathology & [place] [address] Outr Resulting Lab, Provider Social History Tobacco [...] Comments CHLAMYDIA/N. GONORRHOEAE AMPLIFIED NUCLEIC ACID Routine 10/26/2020 10:30 EST documented in this encounter Results * CHLAMYDIA/N. GONORRHOEAE AMPLIFIED RNA (10/26/2020 10:30 EST) Neisseria gonorrhoeae Result Negative Negative 10/29/2020 14:05 EST [facility] Chlamydia trachomatis Result Negative Negative 10/29/2020 14:05 EST [facility] Swab ENTIRE ENDOCERVIX / Unknown 10/26/2020 10:30 EST 10/26/2020 22:24 EST Provider Outr Resulting Lab MICROBIOLOGY - GENERAL ORDERABLES [facility] [address] [place] [address] documented in this encounter Visit Diagnoses Not on filedocumented in this encounter Care Teams Travel Manager Relationship Specialty Start Date End Date Saira Jeffers, WINDMILL TECHNICIAN- PCP - General 05/04/17 documented as of this encounter
--- NOTE | 2024-05-20 03:35 | HPE_ITS ---
Date of service: 05/20/24 Time of Service: 03:35 Assessment and Plan Assessment and plan (1) Normal labor: Status: Acute Assessment and plan: A: 23 yo G1 @ 41 wks, spontaneous onset labor, category 1 tracing GBS neg, Rh neg, Varicella non-immune, Rubella immune EFW > 4000 gms, moderate risk for SD and PPH P: Pt admitted to , T&S and CBC Pain medication as requested, pt chooses epidural @ 8 cm dilation Anticipate vaginal delivery OB-HPI Labor/Delivery History of Present Illness Reason for Visit: early labor Chief Complaint: Uterine Contractions (woke up at 2315 with mild contractions, decided at 0030 she wanted to come to the hospital as she was uncomfortable, no bleeding, no ROM.); Other (scheduled for IOL for postdates later today. ). NAVA Calculator Estimated Delivery Date Method Current WG Current Estimate 05/13/24 LMP (Certain) 41w 0d Other Estimates 05/13/24 Ultrasound #1 41w 0d History of Present Expected Delivery Route/Plan - CNM FOB/boyfriend - Carter Nascimento (first child) JUAN Carney- yes to circ. Would like to use tub in labor Varicella non-immune, offer vaccine GBS negative Specific Issues/Plan 1. cfDNA -low risk, CF carrier screen negative 2. Rh negative, Received rhoGam @ 28 wks 3. Left sciatic pain, referred to [facility] PT 12/21/23, improved in 3rd trimester 4. Left flank pain - moderate left hydronephrosis and kidney stone. Asymptomatic in 3rd trimester. 5. 28 wk 1 hour 156, 3 hr GTT: [phone]. Advised to avoid sweets. 6. Hgb 10.8, daily vitamin recommended. Hgb at 36 weeks- 11.2 Assessment: History Reviewed & Current Informed Consent Informed Consent: Regional Anesthesia and Risk,Benefits,Alternatives Discussed Review of Systems Narrative: ROS completed and noncontributory other than HPI PFSH All Active Problems (Updated 05/20/24 @ 04:17 by Jenelle Benson) Normal labor (Acute) Left renal stone (Acute) Rh negative state in antepartum period (Acute) Sciatic nerve pain (Acute) Susceptible to varicella (non-immune), currently (Acute) (Acute) Medical History (Updated 05/20/24 @ 04:17 by Jenelle Benson) Family history of thyroid disease in mother Vaginal irritation Vaginal discharge during Dysuria during Left sided abdominal pain Constipation w/u by PCP, considering GI referral Hemorrhagic cysts of both ovaries Family History Mother Hypothyroidism Father No problems noted. Sister No problems noted. Sister No problems noted. Brother No problems noted. Social History Smoking/Tobacco Use Status: Never Smoking risk assessment performed?: Yes Alcohol Intake: never Substance use type: does not use current occupation: [employer] Pets and animals: Yes Pets and animals: dog(s) Sexually active: Yes Do you think of yourself as: straight/heterosexual Current gender identity: female Do you feel safe at home: Yes Do you feel safe in your relationship?: Yes History History 1 Para 0 Hx # Term Pregnancies 0 Multiple births 0 Hx # Pregnancies 0 Ectopic pregnancies 0 AB induced 0 Hx Number of Living Children 0 AB spontaneous 0 Meds Allergies and Home Medications Allergies Allergy/AdvReac Type Severity Reaction Status Date / Time No Known Allergies Allergy Verified 05/16/24 08:47 Home Medications ?Medication ?Instructions ?Recorded ?Confirmed ?Type vitamin with calcium 1 tab PO DAILY #90 tabs 09/09/23 05/20/24 Rx no.72-iron 27 mg-folic acid 1 mg tablet Exam Physical Exam Vital signs: Pulse BP 0 L 122/76 05/20/24 03:33 05/20/24 03:13 Vital Signs Reviewed: Yes Constitutional Constitutional: mild distress, average body habitus and cooperative Detailed Labor and Delivery Exam Dilation: 8 (RN examined pt when she arrived to unit @ 0130 and could not reach cvx) Effacement (%): 100 station: -1 Position: LOT Consistency: soft Amniotic Membrane Status: Intact Fetus A Heart Rate Baseline: 125 Monitor Accelerations: 15 X 15 Monitor Decelerations: None Variability: Moderate (6-25 BPM) Categories: Category I Est. Weight: 9 lb 0.623 oz Est. Weight: 4100 gms HEENT Exam HEENT Exam: Normal Neck Exam Neck Exam: Normal Chest/Brest/Axilla Exam Chest Exam: Normal Breast Exam Breast Exam: Not Done Respiratory Exam Respiratory Exam: Normal Cardiovascular Exam Cardiovascular Exam: Normal Abdominal Exam Abdominal Exam: Normal (Gravid, S=D) Rectal Exam Rectal Exam: Normal Exam Exam: Normal Extremities Exam Extremities Exam: Normal Back/Spine/Pelvis Exam Back Exam: Normal Pelvis Adequate: Yes Skin Exam Skin Exam: Normal Neurological Exam Neurological Exam: Normal Psychiatric Exam Psychiatric Exam: Normal (anxious and tense) Results Results Group Beta Strep: Negative Blood Type: A- Rubella Status: Immune Varicella Immunity: Nonimmune Lab Results: 1 hr glucola @ 28 wks elevated @ 156, 3 hr GTT was nml x4 Risk Assessment Risk for Shoulder Dystocia Historical/Initial OB: NEGATIVE FOR: Pelvic Abnormality, Pre- BMI>30, Previous Shoulder Dystocia or Previous Macrosomia 36 Weeks: NEGATIVE FOR: Current Gestational DM, EFW>4500gms or Maternal Weight Gain>40lbs 40 Weeks: POSTIVE FOR: Post Dates Increased Risk?: Yes Counseling: PPH risk rises due to LGA Delivery Plan @ 36wks: Delivery Plan @ 40 wks: pt desires IOL at 41 wks, Risk for Pre-Eclampsia Date Initiated/Initials: not indicated, jk Yes, if one or more: NEGATIVE FOR: Hx Pre-E/Gest HTN, Chronic HTN, Multiple Gestation, Pre-gestational DM, Renal Disease, Systemic Lupus or APA Syndrome Yes, if 2 or more: POSITIVE FOR: Nulliparity; NEGATIVE FOR: Age>= 35 yrs, >10yr btwn pregnancies, BMI>30, ethinicty, Mother/Sister w/ Pre-E or Previous IUGR Risk for Post- Hemorrhage Initial: NEGATIVE FOR: Multiple Gestation, Previous PPH, Known Clotting Deficiency, Grand Multiparity or Anticoagulation 36 Weeks: NEGATIVE FOR: Anemia, hgb<10, Low platelets(thrombocytopenia), Gestational HTN or Pre-E, Polyhydraminios or EFW>4500gms 40 Weeks: NEGATIVE FOR: Anemia, hgb<10, Low platelets (thrombocytopenia), Gestation HTN or Pre-E, Polyhydraminios or EFW>4500gms At Risk?: Yes (due to LGA fetus) Counseled re: Active Management: Yes Risks Reviewed Risks Reviewed Upon Admission: Yes
[2024-05-20 03:46] LABS: HCT 37.4 % (36.0-46.0); HGB 12.5 g/dL (11.2-15.7); MCH 29.8 pg (27.0-33.0); MCHC 33.4 % (32.0-36.0); MCV 89 fL (80-95); MPV 10.4 fL (8.0-11.0); Platelet Count 184 10^3/uL (130-400); RDW 13.5 % (11.7-14.6); RDW-SD 44.1 fL; WBC 13.26 10^3/uL (4.4-10.8)
--- NOTE | 2024-05-20 04:31 | W.OBNST ---
Date of service: 05/20/24 Time of Service: 04:31 NST Evaluation Reason for NST Reasons for Nonstress Test: POSTDATES Gestational Age Gestational Age in Weeks and Days: 41 Weeks and 0Days Test and Monitor Explained Test/Monitor Explained: Test Explained, Monitor Explained and Patient Verbalized Understanding Vital Signs Blood Pressure: 121/64 Pulse: 96 Temperature: 97.7 F NST Information Date on Monitor: 05/20/24 Time on Monitor: 01:20 Date off Monitor: 05/20/24 Time off Monitor: 01:43 Total Time on Monitor: 23 NST Interventions: None Contraction Frequency: 2-3 NST Evaluation Patient States Movement: Present FHR Baseline: 125 Variability: Moderate 6-25 bpm Accelerations: 15x15 Decelerations: None NST Results: Reactive Note Ultrasound Done: N/A. NST Note NST Reviewed and Verified by: Jenelle Benson
[2024-05-20] MEDS: Normal Saline Flush 10 ML SYR (04:32)
[2024-05-20] MEDS: Lactated Ringers 1,000 ML 125 ML IV ×2 (04:35→09:00)
[2024-05-20] MEDS: Lactated Ringers 500 ML IV (04:36)
--- NOTE | 2024-05-20 04:53 | ANES.PREOP_ITS ---
General Info Date of Service Date Performed: 05/20/24 Height: 4 ft 11 in Weight: 88.451 kg Body Mass Index (BMI): 39.4 Meds Allergies and Home Medications Allergies Allergy/AdvReac Type Severity Reaction Status Date / Time No Known Allergies Allergy Verified 05/16/24 08:47 Home Medication ?Medication ?Instructions ?Recorded vitamin with calcium 1 tab PO DAILY #90 tabs 09/09/23 no.72-iron 27 mg-folic acid 1 mg tablet Current Visit Medications: Current Medications Generic Name Dose Route Start Last Admin Trade Name Freq PRN Reason Stop Dose Admin Fentanyl/Ropivacaine 200 ml 05/20/24 04:30 Fentanyl/Ropivacaine 2 Mcg/Ml And 0.1% 200 Ml Cadd Cassette EP DIRECTED DEEPTHI Ringer's Solution 1,000 mls @ 125 mls/hr 05/20/24 04:30 IV INFUSION DEEPTHI Ringer's Solution 500 mls @ 500 mls/hr 05/20/24 04:30 IV 05/20/24 05:29 BOLUS ONE IV Miscellaneous Supplies 1 each 05/20/24 04:30 Iv Access IV DIRECTED DEEPTHI Sodium Chloride 0 ml 05/20/24 04:29 Normal Saline Flush 10 Ml Syr IVP PRN PRN Sodium Chloride 0 ml 05/20/24 08:30 Normal Saline Flush 10 Ml Syr IVP BID DEEPTHI Sodium Chloride 0 ml 05/20/24 04:29 Normal Saline 10 Ml Vial IJ DIRECTED PRN PFSH Active Problems Active Problems: Problem Status Onset Code Normal labor Acute O80, Z37.9 Left renal stone Acute N20.0 Rh negative state in antepartum period Acute O26.899, Z67.91 Sciatic nerve pain Acute M54.30 Susceptible to varicella (non-immune), currently Acute O09.899, Z28.39 Acute Z34.90 Medical History Medical History (Updated 05/20/24 @ 04:17 by Jenelle Benson) Family history of thyroid disease in mother Vaginal irritation Vaginal discharge during Dysuria during Left sided abdominal pain Constipation w/u by PCP, considering GI referral Hemorrhagic cysts of both ovaries Tobacco Smoking/Tobacco Use Status: Never Alcohol Alcohol Intake: never Substance Use Substance use type: does not use Prental History History 2 1 Para 0 Hx # Term Pregnancies 0 Multiple births 0 Hx # Pregnancies 0 Ectopic pregnancies 0 AB induced 0 Hx Number of Living Children 0 AB spontaneous 0 Vital Signs and Lab Results Vital Signs Most Recent Vital Signs in EMR: Most Recent Vital Signs Temp Pulse Resp BP 36.5 C 112 H 16 122/76 05/20/24 03:43 05/20/24 04:49 05/20/24 03:43 05/20/24 03:13 Lab Results 05/20/24 03:34 Blood Type / Crossmatch: 2 No Data to Display Complete Blood Count: 2 White Blood Count 13.26 10^3/uL (4.4-10.8) H 05/20/24 03:34 Red Blood Count 4.20 10^6/uL (3.93-5.22) 05/20/24 03:34 Hemoglobin 12.5 g/dL (11.2-15.7) 05/20/24 03:34 Hematocrit 37.4 % (36.0-46.0) 05/20/24 03:34 Platelet Count 184 10^3/uL (130-400) 05/20/24 03:34 Complete Metabolic Panel: 2 No Data to Display Liver Function Panel: 2 No Data to Display Coagulation Panel: 2 No Data to Display Cardiac Panel: 2 No Data to Display Arterial Blood Gas: 2 No Data to Display Venous Blood Gas: 2 No Data to Display Pancreas Panel: 2 No Data to Display Thyroid Panel: 2 No Data to Display Infectious Disease: 2 No Data to Display Blood Cultures: 2 No Data to Display Toxicology Panel: 2 No Data to Display Panel: 2 No Data to Display Anesthesia Assessment and Plan Anesthesia History Personal History: No History of Anesthesia Complications Family History: No Family History of Anesthesia Complications Exercise Tolerance Exercise Tolerance: Metabolic Equivalents>4 Cardiac & Pulmonary Exam Cardiac Exam: Normal S1/S2 Heart Sounds Pulmonary Exam: Clear Bilateral Breath Sounds Implantable Cardiac Device Does patient have a Pacemaker or an ICD?: No Airway Exam Known Difficult Airway: No Mallampati Class: 2 Mouth Opening: Normal (> 3cm) Thyromental Distance: Greater than 3 cm Neck Range of Motion: Full ROM Neck Circumference: Normal Teeth Condition: Normal Dentition ASA Classification ASA Score: ASA 2 Emergency Case?: No NPO Status NPO Status: Full Stomach Status Status: Confirmed Anesthesia Plan Resuscitation Status: Full Code Anesthesia Technique: Epidural Anesthesia Airway Planned: Natural Airway Pain Management: Epidural Monitors Used: Standard Monitors Preoperative Comments:: 23 yo G1 female 42 weeks requesting labor epidural. Sig PMHx: sciatic pain. No HTN or asthma. Plt 184
[2024-05-20] MEDS: FentaNYL/ROPIvacaine 2 mcg/ml and 0.1% 200 ML CADD Cassette EP (05:26)
--- NOTE | 2024-05-20 05:42 | W.ANESNEU ---
Epidural/Spinal Catheter Date Performed: 05/20/24 Procedure Start: 05:11 Procedure Stop: 05:16 Requesting Provider: Jenelle Benson Procedure Location: Obstetrics Reason Performed: Labor Epidural Standard Monitors Applied: Blood Pressure and SpO2 Patient Position: Sitting Sedation Given (Indicate Dose Given): No Sedation given Patient Mental Status: Awake Sterility: Hand Hygiene, Surgical Cap, Surgical Mask, Sterile Gloves, Sterile Drape/Sheet and Chlorhexidine Procedure Location: L2-L3 Interspace Epidural Needle: Tuohy 17 Guage Needle Length: 3.5 Inch Needle Approach: Midline Epidural Procedure: 1% Lidocaine to skin and subcutaneous tissue with 25G needle and JOSEPH to Saline Used Catheter Placed?: Catheter Placed Test Dose (Indicate Dose Given): 3ml 1.5% Lidocaine with 1:200K Epinephrine Given and Negative Test Dose Loss of Resistance Depth (cm): 6 Catheter depth at skin (cm): 12 Dressing: Sorbaview Dressing Placed and Dressing reinforced with Tape Epidural Provider Bolus (Indicate Dose Given): Total Ropivacaine 0.1% with Fentanyl 2mcg/ml Given from pump. (ml) Dose:: 7 mL Additives (Indicate Dose Given ): None Infusion Medication: Medication Infusion Began Medication Infusion: Ropivacaine 0.1% with Fentanyl 2mcg/ml Maintenance Infusion Rate (ml/hour): 10 PCEA Bolus Dose (ml): 5 Block Level: N/A Paresthesia: None Ultrasound: Used to ivelisse site Number of Attempts (See previous attempts in note section): 1 Procedure Tolerated: No Complications Procedure Outcome: Successful Performed By: Lionel Leger
--- NOTE | 2024-05-20 06:48 | W.PM.OBNL1 ---
Date of service: 05/20/24 Time of Service: 06:48 Informed Consent Informed Consent: Regional Anesthesia and Risk,Benefits,Alternatives Discussed Pelvic Exam Comments: Deferred, pt asleep Contractions Monitor Mode: External (Novii) Contraction Frequency(min): 2-3 Intensity: Moderate/Strong Fetus A Monitor: External (US) (Novii) Heart Rate Baseline: 140 Variability: Moderate (6-25 BPM) Categories: Category I Accelerations: 15 X 15 Decelerations: Early Amniotic Membrane Status: Intact Assessment and Plan Assessment and plan (1) Normal labor: Status: Acute Assessment and plan: A: Epidural anesthesia is effective, pt resting, category 1 tracing P: Discussed AROM with pt after some rest Anticipate Objective Abnormal lab results 05/20/24 Range/Units 03:34 WBC 13.26 H (4.4-10.8) 10^3/uL Temp Pulse Resp BP Pulse Ox 97.7 F 102 H 16 111/65 99 05/20/24 03:43 05/20/24 06:47 05/20/24 03:43 05/20/24 06:47 05/20/24 06:47 Laboratory Results WBC 13.26 10^3/uL (4.4-10.8) H 05/20/24 03:34 RBC 4.20 10^6/uL (3.93-5.22) 05/20/24 03:34 Hgb 12.5 g/dL (11.2-15.7) 05/20/24 03:34 Hct 37.4 % (36.0-46.0) 05/20/24 03:34 MCV 89 fL (80-95) 05/20/24 03:34 MCH 29.8 pg (27.0-33.0) 05/20/24 03:34 MCHC 33.4 % (32.0-36.0) 05/20/24 03:34 RDW 13.5 % (11.7-14.6) 05/20/24 03:34 Plt Count 184 10^3/uL (130-400) 05/20/24 03:34 MPV 10.4 fL (8.0-11.0) 05/20/24 03:34 ABO/Rh AB Negative 05/20/24 03:34 Antibody Screen POSITIVE 05/20/24 03:34 Antibody Identification Anti-D 05/20/24 03:34 Vital Signs Reviewed: Yes Subjective Interval history since last seen: Pt used nitrous to good effect while awaiting epidural placement. Regional anesthesia in effect by 0530 and pt has been resting comfortably, dozing for past hour.
--- NOTE | 2024-05-20 08:11 | W.PM.OBNL1 ---
Date of service: 05/20/24 Time of Service: 08:11 Pelvic Exam Dilation: 9 Effacement (%): 100 station: 0 Contractions Monitor Mode: External Contraction Frequency(min): 3-4 Intensity: Moderate/Strong Fetus A Monitor: External (US) Heart Rate Baseline: 140 Variability: Moderate (6-25 BPM) Categories: Category I Amniotic Membrane Status: Ruptured Rupture Method: Artifical Amniotic Fluid: Clear Amount: small Date of Membrane Rupture: 05/20/24 Time of Membrane Rupture: 07:42 Assessment and Plan Assessment and plan (1) Normal labor: Status: Acute Assessment and plan: A: Active labor, effective anesthesia Category 1 tracing, clear fluid on AROM P: Maternal position changes to facilitate passive descent Anticipate this morning Subjective Interval history since last seen: comfortable though able to move legs well
[2024-05-20] MEDS: miSOPROStol 200 MCG TAB 600 MCG SL (10:44)
--- NOTE | 2024-05-20 11:30 | W.OBDELIVERY ---
Date of service: 05/20/24 Time of Service: 11:30 OB Labor/ Delivery Information Baby A Delivery Delivery Method: Spontaneaous Presentation: Cephalic Cephalic Position: Vertex Vertex Position: Left Occipital Anterior Breech Position: N/A Cord Description-Baby A: 3 Vessels Amniotic Fluid: Clear Estimated Blood Loss: 350 QBL Delivery Outcome: Liveborn Infant Transferred: Remains with Mother Note: Pt progressed to full dilation with passive descent to +3 after AROM, category 1 tracing, 2nd stage huddle completed, strong coached pushing efforts x1 hour resulted in of a vigorous male over attempted intact perineum, shoulders delivered without difficulty and infant to mothers arms immediately. pitocin bolus started, straight cath done for 75 ml concentrated yellow urine, cord clamped and cut by FOB at 5 minutes of age, Mack placenta delivered intact with 3VC, minimal lochia controlled with fundal massage, 2nd degree laceration repaired with 3.0 Vicryl Rapide under epidural anesthesia, cord blood collected. Vaginal sweep performed and no clots were found, counts are correct and sharps off the delivery table. Misoprostel 600 mcg PO given as a precaution in the setting of an LGA-appearing infant, strong family bonding observed, QBL 350 ml, apgars 9/9, weight 4745 gms. Providers Nurse Policy And Planning Manager: Jenelle Benson Ms Access Database Developer: Lionel Leger Nurse: Krishan Laureano Nurse: Jai Pickard Labor/Delivery Information Number of Babies in Womb: 1 Steroids Given: None Group Beta Strep: Negative Antibiotics Administered: No Rubella Status: Immune Blood Type: AB- Varicella Immunity: Nonimmune Medication in Delivery: pitocin Shoulder Dystocia: No Stages of Labor Onset of Labor Date: 05/19/24 Onset of Labor Time: 23:15 Complete Dilatation Date: 05/20/24 Complete Dilatation Time: 07:42 Labor - Stage 1 Duration: 8 hours and 27 minutes ROM Baby A: 05/20/24 ROM Baby A: 07:42 ROM Total Time- Baby A: [id number] Infant Delivery Date-Baby A: 05/20/24 Infant Delivery Time-Baby A: 10:33 Labor Stage 2 Duration: 2 hours and 51 minutes Placenta Delivery Date-Baby A: 05/20/24 Placenta Delivery Time-Baby A: 10:40 Labor-Stage 3 Duration: 7 minutes Total Length of Labor-Baby A: 11 hours and 18 minutes Placenta Status: Delivered Baby A Gender: Male Gestational Status: Term (39-41.6 wks) Gestational Age in Weeks/Days: 41 Weeks and 0 Days weight: 10 lb 7.375 oz Weight Comment: 4745 gms Score-1 Minute Interval(Baby A) Heart Rate-1 minute: 100 BPM or Greater Respiratory Effort- 1 minute: Spontaneous/Strong Cry Muscle Tone-1 minute: Active Movement Reflex Response-1 minute: Prompt Response Color-1 minute: Bluish Hands or Feet Total Score-1 minute: 9 Score-5 Minute Interval(Baby A) Heart Rate- 5 minute: 100 BPM or Greater Respiratory Effort-5 minute: Spontaneous/Strong Cry Muscle Tone-5 minute: Active Movement Reflex Response-5 minute: Prompt Response Color-5 minute: Bluish Hands or Feet Total Score- 5 minute: 9
[2024-05-20] MEDS: Dibucaine 1% 28 GM TUBE TP (14:28)
[2024-05-20] MEDS: Hamamelis Leaf/Glycerin 100 EACH BOX PR (14:29)
[2024-05-20] MEDS: Acetaminophen 325 MG TAB 650 MG PO (16:22)
[2024-05-20] MEDS: Ibuprofen 600 MG TAB PO (16:22)
[2024-05-20] MEDS: Docusate Sodium 100 MG CAP PO (16:23)
--- NOTE | 2024-05-20 16:56 | ANES.POST_ITS ---
Postoperative Evaluation Date, Time and Location Date Performed: 05/20/24 Time Performed: 16:56 Patient Location: Obstetrics Vital Signs Most Recent Imported Vital Signs: Most Recent Vital Signs Temp Pulse Resp BP Pulse Ox 36.7 C 110 H 16 116/54 L 97 05/20/24 15:10 05/20/24 15:11 05/20/24 16:00 05/20/24 15:10 05/20/24 15:11 Pain Score Most Recent Pain Score: Most Recent Pain Score Pain Level [Abdomen] 2 05/20/24 15:10 Pain Level 1 05/20/24 16:22 Assessment Mental Status: Awake (Alert & Oriented to Patient Baseline) Airway and Respiratory Function: Patent airway with normal (patient baseline) respiratory exam Cardiovascular Function: Hemodynamically Stable Hydration Status: Adequately Hydrated Nausea & Vomiting: No Nausea or Vomiting Pain: Pt. Denies Any Pain Peripheral Nerve Block: Patient did not receive a nerve block Postoperative Comments:: Epidural removed by staff physical therapist. Reported as intact on removal. SUSI
--- NOTE | 2024-05-21 02:10 | W.PM.OBPNV1 ---
Date of service: 05/21/24 Time of Service: 10:00 Assessment and Plan Assessment and plan (1) Term delivered: Status: Acute Assessment and plan: A: PPD#1 nml recovery; is going well Satisfied with experience; desires circumcision Encouraged to set up sleep area on first floor of house near BR and kitchen to avoid stairs P: Pt requests discharge for later today RhoGam is indicated, offer Varicella vaccine prior to discharge Written instructions reviewed and given to pt F/up @ 2 and 6 wks Subjective Subjective Patient comments: No complaints, Pain well controlled, Tolerating diet and Flatus present Patient's Mood: happy [place] baby status: Doing well, Nursing well, Rooming in and Strong Bonding Observed feeding status: Exclusively breast feeding Exam Physical Exam Vital signs: Temp Pulse Resp BP Pulse Ox 97.7 F 76 14 106/65 97 05/20/24 19:45 05/20/24 19:45 05/20/24 19:45 05/20/24 19:45 05/20/24 15:11 Vital Signs Reviewed: Yes Constitutional Constitutional: no acute distress, average body habitus and cooperative HEENT Exam HEENT Exam: Normal Neck Exam Neck Exam: Normal Respiratory Exam Respiratory Exam: Normal Cardiovascular Exam Cardiovascular Exam: Normal Abdominal Exam Abdomen: Other (soft, nontender) Fundal Exam Fundus: Below Umbilicus and Firm Rectal Exam Rectal Exam: Normal Exam Perineum: Edematous and Repair Intact Extremities Exam Extremity Exam: Normal, Full ROM and Warm to Touch Back/Spine/Pelvis Exam Back Exam: Normal Skin Exam Skin Exam: Normal Neurological Exam Neurological Exam: Normal Psychiatric Exam Psychiatric Exam: Normal
[2024-05-21 08:20] VITALS: BP 108/64; PULSE 105; RESP 16; TEMP 37.1
[2024-05-21 09:23] VITALS: TEMP 37.1
[2024-05-21] MEDS: Ibuprofen 600 MG TAB PO (09:23)
[2024-05-21 09:24] VITALS: TEMP 37.1
[2024-05-21] MEDS: Acetaminophen 325 MG TAB 650 MG PO (09:24)
[2024-05-21] MEDS: Dibucaine 1% 28 GM TUBE TP (09:27)
[2024-05-21] MEDS: Docusate Sodium 100 MG CAP PO (10:18)
--- NOTE | 2024-05-21 10:51 | DSE_ITS ---
Date of service: 05/21/24 Time of Service: 10:52 DS: Diagnosis Discharge Diagnosis (1) Term delivered: Status: Acute Discharge Plan Disposition Patient Disposition: Home Condition: Good Discharge Details Reason For Visit: Early Labor Admit Date/Time: 05/20/24 02:17 Admit Provider: Jenelle Benson Attending Provider: Jenelle Benson Primary Care Provider: Kaylynn Tristan Home Meds and New Rx's Prescriptions: No Action PNV,calcium [id number] acid 27 mg iron- 1 mg tablet 1 tab PO DAILY Qty: 90 4RF Rx Instructions: give with food (meal/snack) Discharge Instructions Additional Instructions: Please keep your 2 and 6 week appointments with the duplication specialist, call for any and all concerns Stand Alone Forms: BC Instructions, BC Post Vaginal Deliver Activity:: Activity as Tolerated Equipment/Supplies:: No Equipment Needed Diet:: Normal Diet OB:DS Summary Summary Vaginal Delivery Method: Spontaneaous Laceration Extension: Second Degree Contraception Discussed Contraception Discussed: Yes Contraceptive Plan: Control Pill/Patch, [place] Infant Gender-Baby A: Male weight: 10 lb 7.375 oz Status at Discharge Functional status at discharge: independent ambulation Overall status at discharge: patient is progressing back to baseline Mental Status: mental status grossly normal Speech and Movement: speech and movement normal and speech clear Mood: congruent mood Affect: normal affect Quality:SDOH Health Related Social Needs: No Data to Display Exam Physical Exam Vital signs: Temp Pulse Resp BP Pulse Ox 98.8 F 105 H 16 108/64 97 05/21/24 09:24 05/21/24 08:20 05/21/24 08:20 05/21/24 08:20 05/20/24 15:11 Vital Signs Reviewed: Yes Constitutional Constitutional: no acute distress, average body habitus and cooperative HEENT Exam HEENT Exam: Normal Neck Exam Neck Exam: Normal Respiratory Exam Respiratory Exam: Normal Cardiovascular Exam Cardiovascular Exam: Normal Abdominal Exam Abdomen: Other (soft, nontender) Fundal Exam Fundus: Below Umbilicus and Firm Rectal Exam Rectal Exam: Normal Exam Perineum: Edematous and Repair Intact Extremities Exam Extremity Exam: Normal, Full ROM and Warm to Touch Back/Spine/Pelvis Exam Back Exam: Normal Skin Exam Skin Exam: Normal Neurological Exam Neurological Exam: Normal Psychiatric Exam Psychiatric Exam: Normal Additional findings Additional findings: Deferred, pt asleep PFSH All Active Problems (Updated 05/21/24 @ 02:11 by Jenelle Benson) Term delivered (Acute) Left renal stone (Acute) Rh negative state in antepartum period (Acute) Sciatic nerve pain (Acute) Susceptible to varicella (non-immune), currently (Acute) (Acute) Medical History (Updated 05/21/24 @ 02:11 by Jenelle Benson) Normal labor Family history of thyroid disease in mother Vaginal irritation Vaginal discharge during Dysuria during Left sided abdominal pain Constipation w/u by PCP, considering GI referral Hemorrhagic cysts of both ovaries Family History Mother Hypothyroidism Father No problems noted. Sister No problems noted. Sister No problems noted. Brother No problems noted. Social History Smoking/Tobacco Use Status: Never Smoking risk assessment performed?: Yes Alcohol Intake: never Substance use type: does not use Housing: house current occupation: [employer] Pets and animals: Yes Pets and animals: dog(s) Sexually active: Yes Do you think of yourself as: straight/heterosexual Current gender identity: female Do you feel safe at home: Yes Do you feel safe in your relationship?: Yes History History 1 Para 0 Hx # Term Pregnancies 0 Multiple births 0 Hx # Pregnancies 0 Ectopic pregnancies 0 AB induced 0 Hx Number of Living Children 0 AB spontaneous 0 DS: Data Vitals/I&O Vitals and I&O: Vital Signs Temperature 98.8 F 05/21/24 09:24 Temperature 97.7 F 05/20/24 04:31 Temperature Source Oral 05/21/24 08:20 Pulse 105 H 05/21/24 08:20 Pulse 96 05/20/24 04:31 Pulse Rhythm Regular 05/21/24 08:20 Respiratory Rate 16 05/21/24 08:20 Respiratory Depth Normal 05/21/24 08:20 Blood Pressure 108/64 05/21/24 08:20 Blood Pressure 121/64 05/20/24 04:31 Blood Pressure Mean 78 05/21/24 08:20 Pulse Oximetry 97 05/20/24 15:11 Pain Level 3 05/21/24 09:24 Intake & Output 05/20/24 05/20/24 05/21/24 11:59 23:59 11:59 Intake Total 552.083 / 1052.083 500 / 1052.083 Output Total 160 / 1860 1700 / 1860 Balance 392.083 / -807.917 -1200 / -807.917 Weight 195 lb Intake: IV 552.083 / 552.083 Oral 500 / 500 Output: Urine 160 / 1860 1700 / 1860 Other: Urine Color Yellow Dark Jessica Dark Jessica Urine Appearance Clear Clear Urine Odor None Comment Straight cath Voiding Methods Toilet Data Completed and Pending Labs on day of discharge: Labs from last 24 hours 05/21/24 05/20/24 07:00 03:34 Screen Pending Rhogam Unit Number [id number] Unit Expiration Date 11/30/2024 Product Lot # [id number]
[2024-05-21] MEDS: Varicella Virus Vaccine (Live) 0.5 ML SC (11:21)
[2024-05-21] MEDS: RHO(D) Immune Globulin 1,500 UNIT Syringe 1500 UNIT IM ×2 (11:25→11:39)
== END 2024-05-21 16:47 | disposition home or self-care (01) | DRG 806 ==
LOC: BCD 02:45 → OBS 02:45
PROVIDERS: Admitting Provider Advanced Practice Midwife; PCP Nurse Practitioner Family; Visit Provider Advanced Practice Midwife
DX: N13.30 Unspecified hydronephrosis; O48.0 Post-term pregnancy; Z37.0 Single live birth; O36.63X0 Maternal care for excessive fetal growth, third trimester, not applicable or unspecified; Z3A.41 41 weeks gestation of pregnancy; O75.89 Other specified complications of labor and delivery; M54.32 Sciatica, left side; O26.893 Other specified pregnancy related conditions, third trimester; Z67.31 Type AB blood, Rh negative; O99.892 Other specified diseases and conditions complicating childbirth; O70.1 Second degree perineal laceration during delivery; O99.62 Diseases of the digestive system complicating childbirth; K59.00 Constipation, unspecified; O34.83 Maternal care for other abnormalities of pelvic organs, third trimester; N83.202 Unspecified ovarian cyst, left side; N83.201 Unspecified ovarian cyst, right side
CPT/HCPCS: 36415; 85027; 85461; 86850; 86900; 86901; 90384; 90716; 86870; J2790

== ENCOUNTER 2024-09-09 16:58 | Outpatient (REF) | payer MEDICAID, SELFPAY | END 2024-09-09 16:59 | disposition home or self-care (01) | LOC: LBN 16:58 | PROVIDERS: PCP Nurse Practitioner Family; Visit Provider Physician Assistant | DX: J02.9 Acute pharyngitis, unspecified (principal) | CPT/HCPCS: 87070 ==

== ENCOUNTER 2024-11-01 18:34 | Outpatient (REF) | payer MEDICAID, SELFPAY ==
[2024-11-01 15:39] LABS: COVID-19 PCR Negative (Negative); Influenza A PCR Positive (Negative); Influenza B PCR Negative (Negative); RSV PCR Negative (Negative)
[2024-11-01 15:41] LABS: Source NASOPHARYNX
== END 2024-11-01 18:35 | disposition home or self-care (01) ==
LOC: NCHCN 18:34
PROVIDERS: PCP Nurse Practitioner Family; Visit Provider Nurse Practitioner Family
DX: R05.9 Cough, unspecified (principal)
CPT/HCPCS: 87637

== ENCOUNTER 2025-04-04 02:17 | Outpatient (CLI) | payer MEDICAID, SELFPAY ==
--- NOTE | 2025-04-04 07:15 | DI.US_ITS ---
Exam(s) US RENAL EXAM: US RENAL CLINICAL HISTORY: KIDNEY STONE,CALCULUS OF KIDNEY,N20.0. TECHNIQUE: Jackson scale imaging and color doppler were used. COMPARISON: US US RENAL from 02/05/2024 FINDINGS: Right kidney: 11.2cm Echogenicity: Normal Hydronephrosis: No Cyst or mass: No Nephrolithiasis: 5 millimeter echogenic focus seen at the lower pole of the right kidney which could represent artifact versus stone. Left kidney: 11.0cm Echogenicity: Normal Hydronephrosis: No Cyst or mass: No Nephrolithiasis: A 4 millimeter stone is noted near the lower pole of the left kidney. Bladder:Normal. Both ureteral jets were seen. Prevoid vol:79 cc Postvoid vol:Not performed cc A 4 centimeter simple left ovarian cyst is noted. IMPRESSION: 5 millimeter echogenic focus seen at the lower pole of the right kidney which could represent artifact versus stone. 4 millimeters stone lower pole left kidney. No hydronephrosis. 4 centimeter simple left ovarian cyst. DATA REPOSITORY:
== END 2025-04-04 02:37 ==
LOC: DI 02:17
PROVIDERS: PCP Nurse Practitioner Family; Visit Provider Nurse Practitioner Family
DX: N20.0 Calculus of kidney (principal)
CPT/HCPCS: 76770

== ENCOUNTER 2025-04-25 03:11 | Outpatient (CLI) | payer MEDICAID, SELFPAY ==
--- NOTE | 2025-04-25 06:45 | DI.CT_ITS ---
Exam(s) CT ABDOMEN PELVIS WO EXAM: CT ABDOMEN PELVIS WO CLINICAL HISTORY: stone evaluation,compare with US,LT RENAL STONE,N20.0. TECHNIQUE: Imaging Protocol: Axial computed tomography images with coronal and sagittal reformatted images were created and reviewed. COMPARISON: CT CT ABDOMEN PELVIS W from 06/06/2022 US US RENAL from 04/04/2025 FINDINGS: ABDOMEN: Lung Bases: Normal where visualized. Liver: Normal density. No measurable mass. Gallbladder and biliary tract: No radiodense calculus or biliary ductal dilation. Pancreas: Normal density, no abnormal calcifications or inflammatory process. Spleen: Normal. Kidneys: Normal size, contour and axis.There is a 2 mm stone in the superior pole of the left kidney. There are 3 nonobstructing stones in the lower pole of the left kidney. The largest measuring 2-3 mm. There is no hydronephrosis. No masses seen. Adrenal glands: No mass is seen. Lymph nodes: Within normal limits. Abdominal Aorta: Abdominal portion non-dilated. PELVIS: Bladder:Symmetric distention, no gross wall thickening. Bowel: No obstruction or bowel wall thickening. Appendix is unremarkable. Peritoneal cavity: There is a trace amount of free fluid in the cul-de-sac which is likely physiologic. No free air. Reproductive organs: Unremarkable as visualized. Bones: Within normal limits. Soft Tissues: Within normal limits. IMPRESSION: Left nephrolithiasis. No evidence of hydronephrosis. RADIATION DOSE DELIVERED: 406.71mGy.cm Total DLP DATA REPOSITORY: All CT scans at this facility are submitted to the National Radiology Data Registry (NRDR) Dose Index Registry (DIR) with the [employer] ([employer]). RADIATION OPTIMIZATION: All CT scans at this facility use at least one of these dose optimization techniques: automated exposure control; mA and/or kV adjustment per patient size (includes targeted exams where dose is matched to clinical indication); or iterative reconstruction.
== END 2025-04-25 03:31 ==
LOC: DI 03:11
PROVIDERS: PCP Nurse Practitioner Family; Visit Provider Urology
DX: N20.0 Calculus of kidney (principal)
CPT/HCPCS: 74176

== ENCOUNTER 2025-08-03 19:56 | Outpatient (REF) | payer MEDICAID, SELFPAY ==
[2025-08-05 13:55] LABS: Bacterial Vaginosis (BV) Positive (Negative); Candida glabrata Negative (Negative); Candida species group Positive (Negative); Chlamydia Result Negative (Negative); GC Result Negative (Negative)
== END 2025-08-03 19:57 | disposition home or self-care (01) ==
LOC: LBN 19:56
PROVIDERS: PCP Nurse Practitioner Family; Visit Provider Physician Assistant
DX: N89.8 Other specified noninflammatory disorders of vagina (principal)
CPT/HCPCS: 81513; 87481; 87491; 87591; 87661